=== PATIENT | female | born 1955 | race Caucasian/White ===

== ENCOUNTER → 2020-09-01 09:07 | Outpatient (CLI) | payer MEDICARE, SELFPAY ==
--- NOTE | ~2020-09-01 | DEXA_ITS ---
Bone Density Report Name: Mery Gutierrez Age: 65 Sex: Female Ethnicity: White Date of : 1955 Indication: postmenopausal; screening for osteoporosis; hysterectomy; Referring Provider: Kamilah Maynard Study: Bone densitometry was performed. Exam Date: September 01, 2020 Accession number: [id number] Bone Density: Region BMD T-score Z-score Classification AP Spine (L1-L4) 1.028 -0.2 1.8 Normal Femoral Neck (Left) 0.799 -0.5 1.2 Normal Total Hip (Left) 0.944 0.0 1.4 Normal Femoral Neck (Right) 0.663 -1.7 0.0 Osteopenia Total Hip (Right) 0.833 -0.9 0.5 Normal Total Hip Mean 0.889 -0.5 1.0 Normal World Health Organization criteria for BMD impression classify patients as: Normal (T-score at or above -1.0), Osteopenia (T-score between -1.0 and -2.5), or Osteoporosis (T-score at or below -2.5). 10-year Fracture Risk(1): Major Osteoporotic Fracture 8.4% Hip Fracture 1.0% Reported Risk Factors: [place] (), Neck BMD=0.663, BMI=42.8 Input outside FRAX(R) limits. Adjusted to:Duecaq=603 kg (1) FRAX(R) Version 3.08. Fracture probability calculated for an untreated patient. Fracture probability may be lower if the patient has received treatment. Clinical Information Provided by Patient: Has the following medical conditions: Hysterectomy Patient maximum height was 68.0 Menopause Age: 53 No regular weight bearing exercise Onset of menses at age 11 Number of children 3 Impression: The patient has low bone mass, based on the Right Femoral Neck T-score. The patient has an estimated ten-year risk of hip fracture of 1% and an estimated ten-year risk of major fracture of 8.4%, based on the WHO FRAX algorithm. Discussion: BONE DENSITY IS LOW AT ONE OR MORE SKELETAL SITES. This patient's lowest T-score is low at one or more skeletal sites. It meets the World Health Organization's (WHO) criteria for ?low bone mass? (T-score between -1.0 and -2.5). The patient's 10-year risk of fracture as calculated by FRAX is less than the threshold where pharmacological therapy is recommended by the National Osteoporosis Foundation (NOF). However, all treatment decisions require clinical judgment and consideration of individual patient factors, including patient preferences, comorbidities, previous drug use, risk factors not captured in the FRAX model (e.g., frailty, falls, vitamin D deficiency, increased bone turnover, interval significant decline in bone density) and possible under or overestimation of fracture risk by FRAX. The patient should follow a healthful lifestyle (good nutrition with adequate calcium and vitamin D, and appropriate weight-bearing exercise). Follow-Up: Consider repeating this study in 2 to 3 years to reassess this patient's status, or sooner if there is some new clinical indication.
--- NOTE | ~2020-09-01 | MM_ITS ---
EXAMINATION: MM screening shelly BI w simona HISTORY: Screening mammogram TECHNIQUE: Craniocaudal and mediolateral oblique 3-D tomosynthesis images were obtained and synthetic 2-D images were generated. CAD analysis was submitted and interpreted. COMPARISON: 05/10/2019, 02/16/2018 bilateral digital screening mammogram examinations BREAST PARENCHYMAL COMPOSITION: There are scattered areas of fibroglandular density. FINDINGS: Heart monitor device is noted in the left breast. There are some new microcalcifications in the posterior inner right breast. Diagnostic right mammogra m is recommended, with ultrasound if required. Otherwise no suspicious mass, architectural distortion, malignant calcification, skin thickening or r etraction or significant new or developing density of either breast is evident. IMPRESSION: 1. New microcalcifications in posterior inner right breast 2. Diagnostic right mammogram is recommended, with ultrasound if required BI-RADS Category 0: Incomplete: Needs additional imaging evaluation. Reviewed, dictated and finalized at location A. USION MANAGER
== END ==
PROVIDERS: PCP Family Medicine; Visit Provider Physician Assistant
DX: Z78.0 Asymptomatic menopausal state (principal); Z12.31 Encounter for screening mammogram for malignant neoplasm of breast; R92.8 Other abnormal and inconclusive findings on diagnostic imaging of breast; M85.851 Other specified disorders of bone density and structure, right thigh
CPT/HCPCS: 77063; 77067; 77080

== ENCOUNTER → 2020-09-26 09:28 | Outpatient (CLI) | payer MEDICARE, SELFPAY ==
--- NOTE | ~2020-09-26 | MM_ITS ---
EXAMINATION: MM diagnostic mammo unilat RT HISTORY: Indeterminate right breast calcifications on screening mammogram TECHNIQUE: Additional images of the right breast were performed. CAD analysis was submitted and inter preted. COMPARISON: 09/01/2020, 05/10/2019, 02/16/2018 FINDINGS: There are a few groups of punctate calcifications scattered throughout the outer breast whi ch appear round in morphology. No associated mass is identified. IMPRESSION: 1. Probably benign right breast calcifications. 2. Recommend 6 month follow-up right diagnostic mammogram. BI-RADS category 3, probably benign findings. Reviewed, dictated and finalized at location A.
== END ==
PROVIDERS: PCP Family Medicine; Visit Provider Family Medicine
DX: R92.1 Mammographic calcification found on diagnostic imaging of breast (principal)
CPT/HCPCS: 77065

== ENCOUNTER → 2021-04-17 09:19 | Outpatient (CLI) | payer MEDICARE, SELFPAY ==
--- NOTE | ~2021-04-17 | MM_ITS ---
EXAMINATION: MM diagnostic shelly RT w simona HISTORY: Follow-up calcifications TECHNIQUE: Additional 3-D tomosynthesis images of the right breast were performed and synthetic 2-D i mages were generated. CAD analysis was submitted and interpreted. COMPARISON: Comparison to multiple prior studies sequentially, with oldest reviewed study dated 02/16. BREAST PARENCHYMAL COMPOSITION: Breast composed of scattered areas of fibroglandular density. FINDINGS: There are scattered stable punctate right breast calcifications without significant interva l change. No new masses or architectural distortion. IMPRESSION: 1. Stable likely benign right breast calcifications. 2. Recommend 6 month follow-up diagnostic bilateral mammogram. BI-RADS category 3, probably benign findings. Reviewed, dictated and finalized at location A.
== END ==
PROVIDERS: PCP Family Medicine; Visit Provider Physician Assistant
DX: R92.8 Other abnormal and inconclusive findings on diagnostic imaging of breast (principal); R92.1 Mammographic calcification found on diagnostic imaging of breast
CPT/HCPCS: 77061; 77065; G0279

== ENCOUNTER 2021-07-24 08:41 | Outpatient (CLI) | payer MEDICARE, SELFPAY ==
--- NOTE | ~2021-07-24 | US_ITS ---
EXAMINATION: US retroperitoneal comp DATE: 07/24/2021 09:35 INDICATION: Sudden worsening of renal function TECHNIQUE: Multiple ultrasound grayscale images of the kidneys were obtained. COMPARISON: None. FINDINGS: The right kidney measures 12.7 x 5.6 x 4.4 cm. The left kidney measures 11.7 x 4.3 x 4.6 cm. Diffuse mild bilateral renal cortical atrophy with normal echogenicity. There is no hydronephrosis in either kidney. No stones identified. The bladder is normal. IMPRESSION: 1. Likely age-related diffuse mild bilateral renal cortical atrophy. No hydronephrosis. Reviewed, dictated and finalized at location A. CAL EFFECTS CAMERA OPERATOR IMPRESSION: 1. Likely age-related diffuse mild bilateral renal cortical atrophy. No hydron ephrosis.
== END 2021-07-24 08:42 | disposition home or self-care (01) ==
PROVIDERS: PCP Family Medicine; Visit Provider Family Medicine
DX: E13.29 Other specified diabetes mellitus with other diabetic kidney complication (principal); N28.9 Disorder of kidney and ureter, unspecified; N26.1 Atrophy of kidney (terminal)
CPT/HCPCS: 76770

== ENCOUNTER 2021-08-17 10:48 | Observation (INO) | payer MEDICARE, SELFPAY ==
[2021-08-17] VITALS (26 sets, daily range): BP systolic 119–182; BP diastolic 52–155; PULSE 73–88; RESP 11–21; TEMP 36.8–36.9; O2SAT 97–100; BMI 42.5
--- NOTE | ~2021-08-17 | US_ITS ---
EXAMINATION: US carotid duplex BI DATE: 08/17/2021 13:49 INDICATION: Right-sided weakness TECHNIQUE: Grayscale, color Doppler, and pulsed Doppler images of the cervical carotid arteries were obtained. The degree of vessel stenosis is placed in one of the following categories: normal, <50%, 5 0-69%, >=70% but less than near-occlusion, near-occlusion, or total occlusion. Note that percent sten osis relative to normal distal artery lumen diameter is indirectly measured from velocity measurement s as described by Bakari, et al. Radiology 2003; 229:340-346. COMPARISON: None. FINDINGS: RIGHT: The right common carotid artery (CCA) peak systolic velocity (PSV) is 55 cm/s. The right internal car otid artery (ICA) PSV is 66 cm/s. The right ICA end-diastolic velocity (EDV) is 16 cm/s. The right IC A/CCA PSV ratio is 1.2. Grayscale and color Doppler images yield an estimate of less than 50%/greater than or equal to 50% diameter reduction from plaque in the ICA. The external carotid artery (ECA) PS V is 82 cm/s. There is antegrade flow in the right vertebral artery. LEFT: The left CCA PSV is 71 cm/s. The left ICA PSV is 76 cm/s. The left ICA EDV is 14 cm/s. The left ICA/C CA PSV ratio is 1.1. Grayscale and color Doppler images yield an estimate of less than 50%/greater th an or equal to 50% diameter reduction from plaque in the ICA. The ECA PSV is 106 cm/s. There is anteg rade flow in the left vertebral artery. IMPRESSION: 1. <50% stenosis in the right internal carotid artery. 2. <50% stenosis in the left internal carotid artery. Reviewed, dictated and finalized at location A. TH CARE ASSISTANT
--- NOTE | ~2021-08-17 | CT_ITS ---
EXAMINATION: CTA brain carotid DATE: 08/17/2021 12:11 INDICATION: Right-sided weakness TECHNIQUE: Computed tomographic angiography (CTA) of the head was performed without and with 100 mL O mnipaque-350 intravenous contrast. CTA of the neck was performed with intravenous contrast. The dose- length product was 1827.97 mGy-cm. Maximum intensity projection and volume rendered 3D-reconstruction s were created by the technologist on a separate workstation. Automated exposure control and iterativ e reconstruction technique were employed. COMPARISON: None. FINDINGS: HEAD CTA: There is no intracranial hemorrhage or abnormal mass lesion. There is encephalomalacia in t he right frontal lobe at the site of prior infarction. Low attenuation and loss of damon-white differe ntiation are seen in the right frontoparietal region. The ventricles are normal. There is no abnormal mass effect or midline shift. The basal cisterns are patent. Changes in the globes are likely from o cular lens surgery. The paranasal sinuses, mastoids and calvarium are normal. There is no significant stenosis of the basilar artery or posterior cerebral arteries. There is no si gnificant stenosis of the intracranial internal carotid arteries or the anterior or middle cerebral a rteries. The anterior communicating artery and posterior communicating arteries are normal. There is no aneurysm. NECK CTA: The thyroid gland is unremarkable. The submandibular and parotid glands are symmetric. Ther e is no lymphadenopathy. There are no masses identified. The airway is unremarkable. There are no oss eous abnormalities. The superior mediastinum is unremarkable. There is transverse intraluminal fillin g defect near the origins of the right subclavian and right common carotid arteries. There is 0% stenosis of the proximal right internal carotid artery relative to normal distal artery l umen diameter (NASCET criteria). There is 0% stenosis of the proximal left internal carotid artery re lative to normal distal artery lumen diameter. IMPRESSION: 1. Encephalomalacia in the right frontal lobe at the site of prior infarction. Low-attenuation loss o f damon-white differentiation in the right frontoparietal region are consistent with age indeterminate infarct. Normal head CTA. 2. 0% stenosis of the proximal right internal carotid artery relative to normal distal artery lumen d iameter (NASCET criteria). 3. 0% stenosis of the proximal left internal carotid artery relative to normal distal artery lumen di ameter. 4. Transverse intraluminal filling defect at the origins of the right subclavian right common carotid arteries which could reflect dissection versus severe stenosis. Reviewed, dictated and finalized at location A. MENT PROCESSING SPECIALIST IMPRESSION: 1. Encephalomalacia in the right frontal lobe at the site of prior infarction. Low-attenuation loss of damon-white differentiation in the right frontoparietal region are consistent with age indeterminate infarct. Normal head CTA. 2. 0% stenosis of the proximal right internal carotid artery relative to normal distal artery lumen diameter (NASCET criteria). 3. 0% stenosis of the proximal left internal carotid artery relative to normal distal artery lumen diameter. 4. Transverse intraluminal filling defect at the origins of the right subclavia n right common carotid arteries which could reflect dissection versus severe st enosis.
--- NOTE | ~2021-08-17 | XR_ITS ---
EXAMINATION: XR chest 1V portable INDICATION: Right-sided weakness TECHNIQUE: Portable AP chest at 1107 hours COMPARISON: None available FINDINGS: The lungs are free of acute opacities. There is no pleural effusion or pneumothorax. The ca rdiomediastinal silhouette is normal. IMPRESSION: 1. No acute cardiopulmonary abnormality. Reviewed, dictated and finalized at location A. T ADJUSTER
--- NOTE | 2021-08-17 11:02 | ECG_ITS ---
Measurements Intervals [place] Rate: 76 P: 37 VT: 187 QRS: -10 QRSD: 77 T: 9 QT: 387 QTc: 437 Interpretive Statements SINUS RHYTHM INCOMPLETE RIGHT BUNDLE BRANCH BLOCK VOLTAGE CRITERIA FOR LVH CONSIDER INFERIOR INFARCT, AGE INDETERMINATE BASELINE ARTIFACT- V1-V2 ABNORMAL ECG Electronically Signed On 08-17-2021 12:07:11 INTAKE RN by Benjamin Davis D.O.
[2021-08-17 11:03] LABS: Glucose Point of Care 148 mg/dl (65-105)
--- NOTE | 2021-08-17 11:03 | ED.WEAKNESS ---
HPI - Weakness General Chief complaint: Suspected CVA Stated complaint: right sided numbness Time Seen by Provider: 08/17/21 10:51 Source: RN notes reviewed History of Present Illness HPI Narrative: Patient presents emergency department from home for right-sided weakness. Patient states symptoms began approximately 3:30 PM yesterday. She states she noticed numbness in her right arm and her right leg as well as some feeling unsteady with walking she also noted some weakness in her right hand states she has been dropping things in her right hand she denies any trouble speaking she denies any fever chills chest pain shortness of breath abdominal pain or any other symptoms states she does not take any blood thinners Related Data Allergies Allergy/AdvReac Type Severity Reaction Status Date / Time cephalexin Allergy Unknown Diarrhea Verified 08/17/21 10:59 Review of Systems Review of Systems: Gen.: Denies fevers or chills Eyes: Denies eye pain or visual change ENT: Denies congestion Respiratory: Denies shortness of breath or cough CV: Denies chest pain or palpitations GI: Denies abdominal pain nausea, emesis or diarrhea Musculoskeletal: Denies back pain or muscle pain Neuro: D see HPI Skin: Denies rash Except as documented, all other systems reviewed and negative PMFSH Past Medical History Medical History Acquired hypothyroidism Bilateral cataracts BMI greater than 40 Chronic kidney disease, stage 3 (moderate) Degenerative joint disease of knee Essential (primary) hypertension History of radioactive iodine thyroid ablation Hypersomnia Mixed hyperlipidemia Morbid obesity Pain, joint, knee, left 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, unspecified Surgical History Surgical History History of arthroscopy of both shoulders History of carpal tunnel release of both wrists History of cholecystectomy History of hysterectomy Family History Family History Sibling Diabetes mellitus Family history of cardiovascular disease, Onset Age: 62 Family history of malignant neoplasm Mother Hypertension Father Patient's father is Other Family history of arthritis Social History Social History Social History: Smoking status: Never smoker Second hand tobacco smoke exposure: No Alcohol intake: never Substance use: never Substance use type: does not use Gender identity (if verbalized by the patient): Female Sexual Orientation (if Verbalized by the Patient): Straight or Heterosexual Exam Narrative: APPEARANCE: No acute distress, nontoxic, resting in bed HEENT: Normocephalic, atraumatic, OMM, EYES: PERRL, EOMI NECK: Supple, nontender, full range of motion without pain, no meningismus RESPIRATORY: No respiratory distress, clear to auscultation bilaterally with no rhonchi wheezing or rales CARDIOVASCULAR: RRR s murmur ABDOMINAL: Soft, nontender, nondistended MUSCULOSKELETAL: Moves all extremities. No clubbing, cyanosis or edema. NEURO: A and O ?3, following commands, speech normal, no facial droop, muscle strength 4-5 in the right upper extremity and 5 out of 5 in left upper extremity, muscle strength 5/5 in bilateral lower extremities, decreased sensation in right upper and lower extremity compared to SKIN:: Warm, dry. Normal Color PSYCHIATRIC: Normal affect/mood Course Course Emergency Course: Patient states that she did have a stroke on the right side approximately 6 years ago she is on blood thinners for a while following that but was taken off them several years later has not been on any blood thinners Discussed with Dr. Dickens presentation and work-upagrees with consult
[2021-08-17 11:21] LABS: Basophils Absolute Auto 0.1 K/mm3 (0.0-0.1); Basophils Percent Auto 0.9 % (0.2-1.2); Eosinophils Absolute Auto 0.2 K/mm3 (0-0.3); Eosinophils Percent Auto 1.9 % (0-4.4); Hematocrit 41.1 % (37.0-47.0); Hemoglobin 13.4 g/dL (12.0-15.0); Immature Granulocyte Absolute 0.03 K/mm3 (0.00-0.031); Immature Granulocyte Percent A 0.4 % (0-0.5); Lymphocytes Absolute Auto 2.42 K/mm3 (0.9-3.2); Lymphocytes Percent Auto 31.3 % (18.3-44.2); Mean Corpuscular HGB Conc 32.6 g/dl (32-36); Mean Corpuscular Hemoglobin 30.5 pg (26-34); Mean Corpuscular Volume 93.4 fl (80-100); Mean Platelet Volume 10.9 fl (7.4-10.4); Monocytes Absolute Auto 0.5 K/mm3 (0.1-0.6); Monocytes Percent Auto 5.8 % (2.6-8.5); Neutrophils Absolute Auto 4.6 K/mm3 (1.3-6.7); Neutrophils Percent Auto 59.7 % (45.5-73.1); Platelet Count Result 195 k/mm3 (150-375); Red Cell Distribution Width 12.8 % (11.5-14.5); White Blood Count 7.7 K/mm3 (4.5-10.0)
[2021-08-17 11:35] LABS: Alanine Aminotransferase 17 U/L (4-35); Albumin Level 4.2 g/dL (3.5-5.1); Alkaline Phosphatase 67 U/L (38-126); Anion Gap 13 mmol/L (8-16); Aspartate Amino Transferase 27 U/L (14-36); Bilirubin,Total 0.9 mg/dL (0.2-1.3); Blood Urea Nitrogen 18 mg/dL (7-17); Calcium 9.1 mg/dL (8.4-10.2); Carbon Dioxide 22 mmol/L (22-30); Chloride 102 mmol/L (98-107); Estimated CRCL calculation 58 ml/min; Estimated Glomerular Filt Rate 45; Glucose 152 mg/dL (65-110); INR 1.2; Potassium 4.1 mmol/L (3.4-5.0); Prothrombin Time 14.7 Seconds (11.1-14.7); Sodium 137 mmol/L (137-145)
[2021-08-17 11:36] LABS: Partial Thromboplastin Time 29.2 SECONDS (22.3-36.8)
[2021-08-17 11:49] LABS: Troponin I < 0.012 ng/mL (0.000-0.034)
[2021-08-17] MEDS: ASPIRIN 81 MG CHEWABLE TABLET 324 MG PO (15:13)
--- NOTE | 2021-08-17 16:25 | ADMGEN ---
This patient, Mery Gutierrez, was admitted to Medical Room 252-. Patient/family oriented to hospital policies and general routines including ID bracelet, bed and alarms, visiting hours, pain management, procedures, bathroom and other care routines, personal items, smoking policy, room service/diet, and visiting hours. Information on how to activate the Rapid Response Team has been discussed. Patient/Family are encouraged to report perceived risks to care and to ask questions if they do not understand what they are told or what they should do.
[2021-08-17] MEDS: ACETAMINOPHEN 325 MG TABLET 650 MG PO (20:41)
--- NOTE | 2021-08-17 20:44 | PHAR ---
PT HOME MED TRULICITY (DULAGLUTIDE) 3 MG/0.5 ML PEN INJECTOR VERIFIED BY PHARMACY
[2021-08-17] MEDS: VERAPAMIL HCL ER 120 MG TABLET PO (21:19)
--- NOTE | 2021-08-17 22:37 | PM.IMHP ---
H&P: HPI History of Present Illness Date/Time: 08/17/21 22:37 this is a 66-year-old female patient who came to the emergency room with complaints of right-sided weakness. The patient's symptoms started yesterday at 3:30 a.m.. The patient does not have any focal weakness but tells me that she feels numb in her hands. She has never been diagnosed with neuropathy but is diabetic. The patient has had a history of having carpal tunnel release as well as ulnar nerve release. The patient stated that she keeps dropping things. She can not feel that she is holding them in her hands and it is both of her hands. The patient also stated that she feels off balance when she walks. I explained to her that the MRI machine is not available at this time. Neurology has been consulted and agrees to see the patient. She has no difficulty speaking. Carotid Doppler study was read as less than 50% stenosis on the right and left internal carotid. Head neck CTA was read as the following 1. Encephalomalacia in the right frontal lobe at the site of prior infarction. Low-attenuation loss of damon-white differentiation in the right frontoparietal region are consistent with age indeterminate infarct. Normal head CTA. 2. 0% stenosis of the proximal right internal carotid artery relative to normal distal artery lumen diameter (NASCET criteria). 3. 0% stenosis of the proximal left internal carotid artery relative to normal distal artery lumen diameter. 4. Transverse intraluminal filling defect at the origins of the right subclavian right common carotid arteries which could reflect dissection versus severe stenosis. chest x-ray was read as no acute cardiopulmonary abnormality. The patient was given an aspirin. Creatinine 1.2 which is at her baseline. Blood sugar 152. Last A1c last month was 7.1. The patient is being admitted to observation status on the date of service 08/17/2021. Chief Complaint: Numbness and tingling to hands. Review of Systems Review of Systems: All systems reviewed & are unremarkable except as noted in HPI and below Constitutional: Constitutional: Reports as per HPI and Reports no additional constitutional complaints Eyes: Eyes: Reports as per HPI and Reports no additional eye complaints ENT: Reports system reviewed and no additional complaints, except as documented and Reports Normal hearing present Cardiovascular: Cardiovascular: Reports no additional cardiovascular complaints Respiratory: Respiratory: Reports no additional respiratory complaints and Reports no additional respiratory complaints Gastrointestinal: Gastrointestinal: Reports as per HPI and Reports no additional gastrointestinal complaints Musculoskeletal: Musculoskeletal: Reports no additional musculoskeletal complaints Integumentary/Breasts: Skin/Breast: Reports system reviewed and no additional complaints, except as docu and Reports as per HPI Neurologic: Reports system reviewed and no additional complaints, except as documented, Reports as per HPI and Reports Normal hearing present Psychiatric: Psychiatric: Reports no additional psychiatric complaints and Reports as per HPI Endocrine: Endocrine: Reports no additional endocrine complaints Hematologic/Lymphatic: Hematologic/Lymphatic: Reports no additional hematologic/lymphatic complaints Allergic/Immunologic: Allergic/Immunologic: Reports no additional allergic/immunologic complaints [facility] Past Medical History Medical History (Updated 08/17/21 @ 22:44 by No Lucio NP) Acquired hypothyroidism Bilateral cataracts BMI greater than 40 Chronic kidney disease, stage 3 (moderate) Degenerative joint disease of knee Essential (primary) hypertension History of atrial fibrillation History of radioactive iodine thyroid ablation Hypersomnia Mixed hyperlipidemia Morbid obesity Pain, joint, knee, left 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
[2021-08-18] VITALS (12 sets, daily range): BP systolic 102–146; BP diastolic 48–70; PULSE 70–83; RESP 18–20; TEMP 36.3–37; O2SAT 95–98
[2021-08-18 00:09] LABS: Glucose Point of Care 127 mg/dl (65-105)
[2021-08-18] MEDS: ACETAMINOPHEN 325 MG TABLET 650 MG PO ×3 (02:12→14:37)
[2021-08-18 05:10] LABS: Basophils Absolute Auto 0.1 K/mm3 (0.0-0.1); Basophils Percent Auto 0.7 % (0.2-1.2); Eosinophils Absolute Auto 0.2 K/mm3 (0-0.3); Eosinophils Percent Auto 2.4 % (0-4.4); Hematocrit 39.7 % (37.0-47.0); Immature Granulocyte Absolute 0.02 K/mm3 (0.00-0.031); Immature Granulocyte Percent A 0.2 % (0-0.5); Lymphocytes Absolute Auto 3.25 K/mm3 (0.9-3.2); Lymphocytes Percent Auto 36.6 % (18.3-44.2); Mean Corpuscular HGB Conc 32.7 g/dl (32-36); Mean Corpuscular Hemoglobin 30.3 pg (26-34); Mean Corpuscular Volume 92.5 fl (80-100); Mean Platelet Volume 11.1 fl (7.4-10.4); Monocytes Absolute Auto 0.7 K/mm3 (0.1-0.6); Monocytes Percent Auto 7.9 % (2.6-8.5); Neutrophils Absolute Auto 4.6 K/mm3 (1.3-6.7); Neutrophils Percent Auto 52.2 % (45.5-73.1); Platelet Count Result 208 k/mm3 (150-375); Red Blood Count 4.29 M/mm3 (4.2-5.4); White Blood Count 8.9 K/mm3 (4.5-10.0)
[2021-08-18 05:43] LABS: Anion Gap 7 mmol/L (8-16); Blood Urea Nitrogen 18 mg/dL (7-17); CRP 0.6 mg/dL (<1.0); Calcium 9.4 mg/dL (8.4-10.2); Carbon Dioxide 29 mmol/L (22-30); Chloride 100 mmol/L (98-107); Estimated CRCL calculation 54 ml/min; Estimated Glomerular Filt Rate 41; Glucose 127 mg/dL (65-110); Potassium 3.9 mmol/L (3.4-5.0); Sodium 136 mmol/L (137-145)
[2021-08-18 06:26] LABS: Hemoglobin A1C 6.8 % (<5.7)
[2021-08-18] MEDS: LEVOTHYROXINE SODIUM 150 MCG TABLET PO (06:29)
[2021-08-18 06:44] LABS: Folic Acid 9.5 ng/mL (2.76->20)
[2021-08-18 07:41] LABS: Glucose Point of Care 130 mg/dl (65-105)
[2021-08-18] MEDS: hydroCHLOROthiazide 12.5 MG CAPSULE PO (08:23)
[2021-08-18] MEDS: LOSARTAN POTASSIUM 100 MG TABLET PO (08:23)
[2021-08-18] MEDS: ASPIRIN 325 MG ENTERIC TABLET PO (08:23)
[2021-08-18] MEDS: PANTOPRAZOLE 40 MG TABLET PO (08:23)
[2021-08-18] MEDS: ATORVASTATIN 10 MG TABLET PO (08:24)
--- NOTE | 2021-08-18 10:13 | PM.IMPN ---
Progress Note: A&P Assessment and Plan (1) Acute right-sided muscle weakness: Code(s): M62.81 - Muscle weakness (generalized) Status: Acute Assessment and Plan: -c/o weakness bilateral hands, worse on the R side with associated bilateral hand numbness -symptoms have almost completely resolved at this time -she does have a history of carpal tunnel syndrome with ulnar nerve release. -Patient may possibly have neuropathy, does have hx of DM. -may also need a nerve conduction test. -unable to perform MRI secondary to loop recorder -Neurology has been consulted. -She has been started on an aspirin. (2) CVA (cerebral vascular accident): Code(s): I63.9 - Cerebral infarction, unspecified Status: Acute Assessment and Plan: -hx of CVA w/ no residual deficit -hx of paroxysmal afib not on anticoagulation -check echocardiogram -unable to perform MRI secondary to loop recorder -Neurology has been consulted. (3) Diabetes mellitus with stage 3 chronic kidney disease: Code(s): E11.22 - Type 2 diabetes mellitus with diabetic chronic kidney disease; N18.30 - Chronic kidney disease, stage 3 unspecified Status: Acute Assessment and Plan: -Accu-Cheks AC and HS. -Sliding scale insulin. -Creatinine is 1.2 which is stable. (4) Mixed hyperlipidemia: Code(s): E78.2 - Mixed hyperlipidemia Status: Acute Assessment and Plan: -Continue with atorvastatin (5) Essential (primary) hypertension: Code(s): I10 - Essential (primary) hypertension Status: Acute Assessment and Plan: -stable -continue with losartan and verapamil (6) Acquired hypothyroidism: Code(s): E03.9 - Hypothyroidism, unspecified Status: Acute Assessment and Plan: -continue with levothyroxine -TSH WNL Subjective Date/time seen: 08/18/21 10:13 Interval history: Pt is a 66 yo female w/ hx of HTN, afib, acquired hypothyroid, HLD, DM, CKD III, and morbid obesity admitted for acute right sided weakness. Today patient states her symptoms have mostly resolved. Still has minimal numbness in her hands but no weakness. 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 Admits to intermittent mild headache. No N/V/dizziness/vision changes. No CP/SOB. Review of Systems Review of Systems: All systems reviewed & are unremarkable except as noted in HPI and below Exam Narrative: General: No acute distress, non toxic appearing, obese Eyes: PERRL, no scleral icterus HEENT: NCAT, external ears normal, MMM Respiratory: No respiratory distress, Lungs CTA bilaterally, no wheezing Cardiovascular: RRR, no murmur Abdominal: Soft, nontender, non distended, no rebound or guarding Musculoskeletal: Moves all 4 extremities, no edema Neurological: A/Ox3, speech normal, no facial asymmetry, 5/5 strength BUE and BLE Skin: Warm, dry, no rashes Psychiatric: Normal affect, normal mood Objective Data Vital Signs Vital Signs: Vital Signs - 24 hr 08/17/21 10:54 08/17/21 10:58 08/17/21 11:00 Temperature 98.2 F Pulse Rate 81 81 84 Respiratory Rate 17 15 16 Blood Pressure 176/80 H Pulse Oximetry 98 100 100 08/17/21 11:02 08/17/21 11:16 08/17/21 11:30 Temperature Pulse Rate 82 78 77 Respiratory Rate 14 12 12 Blood Pressure 176/76 H Pulse Oximetry 100 08/17/21 11:31 08/17/21 11:45 08/17/21 12:16 Temperature Pulse Rate 79 77 77 Respiratory Rate 21 H 20 Blood Pressure 152/121 H Pulse Oximetry 08/17/21 12:17 08/17/21 12:30 08/17/21 12:32 Temperature Pulse Rate 75 74 Respiratory Rate 16 16 Blood Pressure 144/75 H 182/155 H Pulse Oximetry 08/17/21 12:45 08/17/21 12:49 08/17/21 12:50 Temperature Pulse Rate 75 75 77 Respiratory Rate 15 14 16 Blood Pressure 155/63 H Pulse Oximetry 97 08/17/21 14:02 08/17/21 14:18 08/17/21 14:30 Onward
[2021-08-18 11:33] LABS: Glucose Point of Care 106 mg/dl (65-105)
--- NOTE | 2021-08-18 12:30 | WPDNEURCNPN ---
Assessment and Plan Additional Plan 1 TIA with transfers intraluminal filling defect at the origin of the right subclavian right common carotid arteries which could reflect dissection versus severe stenosis will need the vascular consultation2 encephalomalacia in the right frontal lobe at the site of the previous infarction3 diabetic neuropathy with history of bilateral ulnar nerve transposition and carpal tunnel release but ongoing complaint of numbness and weakness4 continuation of aspirin5 MRI of the head will be obtained coming week for further delineation and also for the follow-up with the vascular surgeon Consult date: 08/18/21 HPI: Mery Gutierrez is a 66 year old female[facility] complaints of right sided weakness of [id number] durations since 3:30 a.m. before the day of admission she complains of numbness in her hands she is a known diabetic but has not been diagnosed to have any diabetic neuropathy but she has had the carpal tunnel and ulnar nerve release in the past he complained of dropping things out of her hand additionally she complains of being off the balance her initial Doppler study of the carotid was read as less than 50% stenosis on the right and left but the CT head and neck CTA documented encephalomalacia in the right frontal lobe at the site of the previous in fact infarction low attenuation loss of damon white matter differentiation in the right frontoparietal area again consistent with the age indeterminate infarct but otherwise CTA was normal the documented transverse intraluminal filling defect at the origin of the right subclavian and right common carotid arteries which could reflex dissection versus severe stenosis patient was given aspirin in the emergency room her blood sugar was documented as 152 with A1c of 7.1 in the past , her past history is consistent with the acquired hypothyroidism bilateral cataracts chronic kidney disease stage 3 hypo history of atrial fibrillation pain in the joints particular the left knee with try compartmental osteoarthritis, history of cataract extraction carpal tunnel release bilaterally along with the bilateral ulnar nerve transposition Review of Systems Review of Systems: All systems reviewed & are unremarkable except as noted in HPI and below PMFSH Past Medical History Medical History Acquired hypothyroidism Bilateral cataracts BMI greater than 40 Chronic kidney disease, stage 3 (moderate) Degenerative joint disease of knee Essential (primary) hypertension History of atrial fibrillation History of radioactive iodine thyroid ablation Hypersomnia Mixed hyperlipidemia Morbid obesity Pain, joint, knee, left 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, unspecified Surgical History Surgical History H/O cataract extraction History of arthroscopy of both shoulders Arthroplasty History of carpal tunnel release of both wrists ulnar nerve release as well History of cholecystectomy History of hysterectomy Family History Family History Sibling Diabetes mellitus Family history of cardiovascular disease, Onset Age: 62 Family history of malignant neoplasm Mother Hypertension Father Patient's father is Other Family history of arthritis Social History Social History Social History: she is and has 3 children. She is a lifelong nonsmoker. She does not use any alcohol marijuana or illicit drugs. She is worked in a grocery store. Her is a durable power integrity engineer for healthcare. Code status full code. Smoking status: Never smoker Second hand tobacco smoke exposure: No Alcohol intake:
[2021-08-18 16:38] LABS: Glucose Point of Care 117 mg/dl (65-105)
[2021-08-18] MEDS: VERAPAMIL HCL ER 120 MG TABLET PO (21:07)
[2021-08-18 21:42] LABS: Glucose Point of Care 122 mg/dl (65-105)
[2021-08-19] VITALS (13 sets, daily range): BP systolic 115–136; BP diastolic 51–80; PULSE 68–75; RESP 16–18; TEMP 36.2–36.8; O2SAT 97–100
[2021-08-19] MEDS: ACETAMINOPHEN 325 MG TABLET 650 MG PO ×2 (02:26→15:40)
[2021-08-19] MEDS: LEVOTHYROXINE SODIUM 150 MCG TABLET PO (05:52)
[2021-08-19 05:55] LABS: Basophils Absolute Auto 0.1 K/mm3 (0.0-0.1); Basophils Percent Auto 0.9 % (0.2-1.2); Eosinophils Absolute Auto 0.2 K/mm3 (0-0.3); Hematocrit 39.9 % (37.0-47.0); Hemoglobin 12.9 g/dL (12.0-15.0); Immature Granulocyte Absolute 0.02 K/mm3 (0.00-0.031); Immature Granulocyte Percent A 0.2 % (0-0.5); Lymphocytes Absolute Auto 3.09 K/mm3 (0.9-3.2); Lymphocytes Percent Auto 38.2 % (18.3-44.2); Mean Corpuscular HGB Conc 32.3 g/dl (32-36); Mean Corpuscular Hemoglobin 30.1 pg (26-34); Mean Corpuscular Volume 93.2 fl (80-100); Mean Platelet Volume 10.8 fl (7.4-10.4); Monocytes Absolute Auto 0.7 K/mm3 (0.1-0.6); Monocytes Percent Auto 8.2 % (2.6-8.5); Neutrophils Percent Auto 49.5 % (45.5-73.1); Platelet Count Result 196 k/mm3 (150-375); Red Blood Count 4.28 M/mm3 (4.2-5.4); Red Cell Distribution Width 13.1 % (11.5-14.5); White Blood Count 8.1 K/mm3 (4.5-10.0)
[2021-08-19 06:04] LABS: Alanine Aminotransferase 18 U/L (4-35); Albumin Level 3.9 g/dL (3.5-5.1); Alkaline Phosphatase 58 U/L (38-126); Anion Gap 9 mmol/L (8-16); Aspartate Amino Transferase 29 U/L (14-36); Blood Urea Nitrogen 19 mg/dL (7-17); Calcium 8.9 mg/dL (8.4-10.2); Carbon Dioxide 27 mmol/L (22-30); Chloride 100 mmol/L (98-107); Estimated CRCL calculation 50 ml/min; Estimated Glomerular Filt Rate 37; Glucose 128 mg/dL (65-110); Potassium 3.8 mmol/L (3.4-5.0); Sodium 136 mmol/L (137-145)
[2021-08-19 07:45] LABS: Glucose Point of Care 168 mg/dl (65-105)
[2021-08-19] MEDS: LOSARTAN POTASSIUM 100 MG TABLET PO (08:20)
[2021-08-19] MEDS: ATORVASTATIN 10 MG TABLET PO (08:20)
[2021-08-19] MEDS: hydroCHLOROthiazide 12.5 MG CAPSULE PO (08:20)
[2021-08-19] MEDS: PANTOPRAZOLE 40 MG TABLET PO (08:20)
[2021-08-19] MEDS: ASPIRIN 325 MG ENTERIC TABLET PO (08:20)
--- NOTE | 2021-08-19 09:39 | PM.IMPN ---
Progress Note: A&P Assessment and Plan (1) Acute right-sided muscle weakness: Code(s): M62.81 - Muscle weakness (generalized) Status: Acute Assessment and Plan: -c/o weakness bilateral hands, worse on the R side with associated bilateral hand numbness -symptoms have completely resolved at this time -she does have a history of carpal tunnel syndrome with ulnar nerve release -Patient may possibly have neuropathy, does have hx of DM -may also need a nerve conduction test -unable to perform MRI secondary to loop recorder (2) CVA (cerebral vascular accident): Code(s): I63.9 - Cerebral infarction, unspecified Status: Acute Assessment and Plan: -hx of CVA w/ no residual deficit -hx of paroxysmal afib not on anticoagulation -CTA head/neck with initial read showing transverse intraluminal filling defect at the origins of the right subclavian right common carotid arteries which could reflect dissection versus severe stenosis. -carotid dopplers negative, therefore addendum added to original CTA stating given the results from follow up carotid ultrasound, finding at the origin of the right subclavian and right common carotid arteries is likely due to vessel tortuosity rather than dissection. -unable to perform MRI secondary to loop recorder, see above -discussed with Dr. Dickens the updated addendum to the CTA saying there is not likely dissection. Also informed him that we cannot do the MRI due to her pacemaker. We are still pending the echo but once that is completed he states she can go home on 81 mg aspirin and follow up with him in the office in 3 months. (3) Diabetes mellitus with stage 3 chronic kidney disease: Code(s): E11.22 - Type 2 diabetes mellitus with diabetic chronic kidney disease; N18.30 - Chronic kidney disease, stage 3 unspecified Status: Acute Assessment and Plan: -Accu-Cheks AC and HS. -Sliding scale insulin. -Creatinine stable. (4) Mixed hyperlipidemia: Code(s): E78.2 - Mixed hyperlipidemia Status: Acute Assessment and Plan: -Continue with atorvastatin (5) Essential (primary) hypertension: Code(s): I10 - Essential (primary) hypertension Status: Acute Assessment and Plan: -stable -continue with losartan and verapamil (6) Acquired hypothyroidism: Code(s): E03.9 - Hypothyroidism, unspecified Status: Acute Assessment and Plan: -continue with levothyroxine -TSH WNL Subjective Date/time seen: 08/19/21 09:39 Interval history: Pt is a 66 yo female w/ hx of HTN, afib, acquired hypothyroid, HLD, DM, CKD III, and morbid obesity admitted for acute right sided weakness. Today patient states her symptoms have resolved. Still getting an intermittent mild headache but the paraesthesias and motor weakness have completely resolved. She denies vision changes, N/V, cp/sob. Review of Systems Review of Systems: All systems reviewed & are unremarkable except as noted in HPI and below Exam Narrative: General: No acute distress, non toxic appearing, obese Eyes: PERRL, no scleral icterus HEENT: NCAT, external ears normal, MMM Respiratory: No respiratory distress, Lungs CTA bilaterally, no wheezing Cardiovascular: RRR, no murmur Abdominal: Soft, nontender, non distended, no rebound or guarding Musculoskeletal: Moves all 4 extremities, no edema Neurological: A/Ox3, speech normal, no facial asymmetry, 5/5 strength BUE and BLE Skin: Warm, dry, no rashes Psychiatric: Normal affect, normal mood Objective Data Vital Signs Vital Signs: Vital Signs - 24 hr 08/18/21 12:00 08/18/21 15:00 08/18/21 16:00 Temperature 97.4 F L Pulse Rate 78 83 75 Respiratory Rate 20 Blood Pressure 110/70 Pulse Oximetry 98 08/18/21 19:33 08/18/21 19:35 08/18/21 19:38 Temperature 98.6 F Pulse Rate 70 Respiratory Rate 18 Blood Pressure
--- NOTE | 2021-08-19 10:26 | ECHO_ITS ---
Patient Info Name: Mery Gutierrez Age: 66 years : 1955 Gender: Female Ht: 69 in Wt: 287 lbs BSA: 2.58 m2 HR: 72 bpm BP: 122 / 80 mmHg Technical Quality: Good Exam Date: 08/19/2021 12:59 PM Exam Location: [facility] Patient Status: Outpatient Admit Date: 08/17/2021 Staff Ordering Physician: Delfina James PA-C Boiler Water Tester: Cash Murphy RDCS, RT Attending Provider: Delfina James PA-C Referring Physician: Erika SOTO; Exam Type: CA echo dop color flow w con Study Info Complete two-dimensional, color flow and Doppler transthoracic echocardiogram is performed with contrast to opacify the left ventricle and to improve the deliniation of the left ventricle endocardial borders. Summary 1. Left ventricular chamber dimension is normal. 2. Definity contrast administered improved wall motion interpretation. 3. Left ventricular systolic function is normal, estimated at 65-70%. 4. There is mildly increased left ventricular wall thickness. 5. The left ventricular diastolic function is grade I diastolic dysfunction. 6. E/e' 10 is mildly elevated. 7. Left atrial chamber dimension is moderately enlarged. 8. There is mild aortic valve regurgitation. 9. The mitral valve has moderately calcified leaflets. 10. There is trace tricuspid valve regurgitation. Left Ventricle E/e' 10 is mildly elevated. Definity contrast administered improved wall motion interpretation. Left ventricular chamber dimension is normal. Left ventricular systolic function is normal, estimated at 65-70%. There is mildly increased left ventricular wall thickness. The left ventricular diastolic function is grade I diastolic dysfunction. Right Ventricle Right ventricular systolic function is normal and with normal TAPSE 2.2 cm. Right ventricular chamber dimension is normal. Left Atria Left atrial chamber dimension is moderately enlarged. Right Atria Right atrial chamber dimension is normal. Aortic Valve The aortic valve is trileaflet. There is no aortic valve stenosis. There is mild aortic valve regurgitation. Pulmonic Valve There is no pulmonic regurgitation. Mitral Valve The mitral valve has moderately calcified leaflets. There is no mitral valve stenosis. There is no mitral valve regurgitation. Tricuspid Valve There is trace tricuspid valve regurgitation. RVSP is not calculated due to an inadequate TR jet. Pericardium/Pleural There is no pericardial effusion. Inferior Vena Cava Normal inferior vena cava with >50% collapse upon inspiration consistent with normal right atrial pressure, 5 mmHg. Aorta The aortic root size at the sinus of Valsalva is normal. Left Ventricular Outflow Tract Name Value Normal LVOT Doppler LVOT Peak Gradient 4 mmHg LVOT Mean Gradient 2 mmHg LVOT VTI 21.68 cm LVOT VTI/AV VTI Ratio 0.86 Mitral Valve Name Value Normal MV Doppler
[2021-08-19 11:23] LABS: Glucose Point of Care 137 mg/dl (65-105)
[2021-08-19] MEDS: PERFLUTREN LIPID MICROSPHERES 1.5 ML VIAL DILUTED TO 10 ML TOTAL VOLUME IV PUSH (13:15)
--- NOTE | 2021-08-19 13:15 | IVDEFINITY ---
Prior to administration of IV Definity the patient was educated on the risks and benefits of the imaging enhancing agent including potential adverse side effects. The patient verbalized understanding. Allergies were verified. No exclusion criteria were identified and at least one of the following inclusion criteria were met: 1) physician request, 2) patient technically difficult to image (per the [place] [employer] guidelines of two or more segments not discernable within the apical view), or 3) questionable left ventricular function. ?
[2021-08-19 16:29] LABS: Glucose Point of Care 109 mg/dl (65-105)
[2021-08-19 20:19] LABS: Glucose Point of Care 130 mg/dl (65-105)
[2021-08-19] MEDS: VERAPAMIL HCL ER 120 MG TABLET PO (20:23)
[2021-08-20] VITALS: PULSE 73
[2021-08-20 01:25] VITALS: O2SAT 96
[2021-08-20 04:00] VITALS: PULSE 68
[2021-08-20 04:17] VITALS: BP 120/60; PULSE 66; RESP 17; TEMP 36.2; O2SAT 98
[2021-08-20 05:51] LABS: Hematocrit 38.3 % (37.0-47.0); Hemoglobin 12.8 g/dL (12.0-15.0); Mean Corpuscular HGB Conc 33.4 g/dl (32-36); Mean Corpuscular Hemoglobin 30.4 pg (26-34); Mean Platelet Volume 10.6 fl (7.4-10.4); Platelet Count Result 206 k/mm3 (150-375); Red Blood Count 4.21 M/mm3 (4.2-5.4); Red Cell Distribution Width 12.9 % (11.5-14.5); White Blood Count 7.4 K/mm3 (4.5-10.0)
[2021-08-20 06:04] LABS: Anion Gap 8 mmol/L (8-16); Blood Urea Nitrogen 19 mg/dL (7-17); Calcium 8.8 mg/dL (8.4-10.2); Carbon Dioxide 26 mmol/L (22-30); Chloride 99 mmol/L (98-107); Estimated CRCL calculation 50 ml/min; Estimated Glomerular Filt Rate 37; Glucose 130 mg/dL (65-110); Potassium 3.5 mmol/L (3.4-5.0); Sodium 133 mmol/L (137-145)
[2021-08-20] MEDS: LEVOTHYROXINE SODIUM 150 MCG TABLET PO (06:09)
[2021-08-20 07:49] LABS: Glucose Point of Care 138 mg/dl (65-105)
[2021-08-20] MEDS: ASPIRIN 325 MG ENTERIC TABLET PO (07:58)
[2021-08-20] MEDS: ACETAMINOPHEN 325 MG TABLET 650 MG PO (07:58)
[2021-08-20] MEDS: PANTOPRAZOLE 40 MG TABLET PO (07:59)
[2021-08-20] MEDS: LOSARTAN POTASSIUM 100 MG TABLET PO (07:59)
[2021-08-20] MEDS: ATORVASTATIN 10 MG TABLET PO (07:59)
[2021-08-20] MEDS: hydroCHLOROthiazide 12.5 MG CAPSULE PO (07:59)
[2021-08-20 08:00] VITALS: PULSE 78
--- NOTE | 2021-08-20 08:45 | PM.IMPN ---
Progress Note: A&P Assessment and Plan (1) Acute right-sided muscle weakness: Code(s): M62.81 - Muscle weakness (generalized) Status: Acute Assessment and Plan: -c/o weakness bilateral hands, worse on the R side with associated bilateral hand numbness -symptoms have completely resolved at this time -she does have a history of carpal tunnel syndrome with ulnar nerve release -Patient may possibly have neuropathy, does have hx of DM -may also need a nerve conduction test -unable to perform MRI secondary to loop recorder -c/o weakness bilateral hands, worse on the R side with associated bilateral hand numbness -symptoms have completely resolved at this time -she does have a history of carpal tunnel syndrome with ulnar nerve release -Patient may possibly have neuropathy, does have hx of DM -may also need a nerve conduction test -unable to perform MRI secondary to loop recorder (2) CVA (cerebral vascular accident): Code(s): I63.9 - Cerebral infarction, unspecified Status: Acute Assessment and Plan: -hx of CVA w/ no residual deficit -hx of paroxysmal afib not on anticoagulation -CTA head/neck with initial read showing transverse intraluminal filling defect at the origins of the right subclavian right common carotid arteries which could reflect dissection versus severe stenosis. -carotid dopplers negative, therefore addendum added to original CTA stating given the results from follow up carotid ultrasound, finding at the origin of the right subclavian and right common carotid arteries is likely due to vessel tortuosity rather than dissection. -unable to perform MRI secondary to loop recorder, see above -discussed with Dr. Dickens the updated addendum to the CTA saying there is not likely dissection. Also informed him that we cannot do the MRI due to her pacemaker. We are still pending the echo but once that is completed he states she can go home on 81 mg aspirin and follow up with him in the office in 3 months. -hx of CVA w/ no residual deficit -hx of paroxysmal afib not on anticoagulation -CTA head/neck with initial read showing transverse intraluminal filling defect at the origins of the right subclavian right common carotid arteries which could reflect dissection versus severe stenosis. -carotid dopplers negative, therefore addendum added to original CTA stating given the results from follow up carotid ultrasound, finding at the origin of the right subclavian and right common carotid arteries is likely due to vessel tortuosity rather than dissection. -unable to perform MRI secondary to loop recorder, see above -discussed with Dr. Dickens the updated addendum to the CTA saying there is not likely dissection. Also informed him that we cannot do the MRI due to her pacemaker. We are still pending the echo but once that is completed he states she can go home on 81 mg aspirin and follow up with him in the office in 3 months. (3) Diabetes mellitus with stage 3 chronic kidney disease: Code(s): E11.22 - Type 2 diabetes mellitus with diabetic chronic kidney disease; N18.30 - Chronic kidney disease, stage 3 unspecified Status: Acute Assessment and Plan: -Accu-Cheks AC and HS. -Sliding scale insulin. -Creatinine stable. -Accu-Cheks AC and HS. -Sliding scale insulin. -Creatinine stable. (4) Mixed hyperlipidemia: Code(s): E78.2 - Mixed hyperlipidemia Status: Acute Assessment and Plan: -Continue with atorvastatin -Continue with atorvastatin (5) Essential (primary) hypertension: Code(s): I10 - Essential (primary) hypertension Status: Acute Assessment and Plan: -stable -continue with losartan and verapamil -stable -continue with losartan and verapamil (6) Acquired hypothyroidism: Code(s): E03.9 - Hypothyroidism, unspecified Stat
--- NOTE | 2021-08-20 10:49 | PM.DS ---
DS: Admitting Diagnosis Discharge Date 08/20/2021 Admitting Diagnosis Acute right-sided muscle weakness, CVA, diabetes stage 3 chronic kidney disease, hyperlipidemia, hypertension, hypothyroidism DS: Discharge Diagnosis Discharge Diagnosis (1) Acute right-sided muscle weakness: Code(s): M62.81 - Muscle weakness (generalized) Status: Acute Assessment and Plan: -c/o weakness bilateral hands, worse on the R side with associated bilateral hand numbness -symptoms have completely resolved at this time, she denies any weakness or numbness or paresthesias at this time. -she does have a history of carpal tunnel syndrome with ulnar nerve release -Patient may possibly have neuropathy, does have hx of DM -may also need a nerve conduction test -unable to perform MRI secondary to loop recorder -continuation of aspirin -patient was informed and instructed to address this at discharge, in discharge instructions: TIA with intraluminal filling defect at the origin of the right subclavian right common carotid arteries which could reflect dissection versus severe stenosis will need the vascular consultation after discharge. MRI of the head will be obtained coming week for further delineation and also for the follow-up with the vascular surgeon - She will follow-up with her primary care provider, neurologist Dr. Louise, and get an appointment scheduled to follow up with a vascular surgeon (2) CVA (cerebral vascular accident): Code(s): I63.9 - Cerebral infarction, unspecified Status: Acute Assessment and Plan: -hx of CVA w/ no residual deficit -hx of paroxysmal afib not on anticoagulation -CTA head/neck with initial read showing transverse intraluminal filling defect at the origins of the right subclavian right common carotid arteries which could reflect dissection versus severe stenosis. -carotid dopplers negative, therefore addendum added to original CTA stating given the results from follow up carotid ultrasound, finding at the origin of the right subclavian and right common carotid arteries is likely due to vessel tortuosity rather than dissection, but she can F/U with Vascular Surgeon for further evaluation. -unable to perform MRI secondary to loop recorder, see above -Hospitalist on 08/[address] Dickens the updated addendum to the CTA saying there is not likely dissection. Also informed him that we cannot do the MRI due to her pacemaker. - ECHO today wnl. Discussed results with patient. -discharged home on 81 mg aspirin and follow up with him in the office in 3 months. - She will follow-up with her primary care provider, neurologist Dr. Louise, and get an appointment scheduled to follow up with a vascular surgeon (3) Diabetes mellitus with stage 3 chronic kidney disease: Code(s): E11.22 - Type 2 diabetes mellitus with diabetic chronic kidney disease; N18.30 - Chronic kidney disease, stage 3 unspecified Status: Acute Assessment and Plan: -Accu-Cheks AC and HS. -Sliding scale insulin. -Creatinine stable. (4) Mixed hyperlipidemia: Code(s): E78.2 - Mixed hyperlipidemia Status: Acute Assessment and Plan: -Continue with atorvastatin (5) Essential (primary) hypertension: Code(s): I10 - Essential (primary) hypertension Status: Acute Assessment and Plan: -stable -continue with losartan and verapamil (6) Acquired hypothyroidism: Code(s): E03.9 - Hypothyroidism, unspecified Status: Acute Assessment and Plan: -continue with levothyroxine -TSH WNL DS: Summary Hospital Course Hospital Course: Patient was admitted with right-sided weakness and paresthesia, patient evaluated by Neurology, imaging and neurology workup completed, patient started on aspirin, symptoms resolved completely. Neurology okay with discharge and patient ready to go home today.- She will follow-up with her primary care provider, neurologist Dr. Louise, and get
[2021-08-20 11:42] LABS: Glucose Point of Care 101 mg/dl (65-105)
[2021-08-20 12:00] VITALS: PULSE 78
--- NOTE | 2021-08-20 12:12 | WPDNEUROPN ---
Progress Note: A&P Additional Plan 1. cerebrovascular accident old 2 right subclavian artery questionable tortuosity with normal carotid ultrasound will need a follow-up 3. Diabetes mellitus with neuropathy will need EMG and nerve conduction study as an outpatient 4 TIAfor the present admission. Time Spent With Patient Time with patient: 15 - 25 minutes Subjective Date/time seen: 08/20/21 12:12 TIA with initial documentation of intraluminal filling defect at the origin of the right subclavian artery and right common carotid arteries suggesting the possibility of the dissection versus severe stenosis but with subsequent Doppler study of the carotid being normal 2. 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 Diabetic neuropathy with history of bilateral ulnar nerve transposition and carpal tunnel releases but ongoing complaints of numbness and weakness with the possibility of the diabetic neuropathy patient is being discharged with instruction to return to the office for the follow-up particularly to keep an eye on the CTA findings and also consider the EMG and nerve conduction study as an outpatient. Review of Systems Review of Systems: All systems reviewed & are unremarkable except as noted in HPI and below Exam Const: General: cooperative, comfortable and no acute distress Nutritional Appearance: overweight Orientation/consciousness: oriented to person, oriented to place and oriented to time Limitations: no limitations HENMT: Head: normocephalic Ears: hearing grossly normal bilaterally General nose exam: Normal external nose present Face and sinus: normal facial exam Mouth: Yes Normal oral and palatal mucosa present Eyes: General: appearance normal, both eyes and all related structures Visual Moore: normal visual moore by confrontation Alignment and Position: alignment normal Periorbital: periorbital findings normal Eyelids: eyelids normal Conjunctivae: conjunctivae normal Sclera: sclerae normal Cornea: corneas normal Pupils: Equal, round and reactive pupils present EOM: EOMs intact bilaterally Neck: Neck: full ROM Carotids: normal carotid upstroke Lymphatic: no lymphadenopathy noted Resp: Effort & Inspection: able to speak in complete sentences Auscultation: clear to auscultation bilaterally Neuro: General: oriented to person, oriented to place and oriented to time Cranial nerves: Yes CN's II-XII intact bilaterally Cognition (Neuro): normal cognition Speech: normal speech Gait exam (Neuro): Normal gait present Motor exam (neuro): 5/5 motor strength present throughout, Pronator motor function not present and No tremor noted Sensory Exam: Sensory deficit (Neuro) Deep tendon reflexes (DTR's): Right triceps reflex intensity grade: 1+, Left triceps reflex intensity grade: 1+, Rt Biceps (C5, C6): 1+, Left biceps reflex intensity grade: 1+, Right brachioradialis reflex intensity grade: 1+, Left brachioradialis reflex intensity grade: 1+, Right patellar reflex intensity grade: 1+, Left patellar reflex intensity grade: 1+, Right ankle reflex intensity grade: 0 and Left ankle reflex intensity grade: 0 Plantar Reflex Responses: downgoing: bilateral Coordination: [id number] test normal and Romberg test positive Psych: Appearance: grossly normal Mental Status: mental status grossly normal Speech and movement: Normal speech and movement present Affect: normal affect Attitude: cooperative Thought process: Normal thought process present Thought content: Yes Normal thought content present Insight: Good insight present (Psych) Judgement: Good judgement present (Psych) Objective Data Vital Signs Vital Signs: Vital Signs - 24 hr 08/19/21 13:43 08/19/21 16:00 08/19/21 17:56 Temperature 36.4 C L Pulse Rate 73 74 Respiratory Rate 18 Blood Pressure 119/51 L 124/70 Pulse Oximetry 100 100 08/19/21 17:57 08/19/21 20:10 08/19/21 20:15 Temperature 36.8 C Pulse Rate 68 Respiratory Rate 16 Blood
== END 2021-08-20 12:32 | disposition home or self-care (01) ==
LOC: ANHED 15:27 → ANH2MED 15:41
PROVIDERS: Nurse Practitioner; Physician Assistant; Admitting Provider Internal Medicine; Emergency Provider Emergency Medicine; PCP Family Medicine; Visit Provider Nurse Practitioner
DX: I63.9 Cerebral infarction, unspecified (principal); M62.81 Muscle weakness (generalized); I12.9 Hypertensive chronic kidney disease with stage 1 through stage 4 chronic kidney disease, or unspecified chronic kidney disease; E11.22 Type 2 diabetes mellitus with diabetic chronic kidney disease; N18.30 Chronic kidney disease, stage 3 unspecified; E78.2 Mixed hyperlipidemia; E89.0 Postprocedural hypothyroidism; E55.9 Vitamin D deficiency, unspecified; I35.1 Nonrheumatic aortic (valve) insufficiency; E66.01 Morbid (severe) obesity due to excess calories; Z68.41 Body mass index [BMI] 40.0-44.9, adult; Z79.899 Other long term (current) drug therapy; Z79.84 Long term (current) use of oral hypoglycemic drugs
CPT/HCPCS: 36415; 70496; 70498; 71045; 80048; 80053; 82607; 82728; 82746; 82948; 83036; 83605; 83735; 84443; 84484; 85025; 85027; 85610; 85730; 86140; 93005; 93880; 96374; 99285; A9270; C8929; G0378; Q9957; Q9967

== ENCOUNTER → 2021-10-29 07:41 | Outpatient (CLI) | payer MEDICARE, SELFPAY ==
--- NOTE | ~2021-10-29 | MM_ITS ---
EXAMINATION: MM diagnostic shelly BI w simona HISTORY: Follow-up breast calcifications TECHNIQUE: Additional 3-D tomosynthesis images of the breasts were performed and synthetic 2-D images were generated. CAD analysis was submitted and interpreted. COMPARISON: Comparison to multiple prior studies sequentially, with oldest reviewed study dated 02/16. BREAST PARENCHYMAL COMPOSITION: Breast composed of scattered areas of fibroglandular density FINDINGS: No significant change to punctate bilateral breast calcifications which have a relatively m onomorphic appearance, likely benign. No new masses or architectural distortion. No skin thickening. IMPRESSION: 1. Stable bilateral mammogram. No significant change to likely benign breast calcifications. 2. Given one year of interval stability, recommend 12 month followup. BI-RADS category 3, probably benign findings. Reviewed, dictated and finalized at location A. IMPRESSION: 1. Stable bilateral mammogram. No significant change to likely benign breast ca lcifications. 2. Given one year of interval stability, recommend 12 month followup. BI-RADS category 3, probably benign findings.
== END ==
PROVIDERS: PCP Family Medicine; Visit Provider Nurse Practitioner Gerontology
DX: R92.8 Other abnormal and inconclusive findings on diagnostic imaging of breast (principal)
CPT/HCPCS: 77062; 77066; G0279

== ENCOUNTER → 2023-05-14 12:14 | Outpatient (CLI) | payer MEDICARE, SELFPAY ==
--- NOTE | ~2023-05-14 | MM_ITS ---
EXAMINATION: MM screening shelly BI w simona HISTORY: Screening TECHNIQUE: Craniocaudal and mediolateral oblique 3-D tomosynthesis images were obtained and synthetic 2-D images were generated. CAD analysis was submitted and interpreted. COMPARISON: Comparison to multiple prior studies sequentially, with oldest reviewed study dated 02/16. BREAST PARENCHYMAL COMPOSITION: There are scattered areas of fibroglandular density. FINDINGS: There is no evidence of suspicious mass, calcification, or architectural distortion to sugg est malignancy in either breast. There has been no suspicious interval change. IMPRESSION: 1. No mammographic evidence of malignancy. 2. Recommend routine screening mammography in one year. BI-RADS Category 1: Negative Reviewed, dictated and finalized at location A. CORONARY CARE UNIT
== END ==
PROVIDERS: PCP Physician Assistant; Visit Provider Nurse Practitioner Gerontology
DX: Z12.31 Encounter for screening mammogram for malignant neoplasm of breast (principal)
CPT/HCPCS: 77063; 77067

== ENCOUNTER 2023-09-28 09:13 | Outpatient (CLI) | payer MEDICARE, SELFPAY ==
--- NOTE | 2023-09-28 | ECHO_ITS ---
Patient Info Name: Mery Gutierrez Age: 68 years : 1955 Gender: Female Ht: 69 in Wt: 278 lbs BSA: 2.54 m2 HR: 71 bpm BP: 126 / 73 mmHg Technical Quality: Fair Exam Date: 09/28/2023 10:01 AM Exam Location: Echo Lab Patient Status: Outpatient Admit Date: 09/28/2023 Staff Ordering Physician: Yesica Carty MD Home Health Care Worker: Mansi Kaiser RDCS Attending Provider: Yesica Carty MD Referring Physician: Machelle BLACK; Exam Type: CA echo doppler color flow Study Info Indications I35.1 - Nonrheumatic aortic (valve) insufficiency I34.1 - Nonrheumatic mitral (valve) prolapse Complete two-dimensional, color flow and Doppler transthoracic echocardiogram is performed. Summary 1. Complete two-dimensional, color flow and Doppler transthoracic echocardiogram is performed. 2. Left ventricular chamber dimension is normal. 3. Left ventricular systolic function is normal, estimated at 60-65%. 4. The left ventricular diastolic function is grade I diastolic dysfunction. 5. E/e' 14 is mildly elevated. 6. Global longitudinal strain is normal at -18.6%. 7. Left atrial chamber dimension is mildly enlarged. 8. There is mild aortic valve sclerosis. 9. There is mild to moderate aortic valve regurgitation. 10. The mitral valve has severely calcified leaflets and moderately calcified annulus. 11. No pulmonary hypertension, estimated pulmonary arterial systolic pressure is 31 mmHg. Left Ventricle E/e' 14 is mildly elevated. Global longitudinal strain is normal at -18.6%. Left ventricular chamber dimension is normal. Left ventricular systolic function is normal, estimated at 60-65%. The left ventricular diastolic function is grade I diastolic dysfunction. Right Ventricle Right ventricular systolic function is normal and with normal TAPSE 1.8 cm. Right ventricular chamber dimension is normal. Left Atria Left atrial chamber dimension is mildly enlarged. Right Atria Right atrial chamber dimension is normal. Aortic Valve The aortic valve is trileaflet. There is mild aortic valve sclerosis. There is no aortic valve stenosis. There is mild to moderate aortic valve regurgitation. Pulmonic Valve There is no pulmonic regurgitation. Mitral Valve The mitral valve has severely calcified leaflets and moderately calcified annulus. There is no mitral valve stenosis. There is no mitral valve regurgitation. Tricuspid Valve There is no tricuspid valve regurgitation. No pulmonary hypertension, estimated pulmonary arterial systolic pressure is 31 mmHg. Pericardium/Pleural There is no pericardial effusion. Inferior Vena Cava Normal inferior vena cava with >50% collapse upon inspiration consistent with normal right atrial pressure, 5 mmHg. Aorta The aortic root size at the sinus of Valsalva is normal. Left Ventricular Outflow Tract Name Value Normal LVOT 2D LVOT Diameter 2.0 cm LVOT Doppler LVOT Peak Gradient 5 mmHg LVOT Mean Gradient 3 mmHg LVOT VTI 24 cm LVOT VTI/AV VTI Ratio 0.8 LVOT Stroke Volume 73 ml LVOT CO
== END 2023-09-28 09:14 | disposition home or self-care (01) ==
LOC: ANHCARD 09:14
PROVIDERS: PCP Family Medicine; Visit Provider Family Medicine
DX: I34.1 Nonrheumatic mitral (valve) prolapse (principal); I51.7 Cardiomegaly; I35.8 Other nonrheumatic aortic valve disorders
CPT/HCPCS: 93306

== ENCOUNTER 2024-05-30 09:55 | Emergency (ER) | payer MEDICARE, SELFPAY ==
[2024-05-30] VITALS (21 sets, daily range): BP systolic 111–134; BP diastolic 40–76; PULSE 74–115; RESP 14–25; TEMP 36.4–36.7; O2SAT 94–100
--- NOTE | ~2024-05-30 | XR_ITS ---
EXAMINATION: XR chest 2V DATE: 05/30/2024 11:01 INDICATION: Atrial fibrillation. TECHNIQUE: Frontal and lateral views of the chest were obtained. COMPARISON: Chest single view 08/17/2021 FINDINGS: There is mild atelectasis at left lung base. No pleural effusion or pneumothorax. The heart size is normal. There is an electronic implant in left anterior chest wall. IMPRESSION: 1. Mild atelectasis at left lung base. Reviewed, dictated and finalized at location A. GATIONIST
--- NOTE | 2024-05-30 10:04 | ECG_ITS ---
Test Date: 2024-05-30 10:17:01 Measurements Intervals Artemas Rate: 125 P: 0 ID: 0 QRS: -6 QRSD: 86 T: 43 QT: 330 QTc: 477 Interpretive Statements ATRIAL FIBRILLATION WITH RAPID VENTRICULAR RESPONSE LEFT VENTRICULAR HYPERTROPHY WITH ST-T CHANGE NONSPECIFIC ST & T-WAVE ABNORMALITY- ANTEROLAT/INF LEADS BASELINE ARTIFACT- I, II, III, AVR, AVL, AVF ABNORMAL ECG No previous ECG available for comparison Electronically Signed On 05-30-2024 10:42:54 [employer]IER PAYMENTS RECEIVED by Benjamin Davis D.O.
[2024-05-30 10:38] LABS: Basophils Absolute Auto 0.1 K/mm3 (0.0-0.1); Basophils Percent Auto 0.7 % (0.2-1.2); Eosinophils Absolute Auto 0.2 K/mm3 (0-0.3); Eosinophils Percent Auto 2.6 % (0-4.4); Hematocrit 36.6 % (37.0-47.0); Hemoglobin 12.2 g/dL (12.0-15.0); Immature Granulocyte Absolute 0.03 K/mm3 (0.00-0.031); Immature Granulocyte Percent A 0.3 % (0-0.5); Lymphocytes Absolute Auto 2.89 K/mm3 (0.9-3.2); Lymphocytes Percent Auto 30.8 % (18.3-44.2); Mean Corpuscular HGB Conc 33.3 g/dl (32-36); Mean Corpuscular Hemoglobin 29.9 pg (26-34); Mean Corpuscular Volume 89.7 fl (80-100); Mean Platelet Volume 10.5 fl (7.4-10.4); Monocytes Absolute Auto 0.7 K/mm3 (0.1-0.6); Monocytes Percent Auto 7.9 % (2.6-8.5); Neutrophils Absolute Auto 5.4 K/mm3 (1.3-6.7); Neutrophils Percent Auto 57.7 % (45.5-73.1); Platelet Count Result 244 k/mm3 (150-375); Red Blood Count 4.08 M/mm3 (4.2-5.4); White Blood Count 9.4 K/mm3 (4.5-10.0)
[2024-05-30] MEDS: ASPIRIN 81 MG CHEWABLE TABLET 324 MG PO (10:42)
[2024-05-30 10:53] LABS: Alanine Aminotransferase 13 U/L (6-35); Albumin Level 4.1 g/dL (3.5-5.1); Alkaline Phosphatase 63 U/L (38-126); Anion Gap 10 mmol/L (4-12); Aspartate Amino Transferase 20 U/L (14-36); Bilirubin,Total 0.8 mg/dL (0.2-1.3); Blood Urea Nitrogen 14 mg/dL (7-17); Calcium 9.2 mg/dL (8.4-10.2); Carbon Dioxide 23 mmol/L (22-30); Chloride 95 mmol/L (98-107); Estimated CRCL calculation 52 ml/min; Estimated Glomerular Filt Rate 44; Glucose 128 mg/dL (65-110); Lipase 122 U/L (23-300); Potassium 3.8 mmol/L (3.4-5.0); Sodium 128 mmol/L (137-145)
[2024-05-30 10:58] LABS: INR 1.1; Prothrombin Time 14.6 Seconds (11.1-14.7)
[2024-05-30 11:00] LABS: Troponin I < 0.012 ng/mL (0.000-0.034)
--- NOTE | 2024-05-30 12:13 | ED.ARRPALP ---
HPI - Arrhythmia/Palpitations General Chief Complaint: Arrhythmia/Palpitations Stated Complaint: afib Time Seen by Provider: 05/30/24 11:58 History of Present Illness HPI narrative: 69 Year old female presenting with new onset AFib. Patient states that she went to see her PCP this morning for a well visit. She was found to have a heart rate in the 120s. EKG confirmed atrial fibrillation. She was advised to come here for rate control. Upon my evaluation, her rate is in the 70s to 80s with a normal blood pressure. She really denies significant complaints to me. States that she has had some decreased appetite lately and she will sometimes have palpitations when she walks. States that these go away when she sits down. She denies any chest pain or shortness of breath. No leg swelling. Currently has no complaints. Related Data Home Medications Medication Instructions Recorded Confirmed aspirin 81 mg tablet,delayed 81 mg PO DAILY 10/20/22 05/30/24 release Allergies Allergy/AdvReac Type Severity Reaction Status Date / Time cephalexin AdvReac Intermediate Nausea and Verified 05/30/24 12:15 Vomiting and Diarrhea Review of Systems Review of Systems: All systems reviewed & are unremarkable except as noted in HPI and below PMFSH Past Medical History Medical History Abnormal mammogram of right breast Acquired hypothyroidism Acute right-sided muscle weakness Bilateral cataracts BMI 40.0-44.9, adult BMI greater than 40 Body mass index (BMI) of 40.1 to 44.9 in adult Brachial neuritis of both upper extremities Breast cancer screening Chronic kidney disease, stage 3 (moderate) CVA (cerebral vascular accident) Degenerative joint disease of knee Essential (primary) hypertension History of atrial fibrillation History of radioactive iodine thyroid ablation Hypersomnia Mixed hyperlipidemia Morbid obesity Pain, joint, knee, left TIA (transient ischemic attack) Tinea pedis of left foot 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 She is a lifelong nonsmoker. She does not use any alcohol marijuana or illicit drugs. She is worked in a grocery store. Her is a durable power attorney recruiter for healthcare. Code status full code. Smoking status: Never smoker Second hand tobacco smoke exposure: No Alcohol intake: never Substance use: never Substance use type: does not use Do You Feel Safe in your Home?: Yes Lack of Transportation: No Lack of Food: Never True Current Housing: I Have Housing Concerned About Future Housing: No Difficulty Paying Gas/Electric Bills: No Difficulty Paying for Meds: No Currently Unemployed: YES Education: Decline to Answer Difficulty w/ Childcare or Family Care: No Living arrangements: with family Occupation/Education: retired Gender identity (if verbalized by the patient): Female Sexual Orientation (if Verbalized by the Patient): Straight or Heterosexual Spiritual care concerns: No Exam Narrative: GENERAL: Well-appearing, in no acute distress, pleasant cooperative HEAD: Normocephalic, atraumatic. EYES: PERRLA and EOMI. ENT: Mucous membranes moist. NECK: Supple. CHEST: Clear to auscultation. No respiratory distress. HEART: Irregularly irregular rhythm with a rate in the 80s ABDOMEN: Soft, nontender, nondistended EXTREMITIES: No edema. SKIN: Warm, dry, no rash. NEURO: Alert and oriented x3. PSYCH: Normal mood and affect. Course Vital Signs Vital signs: Vital Signs Temperature 97.6 F 05/30/24 09:58 Pulse Rate 112 H 05/30/24 09:58 Respiratory Rate 18 05/30/24 09:58 Blood Pressure 134/76 05/30/24 09:58 Pulse Oximetry 100 05/30/24 09:58 Temperature 98.0 F 05/30/24 11:27 Pulse Rate 83 05/30/24 13:02 Respiratory Rate 19 05/30/24 13:02 Blood Pressure 115/66 05/30/24 13:02 Pulse Oximetry 100 05/30/24 13:02 MDM - Arrhythmia/Palpitations MDM Narrative Medical decision making narrative: 69-year-old female presenting from her PCPs office with new onset AFib. On arrival, she is tachycardic in the 110s to 120s. EKG per my interpretation shows AFib with RVR. Blood work appears to be at baseline. Mild hyponatremia that appears chronic. Stable CKD with a creatinine of 1.2. Troponin undetectable x2. By the time I evaluated the patient, her heart rate has naturally come down to the 70s and 80s. She has no complaints to me. She would prefer to go home which I think is reasonable. Spoke with cardiology who recommends starting 25 mgs Toprol daily as well as Eliquis as her chads Vasc score is greater than 4. Will get her her 1st doses here and recommend close cardiology follow-up. She is agreeable this plan. Differential Diagnosis Differential diagnosis: Likely palpitations, sinus tachycardia, artial fibrillation and artial flutter Medical Records Attestation: I reviewed the patient's medical records. Lab Data Attestation: I reviewed the patient's lab results. 05/30/24 10:32 05/30/24 10:32 Labs: Lab Results 05/30/24 05/30/24 Range/Units 10:32 13:24 WBC 9.4 (4.5-10.0) K/mm3 RBC 4.08 L (4.2-5.4) M/mm3 Hgb 12.2 (12.0-15.0) g/dL Hct 36.6 L (37.0-47.0) % MCV 89.7 (80-100) fl MCH 29.9 (26-34) pg MCHC 33.3 (32-36) g/dl RDW 13.0 (11.5-14.5) % Plt Count 244 (150-375) k/mm3 MPV 10.5 H (7.4-10.4) fl Immature Gran % (Auto) 0.3 (0-0.5) % Neut % (Auto) 57.7 (45.5-73.1) % Lymph % (Auto) 30.8 (18.3-44.2) % [place] % (Auto) 7.9 (2.6-8.5) % Eos % (Auto) 2.6 (0-4.4) % Baso % (Auto) 0.7 (0.2-1.2) % Lymph # (Auto) 2.89 (0.9-3.2) K/mm3 [place] # (Auto) 0.7 H (0.1-0.6) K/mm3 Eos # (Auto) 0.2 (0-0.3) K/mm3 Baso # (Auto) 0.1 (0.0-0.1) K/mm3 Abs Immat Gran (auto) 0.03 (0.00-0.031) K/mm3 Absolute Neuts (auto) 5.4 (1.3-6.7) K/mm3 Absolute Nucleated RBC 0.000 (0.0-0.012) K/mm3 Nucleated RBC % 0.0 (0.0-0.2) % PT 14.6 (11.1-14.7) Seconds INR 1.1 APTT 30.0 (22.3-36.8) Seconds Sodium 128 L (137-145) mmol/L Potassium 3.8 (3.4-5.0) mmol/L Chloride 95 L (98-107) mmol/L Carbon Dioxide 23 (22-30) mmol/L Anion Gap 10 (4-12) mmol/L BUN 14 D (7-17) mg/dL Creatinine 1.20 H (0.7-1.0) mg/dL Estim Creat Clear Calc 52 ml/min Estimated GFR 44 L (59 - ) Glucose 128 H (65-110) mg/dL Calcium 9.2 (8.4-10.2) mg/dL Total Bilirubin 0.8 (0.2-1.3) mg/dL AST 20 (14-36) U/L ALT 13 (6-35) U/L Alkaline Phosphatase 63 (38-126) U/L Troponin I < 0.012 < 0.012 (0.000-0.034) ng/mL Total Protein 7.0 (6.3-8.2) g/dL Albumin 4.1 (3.5-5.1) g/dL Lipase 122 (23-300) U/L Imaging Data Radiologist's impression: ITS Impressions Chest X-Ray 05/30/24 11:02 IMPRESSION: 1. Mild atelectasis at left lung base. Critical Care Time Critical Care Time Critical Care Time: No Discharge Plan Discharge Clinical Impression: New onset atrial fibrillation Patient Disposition: Home, Self-Care Condition: Stable Instructions: Antibiotic Form, A-fib (Atrial Fibrillation) (ED) Additional Instructions: We have started you on 2 new medications for new onset AFib. Please follow-up closely with cardiology at the number below as well as your PCP. If your symptoms worsen or other concerning symptoms arise, please return to the ER. Prescriptions: New metoprolol succinate [Toprol XL] 25 mg tablet extended release 24 hr 25 mg PO DAILY Qty: 20 0RF Eliquis 5 mg tablet 5 mg PO BID Qty: 30 0RF No Action aspirin 81 mg tablet,delayed release (DR/EC) 81 mg PO DAILY ketoconazole 2 % cream 1 applic TOPICAL BID PRN (Reason: Rash) Qty: 60 1RF triamcinolone acetonide 0.1 % cream 1 applic topical BID Qty: 30 0RF celecoxib [Celebrex] 200 mg capsule 200 mg PO BID Qty: 90 0RF levothyroxine 137 mcg tablet 137 mcg PO DAILY Qty: 90 2RF omeprazole 20 mg capsule,delayed release(DR/EC) 20 mg PO DAILY Qty: 90 1RF verapamil 120 mg capsule,ext rel. pellets 24 hr 120 mg PO HS Qty: 100 2RF Trulicity 3 mg/0.5 mL pen injector See Rx Instructions .ROUTE .COMPLEX Qty: 4 2RF Dose Instruction: INECT 3 MG SUBCUTANEOUSLY WEEKLY Rx Instructions: INECT 3 MG SUBCUTANEOUSLY WEEKLY (DME) OneTouch Verio test strips Strip See Rx Instructions .Route Qty: 100 6RF Rx Instructions: As directed to check glucose once daily irbesartan-hydrochlorothiazide 300-12.5 mg tablet See Rx Instructions .ROUTE .COMPLEX Qty: 90 1RF Dose Instruction: Take 1 tablet by mouth once daily Rx Instructions: Take 1 tablet by mouth once daily metformin 500 mg tablet extended release 24 hr See Rx Instructions .ROUTE .COMPLEX Qty: 90 1RF Dose Instruction: TAKE 1 TABLET BY MOUTH DAILY Rx Instructions: TAKE 1 TABLET BY MOUTH DAILY atorvastatin 10 mg tablet See Rx Instructions .ROUTE .COMPLEX Qty: 90 1RF Dose Instruction: Take 1 tablet by mouth once daily Rx Instructions: Take 1 tablet by mouth once daily Follow-up/Referrals: Benjamin Davis DO [Physician] - Yesica Carty MD [Primary Care Provider] -
[2024-05-30] MEDS: METOPROLOL SUCCINATE EXT REL 25 MG TABCR PO (13:00)
[2024-05-30] MEDS: APIXABAN 5 MG TABLET PO (13:00)
[2024-05-30 13:59] LABS: Troponin I < 0.012 ng/mL (0.000-0.034)
== END 2024-05-30 14:15 | disposition home or self-care (01) ==
PROVIDERS: Emergency Medicine; Emergency Provider Emergency Medicine; PCP Family Medicine
DX: I48.91 Unspecified atrial fibrillation (principal); E03.9 Hypothyroidism, unspecified; I12.9 Hypertensive chronic kidney disease with stage 1 through stage 4 chronic kidney disease, or unspecified chronic kidney disease; E11.22 Type 2 diabetes mellitus with diabetic chronic kidney disease; N18.30 Chronic kidney disease, stage 3 unspecified; Z86.73 Personal history of transient ischemic attack (TIA), and cerebral infarction without residual deficits; E66.9 Obesity, unspecified; Z68.39 Body mass index [BMI] 39.0-39.9, adult
CPT/HCPCS: 36415; 71046; 80053; 83690; 84484; 85025; 85610; 85730; 93005; 99284; A9270

== ENCOUNTER 2024-06-20 09:55 | Outpatient (CLI) | payer MEDICARE, SELFPAY ==
[2024-06-20 10:33] LABS: Basophils Absolute Auto 0.1 K/mm3 (0.0-0.1); Basophils Percent Auto 0.9 % (0.2-1.2); Eosinophils Absolute Auto 0.1 K/mm3 (0-0.3); Eosinophils Percent Auto 1.2 % (0-4.4); Hematocrit 39.7 % (37.0-47.0); Hemoglobin 13.9 g/dL (12.0-15.0); Immature Granulocyte Absolute 0.05 K/mm3 (0.00-0.031); Immature Granulocyte Percent A 0.4 % (0-0.5); Lymphocytes Absolute Auto 1.91 K/mm3 (0.9-3.2); Lymphocytes Percent Auto 16.2 % (18.3-44.2); Mean Corpuscular Hemoglobin 30.2 pg (26-34); Mean Corpuscular Volume 86.1 fl (80-100); Mean Platelet Volume 10.7 fl (7.4-10.4); Monocytes Absolute Auto 0.8 K/mm3 (0.1-0.6); Monocytes Percent Auto 7.1 % (2.6-8.5); Neutrophils Absolute Auto 8.7 K/mm3 (1.3-6.7); Neutrophils Percent Auto 74.2 % (45.5-73.1); Platelet Count Result 401 k/mm3 (150-375); Red Blood Count 4.61 M/mm3 (4.2-5.4); White Blood Count 11.8 K/mm3 (4.5-10.0)
[2024-06-20 10:43] LABS: Alanine Aminotransferase 20 U/L (6-35); Albumin Level 4.4 g/dL (3.5-5.1); Alkaline Phosphatase 81 U/L (38-126); Anion Gap 10 mmol/L (4-12); Aspartate Amino Transferase 40 U/L (14-36); Bilirubin,Total 1.1 mg/dL (0.2-1.3); Blood Urea Nitrogen 16 mg/dL (7-17); Calcium 9.4 mg/dL (8.4-10.2); Carbon Dioxide 21 mmol/L (22-30); Chloride 91 mmol/L (98-107); Estimated Glomerular Filt Rate 30; Glucose 158 mg/dL (65-110); Potassium 3.4 mmol/L (3.4-5.0); Sodium 122 mmol/L (137-145)
[2024-06-20 11:41] LABS: Add Urine Microscopic? YES; Appearance Urine Clear (Clear); Bacteria Urine 4+ /hpf; Bilirubin Urine Negative (Negative); Blood Urine Negative (Negative); Color Urine Yellow (Yellow); Glucose Urine UA Negative (Negative); Ketones Urine Negative (Negative); Leukocyte Esterase Ur 2+ LEU/UL (Negative); Nitrate Urine Positive (Negative); Non Pathogenic Casts 0-2; Protein Urine Negative (Negative); RBC Urine 0-2 /hpf (0-2); Specific Grav Ur 1.007 (1.001-1.035); Squamous Epithelial Cell Urine Occasional /hpf (Few); Urobilinogen Urine 0.2 mg/dL (<2.0); WBC Urine 21-50 /hpf (0-3)
== END 2024-06-20 09:56 | disposition home or self-care (01) ==
PROVIDERS: PCP Family Medicine; Visit Provider Physician Assistant
DX: R42 Dizziness and giddiness (principal); R53.1 Weakness
CPT/HCPCS: 36415; 80053; 81001; 85025; 87077; 87086; 87186

== ENCOUNTER 2024-06-20 11:40 | Emergency (ER) | payer MEDICARE, SELFPAY ==
[2024-06-20] VITALS (25 sets, daily range): BP systolic 90–124; BP diastolic 45–86; PULSE 56–65; RESP 7–20; O2SAT 98–100
--- NOTE | ~2024-06-20 | CT_ITS ---
CT brain wo con Ordering provider: Lobo Parekh MD History: 69 years Female with . minor head injury . Comparison: None. Technique: CT of the head without contrast. Radiation reduction technique utilized. The dose-length product was 756.67 mGy-cm. FINDINGS: BRAIN PARENCHYMA AND CSF SPACES: Mild leukoaraiosis and diffuse cortical atrophy. Mild atheromatous d isease. Encephalomalacia in the right frontoparietal area No midline shift, mass effect or hemorrhage . The brain parenchyma and CSF spaces are otherwise normal. VISUALIZED PARANASAL SINUSES: Well aerated. MASTOIDS: Well aerated. BONES: The bones appear intact. By posterior arch of C1. SOFT TISSUES: Visualized nasopharynx is normal. Superficial soft tissues are normal. IMPRESSION: No acute intracranial findings. Reviewed, dictated and finalized at location A. T TOUR GUIDE
--- NOTE | ~2024-06-20 | CT_ITS ---
CT facial bones wo con Ordering provider: Lobo Parekh MD History: . facial trauma . Comparison: None. Technique: Thin slice axial CT of the facial bones was performed without contrast. Coronal and sagit simon reformatted images were also obtained. . Automated exposure control and iterative reconstruction technique were employed. The dose-length product was 312.21 mGy-cm. FINDINGS: PARANASAL SINUSES: Well aerated. Right middle turbinate alejandra bullosa. BONES: No facial fracture including no nasal bone fracture. ORBITS AND SUPERFICIAL SOFT TISSUES: The optic globes and orbits are normal. The superficial soft tis sues are normal. VISUALIZED MASTOIDS: Well aerated. LIMITED VISUALIZED BRAIN PARENCHYMA: Normal. IMPRESSION: No facial fracture. Reviewed, dictated and finalized at location A. IDER RELATIONS REPRESENTATIVE IMPRESSION: No facial fracture.
[2024-06-20] MEDS: SODIUM CHLORIDE 0.9% IV 1,000 ML 999 ML IV CONT (12:54)
--- NOTE | 2024-06-20 13:08 | ED.GENADULT ---
HPI - General Adult General Chief complaint: Recheck/Abnormal Lab/Rx Stated complaint: sent by PMD for hydration/low sodium Time Seen by Provider: 06/20/24 12:05 History of Present Illness HPI narrative: Patient is a 69-year-old female who presents ER with low sodium. Blood work this morning showed sodium of 122. Previous blood work shows her baseline is around 128. Patient reports she has had a 15 lb weight loss over last 2-3 weeks. She had been on a cruise and developed nausea. She had an episode of syncope while on a motorized cart. She has pain over her nose bruising to her forehead and to her left arm. Patient is on Eliquis for recently diagnosed atrial fibrillation. She maintained she still has mild nausea. No fevers or chills or sweats. No change in vision or hearing. No significant headache. Related Data Home Medications ?Medication ?Instructions ?Recorded ?Confirmed ?Last Taken ?Type aspirin 81 mg tablet,delayed 81 mg PO DAILY 10/20/22 06/20/24 Unknown History release Allergies Allergy/AdvReac Type Severity Reaction Status Date / Time cephalexin AdvReac Intermediate Nausea and Verified 06/20/24 11:56 Vomiting and Diarrhea Review of Systems Review of Systems: All systems reviewed & are unremarkable except as noted in HPI and below Constitutional: Constitutional: Reports no additional constitutional complaints ENT: Reports system reviewed and no additional complaints, except as documented Cardiovascular: Cardiovascular: Reports no additional cardiovascular complaints Respiratory: Respiratory: Reports no additional respiratory complaints Genitourinary: Genitourinary: Reports no additional female genitourinary complaints [facility] Past Medical History Medical History BMI 40.0-44.9, adult Breast cancer screening Abnormal mammogram of right breast Body mass index (BMI) of 40.1 to 44.9 in adult Brachial neuritis of both upper extremities TIA (transient ischemic attack) History of atrial fibrillation CVA (cerebral vascular accident) Acute right-sided muscle weakness Morbid obesity Bilateral cataracts Tinea pedis of left foot BMI greater than 40 Degenerative joint disease of knee Pain, joint, knee, left Acquired hypothyroidism Chronic kidney disease, stage 3 (moderate) Essential (primary) hypertension Hypersomnia Mixed hyperlipidemia 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, unspecified History of radioactive iodine thyroid ablation Surgical History Surgical History H/O cataract extraction History of arthroscopy of both shoulders Arthroplasty History of carpal tunnel release of both wrists ulnar nerve release as well History of hysterectomy History of cholecystectomy Family History Family History Sibling Diabetes mellitus Family history of cardiovascular disease, Onset Age: 62 Family history of malignant neoplasm Mother Hypertension Father Patient's father is Other Family history of arthritis Social History Social History Social History: and has 3 children. She is a lifelong nonsmoker. She does not use any alcohol marijuana or illicit drugs. She is worked in a grocery store. Her is a durable power energy attorney for healthcare. Code status full code. Smoking status: Never smoker Second hand tobacco smoke exposure: No Alcohol intake: never Substance use: never Substance use type: does not use Do You Feel Safe in your Home?: Yes Lack of Transportation: No Lack of Food: Never True Current Housing: I Have Housing Concerned About Future Housing: No Difficulty Paying Gas/Electric Bills: No Difficulty Paying for Meds: No Currently Unemployed: YES Education: Decline to Answer Difficulty w/ Childcare or Family Care: No Living arrangements: with family Occupation/Education: retired Gender identity (if verbalized by the patient): Female Sexual Orientation (if Verbalized by the Patient): Straight or Heterosexual Spiritual care concerns: No Exam Narrative: GENERAL: Well-appearing, morbidly obese, and in no acute distress. HEAD: Normocephalic, abrasion along the midline of the forehead and anterior scalp. ENT: Mucous membranes moist. Yellowed bruising over the bridge of the nose with tenderness, bruising beneath the eyes bilaterally. CHEST: Clear to auscultation. No respiratory distress. HEART: Regular rate and rhythm. Normal peripheral pulses. ABDOMEN: Soft, nontender, nondistended. EXTREMITIES: Normal range of motion. No edema. SKIN: Warm, dry, no rash. Ecchymosis left wrist and dorsum of hand. NEURO: Alert and oriented x3. PSYCH: Normal mood and affect. Course Course Emergency Course: I have independently reviewed the patient's lab work from earlier this morning. Sodium 122. Urinalysis with evidence of infection. Discharge home with cephalexin. Discussed with PCP office and we will also discontinue patient's irbesartan-HCTZ as this may be a cause/contributing factor to her hyponatremia. Patient verbalized understanding of treatment plan. Vital Signs Vital signs: Vital Signs Pulse Rate 65 06/20/24 11:50 Respiratory Rate 20 06/20/24 11:50 Blood Pressure 116/66 06/20/24 11:50 Pulse Oximetry 100 06/20/24 11:50 Oxygen Delivery Room Air 06/20/24 11:50 Pulse Rate 60 06/20/24 12:54 Respiratory Rate 20 06/20/24 12:54 Blood Pressure 111/46 L 06/20/24 12:54 Pulse Oximetry 100 06/20/24 12:54 Oxygen Delivery Room Air 06/20/24 11:50 Medical Decision Making Vital Signs Vital Signs: Vital Signs Pulse Rate 65 06/20/24 11:50 Respiratory Rate 20 06/20/24 11:50 Blood Pressure 116/66 06/20/24 11:50 Pulse Oximetry 100 06/20/24 11:50 Oxygen Delivery Room Air 06/20/24 11:50 Pulse Rate 60 06/20/24 12:54 Respiratory Rate 20 06/20/24 12:54 Blood Pressure 111/46 L 06/20/24 12:54 Pulse Oximetry 100 06/20/24 12:54 Oxygen Delivery Room Air 06/20/24 11:50 Imaging Data Radiologist's impression: ITS Impressions Head CT 06/20/24 12:46 IMPRESSION: No acute intracranial findings. Face CT 06/20/24 12:51 IMPRESSION: No facial fracture. Discharge Plan Discharge Clinical Impression: Hyponatremia, Acute UTI Patient Disposition: Home, Self-Care Condition: Stable Instructions: Antibiotic Form, Urinary Tract Infection in Women (ED), Hyponatremia (ED) Additional Instructions: You should return to the emergency department if you develop severe nausea and vomiting and are unable to keep liquids down, if you develop severe back/flank or stomach pain, or if your symptoms are not clearly improving at home. Patient Language: Surinamese Prescriptions: Discontinued irbesartan-hydrochlorothiazide 300-12.5 mg tablet See Rx Instructions .ROUTE .COMPLEX Qty: 90 1RF Dose Instruction: Take 1 tablet by mouth once daily Rx Instructions: Take 1 tablet by mouth once daily No Action aspirin 81 mg tablet,delayed release (DR/EC) 81 mg PO DAILY ketoconazole 2 % cream 1 applic TOPICAL BID PRN (Reason: Rash) Qty: 60 1RF triamcinolone acetonide 0.1 % cream 1 applic topical BID Qty: 30 0RF levothyroxine 137 mcg tablet 137 mcg PO DAILY Qty: 90 2RF omeprazole 20 mg capsule,delayed release(DR/EC) 20 mg PO DAILY Qty: 90 1RF verapamil 120 mg capsule,ext rel. pellets 24 hr 120 mg PO HS Qty: 100 2RF Trulicity 3 mg/0.5 mL pen injector See Rx Instructions .ROUTE .COMPLEX Qty: 4 2RF Dose Instruction: INECT 3 MG SUBCUTANEOUSLY WEEKLY Rx Instructions: INECT 3 MG SUBCUTANEOUSLY WEEKLY (DME) OneTouch Verio test strips Strip See Rx Instructions .Route Qty: 100 6RF Rx Instructions: As directed to check glucose once daily metformin 500 mg tablet extended release 24 hr See Rx Instructions .ROUTE .COMPLEX Qty: 90 1RF Dose Instruction: TAKE 1 TABLET BY MOUTH DAILY Rx Instructions: TAKE 1 TABLET BY MOUTH DAILY atorvastatin 10 mg tablet See Rx Instructions .ROUTE .COMPLEX Qty: 90 1RF Dose Instruction: Take 1 tablet by mouth once daily Rx Instructions: Take 1 tablet by mouth once daily metoprolol succinate [Toprol XL] 25 mg tablet extended release 24 hr 25 mg PO DAILY Qty: 30 1RF Eliquis 5 mg tablet 5 mg PO BID Qty: 60 0RF Follow-up/Referrals: Yesica Carty MD [Primary Care Provider] - 1 Week
== END 2024-06-20 15:21 | disposition home or self-care (01) ==
PROVIDERS: Emergency Provider Emergency Medicine; PCP Family Medicine
DX: E87.1 Hypo-osmolality and hyponatremia (principal); N39.0 Urinary tract infection, site not specified; S00.83XA Contusion of other part of head, initial encounter; S60.212A Contusion of left wrist, initial encounter; S60.222A Contusion of left hand, initial encounter; I48.91 Unspecified atrial fibrillation; I12.9 Hypertensive chronic kidney disease with stage 1 through stage 4 chronic kidney disease, or unspecified chronic kidney disease; E11.22 Type 2 diabetes mellitus with diabetic chronic kidney disease; N18.30 Chronic kidney disease, stage 3 unspecified; E78.2 Mixed hyperlipidemia; E03.9 Hypothyroidism, unspecified; E66.01 Morbid (severe) obesity due to excess calories; Z68.37 Body mass index [BMI] 37.0-37.9, adult; E55.9 Vitamin D deficiency, unspecified; M17.12 Unilateral primary osteoarthritis, left knee; Z86.73 Personal history of transient ischemic attack (TIA), and cerebral infarction without residual deficits; Z90.49 Acquired absence of other specified parts of digestive tract; Z90.710 Acquired absence of both cervix and uterus; Z79.82 Long term (current) use of aspirin; Z79.01 Long term (current) use of anticoagulants; Z79.84 Long term (current) use of oral hypoglycemic drugs; Z79.899 Other long term (current) drug therapy; X58.XXXA Exposure to other specified factors, initial encounter
CPT/HCPCS: 70450; 70486; 96360; 99284; J7030

== ENCOUNTER 2024-08-09 14:51 | Outpatient (CLI) | payer MEDICARE, SELFPAY ==
--- NOTE | ~2024-08-09 | MM_ITS ---
EXAMINATION: MM screening shelly BI w simona HISTORY: Screening TECHNIQUE: Craniocaudal and mediolateral oblique 3-D tomosynthesis images were obtained and synthetic 2-D images were generated. CAD analysis was submitted and interpreted. COMPARISON: Comparison to multiple prior studies sequentially, with oldest reviewed study dated 11/2018. BREAST PARENCHYMAL COMPOSITION: Not dense: There are scattered areas of fibroglandular density. FINDINGS: Bilateral breast calcifications are not significantly changed from prior examinations. Ther e is no evidence of suspicious mass, calcification, or architectural distortion to suggest malignancy in either breast. There has been no suspicious interval change. IMPRESSION: 1. No mammographic evidence of malignancy. 2. Recommend routine screening mammography in one year. BI-RADS Category 2: Benign finding(s). Reviewed, dictated and finalized at location B. COPTER REPAIRER
== END 2024-08-09 14:52 | disposition home or self-care (01) ==
PROVIDERS: PCP Family Medicine; Visit Provider Physician Assistant
DX: Z12.31 Encounter for screening mammogram for malignant neoplasm of breast (principal); Z78.0 Asymptomatic menopausal state
CPT/HCPCS: 77063; 77067

== ENCOUNTER 2024-11-01 11:19 | Inpatient (IN) | payer MEDICARE, SELFPAY ==
[2024-11-01] VITALS (32 sets, daily range): BP systolic 105–161; BP diastolic 53–108; PULSE 96–138; RESP 8–23; TEMP 36.6–37.1; O2SAT 51–100; BMI 37.4
--- NOTE | ~2024-11-01 | XR_ITS ---
XR chest 1V portable Ordering provider: Xi Joseph History: 69 years Female with . SOB . Comparison: May 30, 2024 FINDINGS: MEDIASTINUM: The cardiac silhouette is moderately enlarged. Device projecting over the left hemithorax. Congestive anna. LUNGS: No infiltrates, effusions or pneumothorax. Minimal bilateral interstitial thickening. OTHER: No free air under the diaphragm. Degenerative changes of the spine. IMPRESSION: Cardiomegaly with cardiac decompensation and pulmonary edema are highly suggestive. Superimposed pneu monitis cannot be excluded Reviewed, dictated and finalized at location A. IMPRESSION: Cardiomegaly with cardiac decompensation and pulmonary edema are highly suggest amanda. Superimposed pneumonitis cannot be excluded
--- NOTE | 2024-11-01 11:21 | ECG_ITS ---
Test Date: 2024-11-01 11:28:22 Measurements Intervals [place] Rate: 127 P: 0 WI: 0 QRS: 6 QRSD: 90 T: 63 QT: 300 QTc: 438 Interpretive Statements ATRIAL FIBRILLATION WITH RAPID VENTRICULAR RESPONSE LEFT VENTRICULAR HYPERTROPHY WITH ST-T CHANGE NONSPECIFIC ST & T-WAVE ABNORMALITY- ANTERLATERAL LEADS ABNORMAL ECG Compared to ECG 05/30/2024 10:17:01 NO SIGNIFICANT CHANGE Electronically Signed On 11-01-2024 11:32:15 CDT by Benjamin Davis D.O.
[2024-11-01] MEDS: METOPROLOL TARTRATE INJ 5 MG/5 ML VIAL IV PUSH (12:29)
--- OUTSIDE RECORDS SUMMARY | 2024-11-01 12:44 | XMS_ITS | Continuity of Care Document ---
Author Organization [facility] Address [address] [facility] [address] [facility] [address] [place] [id number] Phone Care Team Providers Care Seam Checker Name Role Phone Lázaro Perdomo MD, FACS Unavailable Unavailab le Allergies, Adverse Reactions, Alerts Substance Reaction Status Criticality CEPHALEXIN MONOHYDRATE Active No In formation Medications Medication Instructions Dosage Effective Dates (start - stop) Status Comments Trulicity 0.75 mg/0.5 mL subcutaneous pen injector inject (0.75MG) by subcutaneous route every week 0.75 MG - Active Lipitor 10 mg tablet take 1 tablet by oral route every day 10 MG - Active losartan 100 mg-hydrochlorothiaz josephine 12.5 mg tablet take 1 tablet by oral route every day 1.00 tablet - Active verapamil 120 mg tablet take 1 tablet by oral route 3 times every day 120 MG - Active Celebrex 200 mg capsule take 1 capsule by oral route 2 times every day as needed 200 MG - Active Synthroid 137 mcg tablet take 1 tablet by oral route every day 137 MCG - Active Januvia 25 mg tablet take 1 tablet by oral route every day 25 MG - No Longer Active Procedures Procedure Date No Charge Optomap Fundus Photos No Charge Refraction Office/outpatient Visit, Est No Charge Refraction No Charge Optomap Fundus Photos 024 No Charge GDX Retina Office/outpatient Visit, Est Fundus Photography W/ Report Eye Exam & Treatment No Charge Optomap Fundus Photos 022 Eye Exam & Treatment No Charge Refraction Post-op Follow-up Visit Post-op Follow-up Visit Post-op Follow-up Visit Remove Cataract, Insert Lens IOLMaster-Professional No Charge Refraction Post-op Follow-up Visit Post-op Follow-up Visit Remove Cataract, Insert Lens IOLMaster-Professional IOLMaster-Technical No Charge Refraction No Charge Optomap Fundus Photos 021 SCODI, Retina No Charge Orbscan Office/outpatient Visit, New Eye Exam, New Patient Advance Directives Directive Yes / No Effective Date File Name Other Directive No N/A N/A WARNING:The information contained in this section is historical and is provided for information only and does not constitute a legal document or any assurance that the information is still accurate. Please verify the information with the sweeney of the legal document before using it for clinical purposes. Encounters Encounter Description Practice Location Reason(s) For Visit Diagnoses Date Provider Providers Copied on Encounter Office/outpa tient Visit, [facility], [address], [place], [place], [address], [place] tel:[phone] SEC Blay[place] ESCOBEDO Professional YAG PC (chief complaint) Presence of intraocular lens 4 Conor Sesay. [address], [address], [place], [place], [address], [place]. tel:[phone] Referring Provider: Jordy Woody, [address] [facility] [address] [address], [place], [address] . tel:[phone] Office/outpa tient Visit, [facility], [address], [place], [place], [address], [place] tel:[phone] SEC [place] Professional Follow up visit (chief complaint) Other secondary cataract, bilateralPrese nce of intraocular lensType 2 diabetes mellitus without complicationsD ry eye syndrome of bilateral lacrimal glands 4 Jose OD Jennie. [facility] [address], [address], [place], [place], [address], [place]. tel:[phone] Referring Provider: Jordy Woody, [address], [place], [address] . tel:[phone] [facility], [facility] [address], [place], [place], [address], [place] tel:[phone] SEC [place] Complete Exam (chief complaint) Type 2 diabetes mellitus without complicationsP resence of intraocular lensHistory of laser assisted in situ keratomileusis Drusen (degenerative) of macula, bilateral 3 Jose OD Jennie. [facility] [address], [address], [place], [place], [address], [place]. tel:[phone] Referring Provider: Jordy Woody, [address], [place], [address] . tel:[phone] [facility], [facility] [address], [place], [place], [address], [place] tel:[phone] [place] office visit (chief complaint) Type 2 diabetes mellitus without complicationsP resence of intraocular lensHistory of laser assisted in situ keratomileusis 2 Justo Spence. [address], [address], [place], [place], [address], [place]. tel:[phone] Referring Provider: Jordy Woody, [address], [place], [address] . tel:[phone] [facility], [facility] [address], [place], [place], [address], [place] tel:[phone] [place] 2 wk CE PO (06/19/21) (chief complaint) Post op visit 2 Jose OD Jennie. [address], [address], [place], [place], [address], . tel:[phone] Referring Provider: Jordy Woody, [address], [place], [address] . tel:[phone] [facility], [address], [place], [place], [address], tel:[phone] [place] post op (chief complaint) Post op visit 1 Jose OD Jennie. [facility] [address], [address], [place], [place], [address], . tel:[phone] Referring Provider: Jordy Woody, [address], [place], [address] . tel:[phone] [facility], [address], [place], [place], [address], tel:[phone] [place] Professional 1 day CE PO (06/19/21) (chief complaint) Post op visit 1 Jose OD Jennie. [address], [address], [place], [place], [address], [place]. tel:[phone] Referring Provider: Jordy Woody, [address], [place], [address] . tel:[phone] [facility], [address], [place], [place], [address], tel:[phone] [facility] No Information 1 Justo Spence. [address], [address] [place], [address], [place]. tel:[phone] Referring Provider: Jordy Woody, [address], [place], [address] . tel:[phone] [facility], [address], [place], [place], [address], tel:[phone] SEC Blayne ESCOBEDO Professional No Information 1 Justo Spence. [address], [address], [place], [place], [address], . tel:[phone] Referring Provider: Jordy Woody, [address], [place], [address] . tel:[phone] [facility], [address], [place], [place], [address], tel:[phone] [place] 2 wk po PCIOL OS (05/27/21) (chief complaint) Post op visit 1 Jose OD Jennie. [facility] [address], [address], [place], [place], [address], [place]. tel:[phone] Referring Provider: Jordy Woody, [address], [place], [address] . tel:[phone] [facility], [address], [place], [place], [address], [place] tel:[phone] [place] 1 day CE PO (05/27/21) (chief complaint) Post op visit 1 Jose OD Jennie. [facility] [address], [address], [place], [place], [address], . tel:[phone] Referring Provider: Jordy Woody, [address], [place], [address] . tel:[phone] [facility], [address], [place], [place], [address], [place] tel:[phone] [facility] No Information 1 Justo Spence. [address] [facility] [address], [address], [place], [place], [address], . tel:[phone] Referring Provider: Jordy Woody, [address] [address], [place], [address] . tel:[phone] [facility], [address] [place] [address] [address], [place], [place], [address], [place] tel:[phone] SEC Blayne ESCOBEDO Professional No Information 1 Justo Spence. [address] [facility] [address], [address], [place], [place], [address], . tel:[phone] Referring Provider: Jordy Woody, [address] [facility] [address], [place], [address] . tel:[phone] Office/outpa tient Visit, [facility], [address] [place] [address] [address], [place], [place], [address], [place] tel:[phone] SEC [place] Professional Complete Exam (chief complaint) Age-related nuclear cataract, bilateralDruse n (degenerative) of macula, bilateralType 2 diabetes mellitus without complicationsH istory of laser assisted in situ keratomileusis Apr- 1 Justo Spence. [address] [facility], [address], [place], [place], [address], [place]. tel:[phone] Referring Provider: Jordy Woody, [address] [facility] [address], [place], [address] . tel:[phone] [facility], [address] [place] [address] [address], [place], [place], [address], [place] tel:[phone] [place] Professional Diabetic eye exam (chief complaint) Nuclear sclerosisDiabe bernadine 5 Gonzalez Becerril. [address] [facility], [address], [place], [place], [address], [place]. tel:[phone] Referring Provider: Jone Zapata, [address], [place], [address] . tel:[phone] Family History Family Member Type Diagnosis Age At Onset Sister Problem (finding) diabetes jarvis porter in first degree relative Payers Payer name Insurance type Covered republican ID Authorbassem moreau(s) [facility] Mdcr Adv CI [id number] Social History Type Description Quantity Date Captured Comments Alcohol Use Details No Caffeine Use Details No Tobacco Use Status Current non-smoker Smoking Status Never smoker Non-Smoking Tobacco Use Details : No Details Available : No Details Available Sex Female Chief Complaint And Reason For Visit From encounter dated '02/09/2024 12:45'. YAG PC (chief complaint). Description: The 68 year old patient presents for evaluation of YAG PC inthe right eye and left eye. Patient is NIDDM II, followed by PCP and last A1C was 6.5%. Patient states vision is overall doing well. Pt denies issues with reading, does well as long as she has OTC readers. Pt does not avoid night time driving but notices it's more difficult to see at night.Pt sees glare/halos around headlights at night while driving. Pt uses ATs PRN. Reason For Referral Reason For Referral No Information Plan Of Treatment Date Type Action Status Patient Education Learning About YAG Lase r Capsulotomy completed Patient Education Learning About Retinal Drusen completed Patient Education Type 2 Diabetes: Care I nstructions completed Patient Education Cataracts: Care Instruc tions completed History Of Present Illness Encounter Date Complaint History Of Prese nt Illness YAG PC The 68 year old patient presents for evaluation of YAG PC in the right eye and left eye. Patient is NIDDM II, followed by PCP and last A1C was 6.5%. Patient states vision is overall doing well. Pt denies issues with reading, does well as long as she has OTC readers. Pt does not avoid night time driving but notices it's more difficult to see at night. Pt sees glare/halos around headlights at night while driving. Pt uses ATs PRN. Follow up visit The 68 year old patient presents for evaluation of Follow up visit in the right eye and left eye. Pt states that starting about 3-4 months ago they noticed a pain in OU but more so in OS than OD, Pt states OU feels tender. Pt states that OU for distance seems blurry as well. Complete Exam The 67 year old patient presents for a complete Type II diabetic exam ou. Patient is pseudo ou. Patient has hx of Lasik ou. BS was 120 this am and last A1C was 6.9 and PCP treats DM. Patient denies any changes in vision ou. Patient sometimes wears OTC reading glasses. office visit The 66 year old patient presents for a 6 month IOL ou check. Patient is a Type II diabetic. Patient has hx of Lasik ou. Patient denies any changes in vision ou. Patient wears OTC reading glasses. 2 wk CE PO (06/19/21) The 66 yea r old female presents for evaluation of 1 month CE PO (06/19/21) in the right eye. Pt reports she has finished all CE PO gtts and isn't currently using any gtts, OU. Pt reports OD is doing fine and she can see better for DV since CE. post op The 66 year old female presents for a 1 week post op CE OD. Patient is using Pred, Vigamox and Ketorolac qid OD. Patient states OD is doing good. 1 day CE PO (06/19/21) The 66 ye ar old female presents for evaluation of 1 day CE PO (06/19/21) in the right eye. Pt reports she is using Vigamox QID OD, Pred QID OD, and Ketorolac QID OD. PO instructions were given, explained, and understood by pt. Pt reports OD is doing good and no pain or discomfort today. 2 wk po PCIOL OS (05/27/21) The 66 year old female presents for evaluation of 2 wk po PCIOL OS (05/27/21). Pt reports good comfort and vision OS. Pt reports taking Pred, Ketorolac, and Vigamox QID OS. Pt reports trouble driving ta night, she sees glare from oncoming headlights at night. Pt reports trouble seeing street signs and small print at near such as newspapers, books, and medicine bottles x many months OD. 1 day CE PO (05/27/21) The 66 ye ar old female presents for evaluation of 1 day CE PO (05/27/21) in the left eye. Pt reports she is using Vigamox QID OS, Pred QID OS, and Ketorolac QID OS. PO instructions were given, explained and understood by pt. Pt reports OS is doing fine and no pain or discomfort today. Complete Exam The 66 year old female presents for evaluation of Complete Exam in the right eye and left eye. Patient states she avoids driving at night due to glare with both eyes x years. Patient has some difficulty reading really small print with both eyes. Patient states if gas signs are to far away she has difficulty seeing the numbers with both eyes.. Patient is a Type 2 diab x 2 years, BS checked @ 150, a1c 7.4, and PCP treats her diab. Diabetic eye exam The 60 year ol d female presents for Complete Diabetes Exam. Pt was referred by Dr. Irlanda Sterling and was just told her blood sugar was high on 02/13/15. Pt does not check BS at home or take any DM medications currently. HX Lasik OU 1999 and beginning of Cataracts a few years ago. Pt has some problems with night driving. Functional Status Date Functional Assessmen t No Information Instructions Date Instruction Additional Infor rené Impression/Plan Related to Prese nce of intraocular lens Impression/Plan Impression/Plan Impression/Plan Impression/Plan Impression/Plan Impression/Plan Impression/Plan Impression/Plan Impression/Plan Nuclear sclerosis - Educational material given Related to Nuclear sclerosis - Diabetes no backgr ound retinopathy, no signs of neovascularization noted. Discussed ocular and systemic benefits of blood sugar control. Discussed cataracts with pt and treatment options. pt also understands at this time vision does not qualify to have CE with insurance coverage, instructed pt to return sooner if vision worsens. DM letter to Dr Sterling. Return to clinic in 1 year for complete diabetic exam or sooner with any problems. Related to See list of assessments above - Return in 1 year shantelle Roth M.D. for Complete Exam , Diabetic Eval Related to Nuclear sclerosis Assessments Type Assessment Date assessment Presence of intraocular lens Feb impression Presence of intraocular lens: Z9 6.1 Patient Care Teams Name Effective Dates (start - stop) Status Members No Information
--- OUTSIDE RECORDS SUMMARY | 2024-11-01 12:44 | XMS_ITS | Clinical Summary ---
Author Organization [employer] [facility] Address [address] [place] [address] [place] [address] Phone Care Team Providers Care Senior Medical Technologist Name Role Phone Unavailable Primary Care Provider Unavailabl e Allergies Active Allergy Reactions Criticality Noted Date Comments Cephalexin Nausea and Vomiting Low 03/13/2010 Medications LEVOTHYROXINE SODIUM (LEVOTHYROXINE ORAL) Take by mouth. Active VERAPAMIL HCL (VERAPAMIL ORAL) Take by mouth. 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 Gender Identity Not on file Sexual Orientation Not on file Last Filed Vital Signs Vital Sign Reading Time Taken Comments Blood Pressure 125/56 03/25/2010 12:15 PM CDT Pulse 89 03/25/2010 12:15 PM CDT Temperature 36.2 C (97.2 F) 03/25/2010 12:15 PM CDT Respiratory Rate 18 03/25/2010 12:15 PM CDT Oxygen Saturation - - Inhaled Oxygen Concentration - - Weight - - Height - - Body Mass Index - - Plan of Treatment Health Maintenance Due Date Last Done Comments DTAP/TDAP/TD VACCINES (1 - Tdap) 02/21/1972 BREAST CANCER SCREENING 1993 COLORECTAL SCREENING 1998 Colorectal Cancer Screening 1998 FIT-DNA Q 3 years 1998 FIT/FOBT Q 1 year 1998 Flex Sig/CT Colonography Q 5 years 1998 PNEUMOCOCCAL VACCINE 50+ YEARS (1 of 1 - PCV) 02/21/20 03 ZOSTER VACCINE (1 of 2) 2003 OSTEOPOROSIS SCREENING 2018 INFLUENZA VACCINE (#1) 2024 RSV VACCINE (60+ or ) (1 - 1-dose 75+ series) 02/21/2028 Insurance
--- OUTSIDE RECORDS SUMMARY | 2024-11-01 12:44 | XMS_ITS | CONTINUITY OF CARE DOCUMENT ---
Author Name chepe, chepe Address Unknown Organization [facility] Address [address] [place] [address] Phone [phone] Care Team Providers Care Collar Setter Overlock Name Role Phone Kristian Broderick DO Unavailable [phone] ASTHISH FARIAS MD Unavailable SATHISH FARIAS MD Unavailable [phone] PROBLEMS Condition Status Date Provider Notes Presence of implantable loop recorder active Rochelle White RN Reveal Linq - Me dtronic Stroke, crypotogenic active Rochelle White RN Hypothyroidism active Rochelle White RN Atrial fibrillation active Rochelle White RN Syncope active Rachele Jaimes ENCOUNTERS Date Type Provider Location Encounter Diagnosis - In-person encounter Office Visit Kristian Joseph [facility] VITAL SIGNS Date Observation Value Provider blood pressure, diastolic 80 mm[Hg] Lobito Cordoba'Valdo blood pressure, systolic 112 mm[Hg] Danitza Cordoba'Valdo pulse rate 62 /min Vanda O'Valdo oxygen saturation, oximetry 94 % Vanda O'Vadlo respiratory rate E&M 16 /min Vanda O'Valdo Body Mass Index (Ratio) 39.42 kg/m2 Kyler crooks O'Valdo weight E&M 267 [lb_av] Vanda O'Valdo height E&M 69 [in_i] Vanda O'Valdo ALLERGIES Allergy Name Onset Date Reaction Criticality Status KEFLEX High Criticality active HISTORY OF MEDICATION USE Medication Status Instructions Dates Provider Indications Com ments COZAAR 50 MG ORAL TABLET active once daily 2 Vanda Wyatt LISINOPRIL 10 MG ORAL TABLET completed ONE TAB. DAILY 7 - 2 Vanda Wyatt [facility] OMEPRAZOLE 20 MG ORAL TABLET DELAYED RELEASE active once daily 7 Stacy Linchandana LEVOTHYROXINE SODIUM 150 MCG ORAL TABLET active ONE TAB. DAILY 7 Stacy Linson ELIQUIS 5 MG ORAL TABLET active twice daily 7 Stacy Linson LIPITOR 10 MG ORAL TABLET active ONE TAB. DAILY 7 Stacy Dumontson SOCIAL HISTORY Date Observation Value Provider smoking status Never smoker Vanda Wyatt FAMILY HISTORY Family Member Condition Full Brother Family History of Co ronary Artery Disease: Mother Family History of Co ronary Artery Disease: INSURANCE PROVIDERS Payer name Policy type / Coverage type [place] red green party ID [id number] PAY [id number] TREATMENT PLAN Date Name Performer Cardiology/EP:unclea r etiol. cont to monitor with Reveal. on Eliquis for now. Kristian Mckinnonck DO Cardiology/EP:no episodes per Re veal checks Kristian Abdullahicock DO Cardiology/EP:no further episode s since last appt Kristian Abdullahicock DO Cardiology/EP Kristian Abdullahicock DO HISTORY OF PROCEDURES Procedure Date Procedure Name Provider Procedure Notes S tatus Loop Recorder Interrogation, Remote Kristian Providence DO INTERROGATION EVALUATION REMOTE </30 D ILR SYS completed ICM Interrogation, Remote (Tech) Kristian Providence DO INTERROGATION EVAL REMOTE </30 D TECH REVIEW completed Loop Recorder Interrogation, Remote Kristian [place] DO INTERROGATION EVALUATION REMOTE </30 D ILR SYS completed ICM Interrogation, Remote (Tech) Kristian Providence DO INTERROGATION EVAL REMOTE </30 D TECH REVIEW completed Loop Recorder Interrogation, Remote Kristian [place] DO INTERROGATION EVALUATION REMOTE </30 D ILR SYS completed ICM Interrogation, Remote (Tech) Kristian Providence DO INTERROGATION EVAL REMOTE </30 D TECH REVIEW completed Loop Recorder Interrogation, Remote Kristian [place] DO INTERROGATION EVALUATION REMOTE </30 D ILR SYS completed ICM Interrogation, Remote (Tech) Kristian Providence DO INTERROGATION EVAL REMOTE </30 D TECH REVIEW completed Loop Recorder Interrogation, Remote Kristian [place] DO INTERROGATION EVALUATION REMOTE </30 D ILR SYS completed ICM Interrogation, Remote (Tech) Kristian Providence DO INTERROGATION EVAL REMOTE </30 D TECH REVIEW completed Loop Recorder Interrogation, Remote Kristian Providence DO INTERROGATION EVALUATION REMOTE </30 D ILR SYS completed ICM Interrogation, Remote (Tech) Kristian Providence DO INTERROGATION EVAL REMOTE </30 D TECH REVIEW completed Loop Recorder Interrogation, Remote Kristian Providence DO INTERROGATION EVALUATION REMOTE </30 D ILR SYS completed ICM Interrogation, Remote (Tech) Kristian Providence DO INTERROGATION EVAL REMOTE </30 D TECH REVIEW completed Loop Recorder Interrogation, Remote Kristian Providence DO INTERROGATION EVALUATION REMOTE </30 D ILR SYS completed ICM Interrogation, Remote (Tech) Kristian Providence DO INTERROGATION EVAL REMOTE </30 D TECH REVIEW completed Loop Recorder Interrogation, Remote Kristian Providence DO INTERROGATION EVALUATION REMOTE </30 D ILR SYS completed ICM Interrogation, Remote (Tech) Kristian Providence DO INTERROGATION EVAL REMOTE </30 D TECH REVIEW completed Loop Recorder Interrogation, Remote Kristian [place] DO INTERROGATION EVALUATION REMOTE </30 D ILR SYS completed ICM Interrogation, Remote (Tech) Kristian Providence DO INTERROGATION EVAL REMOTE </30 D TECH REVIEW completed Loop Recorder Interrogation, Remote Kristian Providence DO INTERROGATION EVALUATION REMOTE </30 D ILR SYS completed ICM Interrogation, Remote (Tech) Kristian Providence DO INTERROGATION EVAL REMOTE </30 D TECH REVIEW completed Loop Recorder Interrogation, Remote Kristian Providence DO INTERROGATION EVALUATION REMOTE </30 D ILR SYS completed ICM Interrogation, Remote (Tech) Kristian Providence DO INTERROGATION EVAL REMOTE </30 D TECH REVIEW completed Loop Recorder Interrogation, Remote Kristian Providence DO INTERROGATION EVALUATION REMOTE </30 D ILR SYS completed ICM Interrogation, Remote (Tech) Kristian Providence DO INTERROGATION EVAL REMOTE </30 D TECH REVIEW completed EKG Kristian Providence DO completed SNOMED-CT: [id number] Current Medications Documented Kristian Providence DO completed Loop Recorder Interrogation, Remote Kristian Providence DO INTERROGATION EVALUATION REMOTE </30 D ILR SYS completed ICM Interrogation, Remote (Tech) Kristian Providence DO INTERROGATION EVAL REMOTE </30 D TECH REVIEW completed
--- NOTE | 2024-11-01 12:49 | ED_ITS ---
HPI - General Adult General Chief complaint: Arrhythmia/Palpitations Stated complaint: In Afib-sent by Dr He Time Seen by Provider: 11/01/24 12:18 History of Present Illness HPI narrative: 69-year-old female presented emergency department for evaluation for AFib. Patient does have known AFib and follows up with cardiology. Patient states that is paroxysmal. Patient is on Eliquis twice daily and metoprolol succinate 25 mg daily. Patient was found to be an AFib today and was told to increase her metoprolol to 50 mg once daily. Patient presented to the ED put did not take additional dose of her metoprolol yet. Patient denies any chest pain or shortness of breath but states he does have some intermittent dizziness. Related Data Home Medications ?Medication ?Instructions ?Recorded ?Confirmed ?Last Taken ?Type verapamil 120 mg 24 hr 120 mg PO DAILY 11/01/24 11/01/24 11/01/24 History capsule,extended release Allergies Allergy/AdvReac Type Severity Reaction Status Date / Time cephalexin AdvReac Intermediate Nausea and Verified 11/01/24 16:58 Vomiting and Diarrhea Review of Systems 2 Review of Systems: All systems reviewed & are unremarkable except as noted in HPI and below PMFSH Past Medical History Medical History (Updated 11/01/24 @ 15:05 by Xi Joseph APRN) CHF (congestive heart failure) Right knee DJD BMI 40.0-44.9, adult Breast cancer screening Abnormal mammogram of right breast Body mass index (BMI) of 40.1 to 44.9 in adult Brachial neuritis of both upper extremities TIA (transient ischemic attack) History of atrial fibrillation CVA (cerebral vascular accident) Acute right-sided muscle weakness Morbid obesity Bilateral cataracts Tinea pedis of left foot BMI greater than 40 Degenerative joint disease of knee Pain, joint, knee, left Acquired hypothyroidism Chronic kidney disease, stage 3 (moderate) Essential (primary) hypertension Hypersomnia Mixed hyperlipidemia 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, unspecified History of radioactive iodine thyroid ablation Surgical History Surgical History H/O cataract extraction History of arthroscopy of both shoulders Arthroplasty History of carpal tunnel release of both wrists ulnar nerve release as well History of hysterectomy History of cholecystectomy Family History Family History (Updated 11/01/24 @ 16:45 by Maite Metzger RN) Sibling Family history of cardiovascular disease, Onset Age: 62 Diabetes mellitus Family history of malignant neoplasm Mother Hypertension Patient's father is Father Patient's father is Other Family history of arthritis Social History Social History Social History: and has 3 children. She is a lifelong nonsmoker. She does not use any alcohol marijuana or illicit drugs. She is worked in a grocery store. Her is a durable power workers compensation defense attorney for healthcare. Code status full code. Smoking status: Never smoker Second hand tobacco smoke exposure: No Alcohol intake: never Substance use: never Substance use type: does not use Do You Feel Safe in your Home?: Yes Lack of Transportation: No Lack of Food: Never True Current Housing: I Have Housing Concerned About Future Housing: No Difficulty Paying Gas/Electric Bills: No Difficulty Paying for Meds: No Currently Unemployed: No Education: High School Diploma/GED Difficulty w/ Childcare or Family Care: No Living arrangements: with family Occupation/Education: retired Gender identity (if verbalized by the patient): Female Sexual Orientation (if Verbalized by the Patient): Straight or Heterosexual Spiritual care concerns: No Exam 2 Narrative: APPEARANCE: Well appearing, no pain, no distress, well-nourished. HEAD: normocephalic, atraumatic. EYES: PERRLA/EOMI, conjunctivae clear. NOSE: Normal no drainage EARS:TMS clear with good light reflex. THROAT: Pharynx clear, no exudate. NECK: Supple. No adenopathy, no masses. RESPIRATORY: Airway patent, respirations nonlabored. Clear to auscultation bilaterally, no rales, rhonchi, wheezing. CARDIOVASCULAR: Regular rate and rhythm without murmurs rubs or gallops. ABDOMINAL: Soft, nontender, nondistended, normal bowel sounds MUSCULOSKELETAL: Moves all extremities. Strength/ROM intact, No edema, No calf tenderness. NEURO: Alert. Cranial nerves II through XII intact. Good gait. Good coordination SKIN: Warm, dry. Normal Color Course Vital Signs Vital signs: Vital Signs Temperature 98 F 11/01/24 11:35 Pulse Rate 104 H 11/01/24 11:35 Blood Pressure 133/87 11/01/24 11:35 Pulse Oximetry 99 11/01/24 11:35 Temperature 97.8 F 11/01/24 20:00 Pulse Rate 108 H 11/01/24 20:00 Respiratory Rate 18 11/01/24 20:00 Blood Pressure 114/63 11/01/24 20:00 Pulse Oximetry 96 11/01/24 20:00 Oxygen Delivery Room Air 11/01/24 17:36 Medical Decision Making MDM Narrative Medical decision making narrative: 69-year-old female presents emergency department for evaluation for proximal AFib has currently AFib with RVR. Patient does take 25 mg metoprolol succinate and was treated with an additional 25 mg of metoprolol p.o. along with 5 mg of IV Lopressor and this did not help her heart rate. Patient was started on a Cardizem bolus and infusion. Patient is currently afebrile with no leukocytosis. UA was concerning for urinary tract infection, being both leukocyte esterase and nitrate positive. 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 Patient is being started on meropenem. Case was discussed with hospitalist patient was admitted to the IMU on a Cardizem infusion and meropenem. Patient was updated on the results of workup plan for admission. Differential Diagnosis Differential Diagnosis: AFib, UTI, pneumonia, CHF, COVID, RSV, influenza Vital Signs Vital Signs: Vital Signs Temperature 98 F 11/01/24 11:35 Pulse Rate 104 H 11/01/24 11:35 Blood Pressure 133/87 11/01/24 11:35 Pulse Oximetry 99 11/01/24 11:35 Temperature 97.8 F 11/01/24 20:00 Pulse Rate 108 H 11/01/24 20:00 Respiratory Rate 18 11/01/24 20:00 Blood Pressure 114/63 11/01/24 20:00 Pulse Oximetry 96 11/01/24 20:00 Oxygen Delivery Room Air 11/01/24 17:36 Lab Data Lab results reviewed: Yes I reviewed the patient's lab results. 11/01/24 13:51 11/01/24 13:51 Labs: Lab Results 11/01/24 11/01/24 Range/Units 13:11 13:51 WBC 7.5 (4.5-10.0) K/mm3 RBC 4.12 L (4.2-5.4) M/mm3 Hgb 12.1 (12.0-15.0) g/dL Hct 39.5 (37.0-47.0) % MCV 95.9 (80-100) fl MCH 29.4 (26-34) pg MCHC 30.6 L (32-36) g/dl RDW 13.5 (11.5-14.5) % Plt Count 212 (150-375) k/mm3 MPV 11.5 H (7.4-10.4) fl Immature Gran % (Auto) 0.3 (0-0.5) % Neut % (Auto) 57.3 (45.5-73.1) % Lymph % (Auto) 30.9 (18.3-44.2) % Morehouse % (Auto) 7.5 (2.6-8.5) % Eos % (Auto) 3.1 (0-4.4) % Baso % (Auto) 0.9 (0.2-1.2) % Lymph # (Auto) 2.31 (0.9-3.2) K/mm3 Morehouse # (Auto) 0.6 (0.1-0.6) K/mm3 Eos # (Auto) 0.2 (0-0.3) K/mm3 Baso # (Auto) 0.1 (0.0-0.1) K/mm3 Abs Immat Gran (auto) 0.02 (0.00-0.031) K/mm3 Absolute Neuts (auto) 4.3 (1.3-6.7) K/mm3 Absolute Nucleated RBC 0.000 (0.0-0.012) K/mm3 Nucleated RBC % 0.0 (0.0-0.2) % Sodium 138 (137-145) mmol/L Potassium 4.4 (3.4-5.0) mmol/L Chloride 109 H (98-107) mmol/L Carbon Dioxide 19 L (22-30) mmol/L Anion Gap 10 (4-12) mmol/L BUN 16 (7-17) mg/dL Creatinine 1.01 H (0.7-1.0) mg/dL Estim Creat Clear Calc 61 ml/min Estimated GFR 54 L (59 - ) Glucose 156 H (65-110) mg/dL Calcium 9.1 (8.4-10.2) mg/dL Magnesium 1.6 (1.6-2.3) mg/dL Total Bilirubin 0.3 (0.2-1.3) mg/dL AST 18 (14-36) U/L ALT 15 (6-35) U/L Alkaline Phosphatase 69 (38-126) U/L NT-Pro-B Natriuret Pep 1990 H (19.9-100) pg/mL Total Protein 7.0 (6.3-8.2) g/dL Albumin 3.9 (3.5-5.1) g/dL TSH (Reflex) 0.792 (0.465-4.68) uIU/mL Urine Color Yellow (Yellow) Urine Appearance Sl cloudy (Clear) Urine pH 6.0 (5.0-9.0) Ur Specific Magnolia 1.010 (1.001-1.035) Urine Protein Negative (Negative) mg/dL Urine Glucose (UA) Negative (Negative) mg/dL Urine Ketones Negative (Negative) mg/dL Ur Blood (Man) Negative (Negative) Urine Nitrate Positive H (Negative) Urine Bilirubin Negative (Negative) Urine Urobilinogen 0.2 (<2.0) mg/dL Leukocyte Esterase Rfl 1+ H (Negative) JITENDRA/UL Urine RBC 0-2 (0-2) /hpf Urine WBC 6-10 H (0-3) /hpf Ur Squamous Epith Cells Occasional (Few) /hpf Urine Bacteria 4+ H /hpf Urine Casts 0-2 Influenza A (RT-PCR) Negative (Negative) Influenza B (RT-PCR) Negative (Negative) RSV (RT-PCR) Negative (Negative) SARS-CoV-2 RNA (RT-PCR) Negative (Negative) Critical Care Time Critical Care Time Critical Care Time: Yes Total Critical Care Time: 35 Discharge Plan Discharge Clinical Impression: Urinary tract infection, Atrial fibrillation with rapid ventricular response Patient Disposition: Still a Patient Condition: Serious
[2024-11-01] MEDS: METOPROLOL SUCCINATE EXT REL 25 MG TABCR PO (13:15)
--- OUTSIDE RECORDS SUMMARY | 2024-11-01 13:32 | XMS_ITS | CONTINUITY OF CARE DOCUMENT ---
Author Name chepe, chepe Address Unknown Organization [facility] Address [address] [place] [address] Phone [phone] Care Team Providers Care Grain Roaster Name Role Phone Kristian Broderick DO Unavailable [phone] SATHISH FARIAS MD Unavailable SATHISH FARIAS MD Unavailable PROBLEMS Condition Status Date Provider Notes Presence [...] O'Valdo oxygen saturation, oximetry 94 % Vanda O'Valdo respiratory rate E&M 16 /min Vanda O'Valdo [...] Payer name Policy type / Coverage type [place] red [employer] party ID SELF PAY [id number] TREATMENT PLAN Date Name Performer Cardiology/EP:unclea r etiol. cont to monitor with Reveal. on Eliquis for now. Kristian Mckinnonck DO Cardiology/EP:no episodes per Re veal checks Kristian Abdullahicock DO Cardiology/EP:no further episode s since last appt Kristian Abdullahicock DO Cardiology/EP Kristian Abdullahicock DO HISTORY OF PROCEDURES Procedure Date Procedure Name Provider Procedure Notes S tatus Loop Recorder Interrogation, Remote Kristian Worcester DO INTERROGATION EVALUATION REMOTE </30 D ILR SYS completed ICM Interrogation, Remote (Tech) Kristian Worcester DO INTERROGATION EVAL REMOTE </30 D TECH REVIEW completed Loop Recorder Interrogation, Remote Kristian Worcester DO INTERROGATION EVALUATION REMOTE </30 D ILR SYS completed ICM Interrogation, Remote (Tech) Kristian Worcester DO INTERROGATION EVAL REMOTE </30 D TECH REVIEW completed Loop Recorder Interrogation, Remote Kristian [place] DO INTERROGATION EVALUATION REMOTE </30 D ILR SYS completed ICM Interrogation, Remote (Tech) Kristian Worcester DO INTERROGATION EVAL REMOTE </30 D TECH REVIEW completed Loop Recorder Interrogation, Remote Kristian Worcester DO INTERROGATION EVALUATION REMOTE </30 D ILR SYS completed ICM Interrogation, Remote (Tech) Kristian Worcester DO INTERROGATION EVAL REMOTE </30 D TECH REVIEW completed Loop Recorder Interrogation, Remote Kristian Worcester DO INTERROGATION EVALUATION REMOTE </30 D ILR SYS completed ICM Interrogation, Remote (Tech) Kristian Worcester DO INTERROGATION EVAL REMOTE </30 D TECH REVIEW completed Loop Recorder Interrogation, Remote Kristian Worcester DO INTERROGATION EVALUATION REMOTE </30 D ILR SYS completed ICM Interrogation, Remote (Tech) Kristian Worcester DO INTERROGATION EVAL REMOTE </30 D TECH REVIEW completed Loop Recorder Interrogation, Remote Kristian Worcester DO INTERROGATION EVALUATION REMOTE </30 D ILR SYS completed ICM Interrogation, Remote (Tech) Kristian Worcester DO INTERROGATION EVAL REMOTE </30 D TECH REVIEW completed Loop Recorder Interrogation, Remote Kristian Worcester DO INTERROGATION EVALUATION REMOTE </30 D ILR SYS completed ICM Interrogation, Remote (Tech) Kristian Worcester DO INTERROGATION EVAL REMOTE </30 D TECH REVIEW completed Loop Recorder Interrogation, Remote Kristian Worcester DO INTERROGATION EVALUATION REMOTE </30 D ILR SYS completed ICM Interrogation, Remote (Tech) Kristian Worcester DO INTERROGATION EVAL REMOTE </30 D TECH REVIEW completed Loop Recorder Interrogation, Remote Kristian Worcester DO INTERROGATION EVALUATION REMOTE </30 D ILR SYS completed ICM Interrogation, Remote (Tech) Kristian Worcester DO INTERROGATION EVAL REMOTE </30 D TECH REVIEW completed Loop Recorder Interrogation, Remote Kristian Worcester DO INTERROGATION EVALUATION REMOTE </30 D ILR SYS completed ICM Interrogation, Remote (Tech) Kristian Worcester DO INTERROGATION EVAL REMOTE </30 D TECH REVIEW completed Loop Recorder Interrogation, Remote Kristian Worcester DO INTERROGATION EVALUATION REMOTE </30 D ILR SYS completed ICM Interrogation, Remote (Tech) Kristian Worcester DO INTERROGATION EVAL REMOTE </30 D TECH REVIEW completed Loop Recorder Interrogation, Remote Kristian Worcester DO INTERROGATION EVALUATION REMOTE </30 D ILR SYS completed ICM Interrogation, Remote (Tech) Kristian Worcester DO INTERROGATION EVAL REMOTE </30 D TECH REVIEW completed EKG Kristian Worcester DO completed SNOMED-CT: [id number] Current Medications Documented Kristian Worcester DO completed Loop Recorder Interrogation, Remote Kristian Worcester DO INTERROGATION EVALUATION REMOTE </30 D ILR SYS completed ICM Interrogation, Remote (Tech) Kristian Worcester DO INTERROGATION EVAL REMOTE </30 D TECH REVIEW completed
--- OUTSIDE RECORDS SUMMARY | 2024-11-01 13:32 | XMS_ITS | Clinical Summary ---
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
--- OUTSIDE RECORDS SUMMARY | 2024-11-01 13:32 | XMS_ITS | Continuity of Care Document ---
Author Organization [facility] Address [address] [facility] [address] [place] [id number] Phone Care Team Providers Care Metal Stamping Machine Operator Name Role Phone Lázaro Perdomo MD, FACS [...] Providers Copied on Encounter Office/outpa tient Visit, [facility] [place], [address], [place], [place], [address], [place] tel:[phone] SEC [place] ESCOBEDO Professional Y[facility] (chief complaint) Presence of intraocular lens 4 Conor Sesay. [address], [address], [place], [place], [address], [place]. tel:[phone] Referring Provider: Jordy Woody, [address] [facility] [address], [place], [address] . tel:[phone] Office/outpa tient Visit, [facility] [place], [address], [place], [place], [address], [place] tel:[phone] SEC [place] Professional Follow up visit (chief complaint) Other secondary cataract, bilateralPrese nce of intraocular lensType 2 diabetes mellitus without complicationsD ry eye syndrome of bilateral lacrimal glands 4 Jose OD Jennie. [facility] [address], [address], [place], [place], [address], [place]. tel:[phone] Referring Provider: Jordy Woody, [address], [place], [address] . tel:[phone] [facility], [facility] [address], [place], [place], [address], [place] tel:[phone] SEC [place] Professional Complete Exam (chief complaint) Type 2 diabetes mellitus without complicationsP resence of intraocular lensHistory of laser assisted in situ keratomileusis Drusen (degenerative) of macula, bilateral 3 Jose OD Jennie. [facility] [employer], [address], [place], [place], [address], [place]. tel:[phone] Referring Provider: Jordy Woody, [address], [place], [address] . tel:[phone] [facility], [facility] [address], [place], [place], [address], [place] tel:[phone] SEC [place] Professional office visit (chief complaint) Type 2 diabetes mellitus without complicationsP resence of intraocular lensHistory of laser assisted in situ keratomileusis 2 Justo Spence. [address], [address], [place], [place], [address], [place]. tel:[phone] Referring Provider: Jordy Woody, [address], [place], [address] . tel:[phone] [facility], [facility] [address], [place], [place], [address], [place] tel:[phone] [place] Professional 2 wk CE PO (06/19/21) (chief complaint) Post op visit 2 Jose OD Jennie. [address] [employer], [address], [place], [place], [address], . tel:[phone] Referring Provider: Jordy Woody, [address], [place], [address] . tel:[phone] [facility], [address], [place], [place], [address], tel:[phone] [place] Professional post op (chief complaint) Post op visit 1 Jose OD Jennie. [facility] [employer], [address], [place], [place], [address], . tel:[phone] Referring Provider: Jordy Woody, [address], [place], [address] . tel:[phone] [facility], [address], [place], [place], [address], tel:[phone] SEC [place] Professional 1 day CE PO (06/19/21) (chief complaint) Post op visit 1 Jose OD Jennie. [address] [employer], [address], [place], [place], [address], [place]. tel:[phone] Referring Provider: Jordy Woody, [address], [place], [address] . tel:[phone] [facility], [address] [address], [place], [place], [address], tel:[phone] [facility] No Information 1 Justo Spence. [address], [place], [address], [place]. tel:[phone] Referring Provider: Jordy Woody, [address] [facility] [address], [place], [address] . tel:[phone] [facility] [employer] [facility], [address], [place], [place], [address], tel:[phone] SEC Blayne ESCOBEDO Professional No Information 1 Justo Spence. [address] [facility] [employer], [address], [place], [place], [address], . tel:[phone] Referring Provider: Jordy Woody, [address] [facility] [employer] [address], [place], [address] . tel:[phone] [facility], [address], [place], [place], [address], tel:[phone] [place] Professional 2 wk po PCIOL OS (05/27/21) (chief complaint) Post op visit 1 Jose OD Jennie. [facility] [employer], [address], [place], [place], [address], [place]. tel:[phone] Referring Provider: Jordy Woody, [address] [facility] [address], [place], [address] . tel:[phone] [facility], [address], [place], [place], [address], [place] tel:[phone] [place] Professional 1 day CE PO (05/27/21) (chief complaint) Post op visit 1 Jose OD Jennie. [facility] [employer], [address], [place], [place], [address], . tel:[phone] Referring Provider: Jordy Woody, [address] [facility] [address], [place], [address] . tel:[phone] [facility], [address], [place], [place], [address], [place] tel:[phone] [facility] No Information 1 Justo Spence. [address] [facility], [address], [place], [place], [address], . tel:[phone] Referring Provider: Jordy Woody, [address] [facility] [address], [place], [address] . tel:[phone] [facility], [address] [place] [address] [address], [place], [place], [address], [place] tel:[phone] SEC Blayne ESCOBEDO Professional No Information 1 Justo Spence. [address] [facility], [address], [place], [place], [address], . tel:[phone] Referring Provider: Jordy Woody, [address] [facility] [address], [place], [address] . tel:[phone] Office/outpa tient Visit, [facility], [address] [place] [address] [address], [place], [place], [address], [place] tel:[phone] SEC [place] Professional Complete Exam (chief complaint) Age-related nuclear cataract, bilateralDruse n (degenerative) of macula, bilateralType 2 diabetes mellitus without complicationsH istory of laser assisted in situ keratomileusis Apr- 1 Justo Spence. [address] [facility], [address], [place], [place], [address], [place]. tel:[phone] Referring Provider: Jordy Woody, [address] [facility] [address], [place], [address] . tel:[phone] [facility], [address] [place] [address] [address], [place], [place], [address], [place] tel:[phone] [place] Professional Diabetic eye exam (chief complaint) Nuclear sclerosisDiabe bernadine 5 Gonzalez Becerril. [address] [facility], [address], [place], [place], [address], [place]. tel:[phone] Referring Provider: Jone Zapata, [address], [place], [address] . tel:[phone] Family History Family Member Type Diagnosis Age At Onset Sister Problem (finding) diabetes jarvis porter in first degree relative Payers Payer name Insurance type Covered alliance party ID Authorbassem moreau(s) [facility] Mdcr Adv CI [id number] Social History Type Description Quantity Date Captured [...] Impression/Plan Impression/Plan Impression/Plan Impression/Plan Impression/Plan Impression/Plan Impression/Plan - Return in 1 year shantelle Roth M.D. for Complete Exam , Diabetic Eval Related to Nuclear sclerosis - Diabetes no [...] Related to See list of assessments above Nuclear sclerosis - Educational material given Related to Nuclear sclerosis Assessments Type Assessment Date assessment Presence of intraocular lens Feb impression Presence of intraocular lens: Z9 6.1 Patient Care Teams Name Effective Dates (start - stop) Status Members No Information
[2024-11-01] MEDS: LACTATED RINGERS 1,000 ML 999 ML IV CONT (13:50)
[2024-11-01 14:00] LABS: Basophils Absolute Auto 0.1 K/mm3 (0.0-0.1); Basophils Percent Auto 0.9 % (0.2-1.2); Eosinophils Absolute Auto 0.2 K/mm3 (0-0.3); Eosinophils Percent Auto 3.1 % (0-4.4); Hematocrit 39.5 % (37.0-47.0); Hemoglobin 12.1 g/dL (12.0-15.0); Immature Granulocyte Absolute 0.02 K/mm3 (0.00-0.031); Immature Granulocyte Percent A 0.3 % (0-0.5); Lymphocytes Absolute Auto 2.31 K/mm3 (0.9-3.2); Lymphocytes Percent Auto 30.9 % (18.3-44.2); Mean Corpuscular HGB Conc 30.6 g/dl (32-36); Mean Corpuscular Hemoglobin 29.4 pg (26-34); Mean Corpuscular Volume 95.9 fl (80-100); Mean Platelet Volume 11.5 fl (7.4-10.4); Monocytes Absolute Auto 0.6 K/mm3 (0.1-0.6); Monocytes Percent Auto 7.5 % (2.6-8.5); Neutrophils Absolute Auto 4.3 K/mm3 (1.3-6.7); Neutrophils Percent Auto 57.3 % (45.5-73.1); Platelet Count Result 212 k/mm3 (150-375); Red Blood Count 4.12 M/mm3 (4.2-5.4); Red Cell Distribution Width 13.5 % (11.5-14.5); White Blood Count 7.5 K/mm3 (4.5-10.0)
[2024-11-01 14:06] LABS: Bacteria Urine 4+ /hpf; Bilirubin Urine Negative (Negative); Blood Urine Negative (Negative); Color Urine Yellow (Yellow); Glucose Urine UA Negative (Negative); Ketones Urine Negative (Negative); Leukocyte Esterase Ur 1+ LEU/UL (Negative); Nitrate Urine Positive (Negative); Non Pathogenic Casts 0-2; Protein Urine Negative (Negative); RBC Urine 0-2 /hpf (0-2); Squamous Epithelial Cell Urine Occasional /hpf (Few); Urobilinogen Urine 0.2 mg/dL (<2.0)
[2024-11-01 14:11] LABS: Add Urine Microscopic? YES; Appearance Urine Sl Cloudy (Clear)
[2024-11-01 14:21] LABS: Alanine Aminotransferase 15 U/L (6-35); Albumin Level 3.9 g/dL (3.5-5.1); Alkaline Phosphatase 69 U/L (38-126); Anion Gap 10 mmol/L (4-12); Aspartate Amino Transferase 18 U/L (14-36); Bilirubin,Total 0.3 mg/dL (0.2-1.3); Blood Urea Nitrogen 16 mg/dL (7-17); Calcium 9.1 mg/dL (8.4-10.2); Carbon Dioxide 19 mmol/L (22-30); Chloride 109 mmol/L (98-107); Estimated CRCL calculation 61 ml/min; Estimated Glomerular Filt Rate 54; Glucose 156 mg/dL (65-110); Magnesium 1.6 mg/dL (1.6-2.3); Potassium 4.4 mmol/L (3.4-5.0); Sodium 138 mmol/L (137-145)
--- NOTE | 2024-11-01 14:29 | P.HP_ITS ---
H&P: HPI History of Present Illness Date/Time: 11/01/24 14:29 Chief Complaint: A fib RVR Narrative: This is a 69-year-old female with a significant past medical history of TIA, CVA with residual right-sided weakness, atrial fibrillation, morbid obesity, chronic kidney disease stage 3, hyperlipidemia, hypertension, type 2 diabetes mellitus, cataracts status post cataract extraction, vitamin-D deficiency, osteoarthritis who presented to the hospital with complaints of AFib RVR. Patient states that she noticed increased shortness of breath when she got dressed this morning to go to her doctor's appointment. She states that it felt like her heart was racing. At her doctor's office they found that she was in AFib and told her to take another 25 mg of her metoprolol however she decided to present here for further evaluation. She is followed by Dr. Davis glass block bender on an outpatient basis. She denies any recent illness, fever, chills, nausea, vomiting, diarrhea, abdominal pain, chest pain. Workup in the hospital included initial labs which showed a normal white blood cell count of 7.5, bicarb 19, creatinine 1.01, EGFR 54, blood sugar 156 with last hemoglobin A1c 6.9 on 09/05/2024. UA was obtained which showed positive nitrate, 1+ leukocyte, 6-10 urine WBC, 4+ urine bacteria. Urine culture was obtained and pending. EKG showing AFib with RVR with a rate of 127, QTC 438. Patient was given 5 mg IV push buttock and 25 mg metoprolol succinate while in the ED with little response to control in the heart rate. Patient was also given 1 L of LR, Cardizem bolus with infusion. She was also started on meropenem considering she has had ESBL in the past. Review of Systems Review of Systems: All systems reviewed & are unremarkable except as noted in HPI and below [facility] Past Medical History Medical History (Updated 11/01/24 @ 15:05 by Xi Joseph APRN) CHF (congestive heart failure) Right knee DJD BMI 40.0-44.9, adult Breast cancer screening Abnormal mammogram of right breast Body mass index (BMI) of 40.1 to 44.9 in adult Brachial neuritis of both upper extremities TIA (transient ischemic attack) History of atrial fibrillation CVA (cerebral vascular accident) Acute right-sided muscle weakness Morbid obesity Bilateral cataracts Tinea pedis of left foot BMI greater than 40 Degenerative joint disease of knee Pain, joint, knee, left Acquired hypothyroidism Chronic kidney disease, stage 3 (moderate) Essential (primary) hypertension Hypersomnia Mixed hyperlipidemia 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, unspecified History of radioactive iodine thyroid ablation Surgical History Surgical History H/O cataract extraction History of arthroscopy of both shoulders Arthroplasty History of carpal tunnel release of both wrists ulnar nerve release as well History of hysterectomy History of cholecystectomy Family History Family History (Updated 11/01/24 @ 16:45 by Maite Metzger RN) Sibling Family history of cardiovascular disease, Onset Age: 62 Diabetes mellitus Family history of malignant neoplasm Mother Hypertension Patient's father is Father Patient's father is Other Family history of arthritis Social History Social History Social History: and has 3 children. She is a lifelong nonsmoker. She does not use any alcohol marijuana or illicit drugs. She is worked in a grocery store. Her is a durable power deputy commonwealth's attorney for healthcare. Code status full code. Smoking status: Never smoker Second hand tobacco smoke exposure: No Alcohol intake: never Substance use: never Substance use type: does not use Do You Feel Safe in your Home?: Yes Lack of Transportation: No Lack of Food: Never True Current Housing: I Have Housing Concerned About Future Housing: No Difficulty Paying Gas/Electric Bills: No Difficulty Paying for Meds: No Currently Unemployed: No Education: High School Diploma/GED Difficulty w/ Childcare or Family Care: No Living arrangements: with family Occupation/Education: retired Gender identity (if verbalized by the patient): Female Sexual Orientation (if Verbalized by the Patient): Straight or Heterosexual Spiritual care concerns: No Meds Home Medications and Allergies Home Medications ?Medication ?Instructions ?Recorded ?Confirmed ?Type blood sugar diagnostic (OneTouch #100 ea 05/26/23 11/01/24 Rx Verio test strips) levothyroxine 137 mcg tablet 137 mcg PO DAILY #90 tabs 02/26/24 11/01/24 Rx apixaban 5 mg tablet (Eliquis) 5 mg PO BID #60 tabs 08/15/24 11/01/24 Rx omeprazole 20 mg capsule,delayed 20 mg PO DAILY #90 caps 08/15/24 11/01/24 Rx release atorvastatin 10 mg tablet See Rx Instructions .Route 09/12/24 11/01/24 Rx .COMPLEX #90 tabs metoprolol succinate 25 mg 25 mg PO DAILY #30 tabs 11/01/24 11/01/24 Rx tablet,extended release 24 hr (Toprol XL) verapamil 120 mg 24 hr 120 mg PO DAILY 11/01/24 11/01/24 History capsule,extended release Allergies Allergy/AdvReac Type Severity Reaction Status Date / Time cephalexin AdvReac Intermediate Nausea and Verified 11/01/24 16:58 Vomiting and Diarrhea Vital Signs Vital Signs - 24 hr 11/01/24 11:35 11/01/24 12:29 11/01/24 13:15 Temperature 98 F Pulse Rate 104 H 138 H 110 H Blood Pressure 133/87 Pulse Oximetry 99 Exam Narrative: General: In no acute distress, well nourished Head: atraumatic, no encephalopathy Eyes: PERRLA, sclera clear ENT: moist mucous membranes, nasal passages clear Neck: supple, no JVD, no adenopathy, trachea midline Cardiac: Normal S1 and S2. Irregular rhythm No murmur, gallops or friction rubs, peripheral pulses intact. Respiratory: Lungs clear to auscultation, no adventitious lung sounds, currently on room air Gastrointestinal: soft, non-distended, non-tender, normoactive bowel sounds. : voiding without difficulty. Extremities: moves all extremities well, no edema\ Skin: clean, dry, intact. No wounds or lesions. Neuro: Alert and oriented x4, cranial nerves intact, no neuro deficits. Psych: normal mood, normal affect, interactive H&P: Results Labs Labs: Short CBC 11/01/24 Range/Units 13:51 WBC 7.5 (4.5-10.0) K/mm3 Hgb 12.1 (12.0-15.0) g/dL Hct 39.5 (37.0-47.0) % Plt Count 212 (150-375) k/mm3 BMP 11/01/24 13:51 Sodium 138 Potassium 4.4 Chloride 109 H Carbon Dioxide 19 L BUN 16 Creatinine 1.01 H Glucose 156 H Calcium 9.1 Liver Function 11/01/24 Range/Units 13:51 Total Bilirubin 0.3 (0.2-1.3) mg/dL AST 18 (14-36) U/L ALT 15 (6-35) U/L Alkaline Phosphatase 69 (38-126) U/L Albumin 3.9 (3.5-5.1) g/dL Urine 11/01/24 Range/Units 13:11 Urine Color Yellow (Yellow) Urine Appearance Sl cloudy (Clear) Urine pH 6.0 (5.0-9.0) Ur Specific Douglas 1.010 (1.001-1.035) Urine Protein Negative (Negative) mg/dL Urine Glucose (UA) Negative (Negative) mg/dL Imaging Chest x-ray: Radiologist's impression: XR chest 1V portable Ordering provider: Xi Joseph History: 69 years Female with . SOB . Comparison: May 30, 2024 FINDINGS: MEDIASTINUM: The cardiac silhouette is moderately enlarged. Device projecting over the left hemithorax. Congestive anna. LUNGS: No infiltrates, effusions or pneumothorax. Minimal bilateral interstitial thickening. OTHER: No free air under the diaphragm. Degenerative changes of the spine. IMPRESSION: Cardiomegaly with cardiac decompensation and pulmonary edema are highly suggestive. Superimposed pneumonitis cannot be excluded Reviewed, dictated and finalized at location A. Assessment and Plan Assessment and plan (1) Atrial fibrillation with rapid ventricular response: Code(s): I48.91 - Unspecified atrial fibrillation Status: Acute Assessment and Plan: Patient has history of AFib and sees Dr. Davis on an outpatient basis * Cardizem bolus and drip started in the ED * Patient was also given 25 mg metoprolol succinate and 5 mg IV push metoprolol tartrate while in the ED * Continue cardiac monitoring * Chest x-ray shown cardiomegaly with cardiac decompensation and pulmonary edema * Patient was given a dose of 40 mg IV push Lasix * Admit to IMU * Hold metoprolol for now * Continue Eliquis (2) Urinary tract infection: Code(s): N39.0 - Urinary tract infection, site not specified Status: Acute Assessment and Plan: * UA showed positive nitrate, 1+ leukocyte, 6-10 urine WBC, 4+ urine bacteria * Urine culture obtained and pending * Previous culture reviewed showing E coli and Klebsiella pneumoniae with marked resistance * Patient started on meropenem (3) CHF (congestive heart failure): Code(s): I50.9 - Heart failure, unspecified Status: Acute Assessment and Plan: Diastolic dysfunction * Previous echo from 09/28/2023 shown normal LV systolic function with an estimated EF of 60-65%, grade 1 diastolic dysfunction * Patient was given 40 mg IV push Lasix * Chest x-ray showing cardiomegaly with cardiac decompensation and pulmonary edema (4) Type 2 diabetes mellitus: Code(s): E11.9 - Type 2 diabetes mellitus without complications Status: Acute Assessment and Plan: * Blood sugar 156 * Hgb A1C 6.9 on 09/05/2024 * Accu checks AC/HS * High-dose SSI ordered * hypoglycemic protocol in place * Diabetic diet ordered (5) Essential (primary) hypertension: Code(s): I10 - Essential (primary) hypertension Status: Acute Assessment and Plan: * Blood pressure ranging 133/87 to 160/104 * Continue verapamil * Hydralazine ordered for systolic greater than 160 (6) Chronic kidney disease, stage 3 (moderate): Code(s): N18.3 - Chronic kidney disease, stage 3 (moderate) Status: Acute Assessment and Plan: * Creatinine 1.01, EGFR 54 which is below patient's baseline * Baseline appears to be 1.20-1.7 on previous labs * Continue to trend (7) Mixed hyperlipidemia: Code(s): E78.2 - Mixed hyperlipidemia Status: Acute Assessment and Plan: * Continue atorvastatin (8) GERD (gastroesophageal reflux disease): Code(s): K21.9 - Gastro-esophageal reflux disease without esophagitis Status: Acute Assessment and Plan: * Start Protonix (9) Morbid obesity: Code(s): E66.01 - Morbid (severe) obesity due to excess calories Status: Acute Assessment and Plan: * BMI 37.6, 115.5 kg * Educate on diet and exercise program Quality VTE Prophylaxis VTE prophylaxis: pharmacologic ordered Hospitalist MIPS Advance Care Plan I have confirmed that the patient's Advanced Care Plan is present, code status is documented, or surrogate decision maker is listed in patient medical record.: Yes Medication Reconciliation I have utilized all available resources to obtain, update and review the patients current medications (includes all prescriptions, OTC, herbals, cannabis, and nutritional supplements).: Yes
[2024-11-01 14:33] LABS: Influenza A QL RT-PCR Negative (Negative); Influenza B QL RT-PCR Negative (Negative); RSV RNA, RT-PCR Negative (Negative); SARS-CoV-2 RNA PCR Negative (Negative)
[2024-11-01] MEDS: dilTIAZem 100 MG/100 ML 100 MG/100 ML BAG IV CONT (14:34)
[2024-11-01] MEDS: dilTIAZem HCl INJ 25 MG/5 ML VIAL 10 MG IV PUSH (14:35)
[2024-11-01 14:52] LABS: Thyroid Stimulating Hormone Reflex 0.792 uIU/mL (0.465-4.68)
[2024-11-01 15:43] LABS: NT Pro B Type Natriuretic Pept 1990 pg/mL (19.9-100)
[2024-11-01] MEDS: MEROPENEM 1 GM/NS 100 ML 1 GM/100 ML BAG IVPB ×2 (15:46→20:53)
--- NOTE | 2024-11-01 16:40 | ADMGEN ---
This patient, Mery Gutierrez, was admitted to IMU Room 202-. Patient/family oriented to hospital policies and general routines including ID bracelet, bed and alarms, visiting hours, pain management, procedures, bathroom and other care routines, personal items, smoking policy, room service/diet, and visiting hours. Information on how to activate the Rapid Response Team has been discussed. Patient/Family are encouraged to report perceived risks to care and to ask questions if they do not understand what they are told or what they should do.
[2024-11-01 16:57] LABS: Glucose Point of Care 138 mg/dl (65-105)
[2024-11-01] MEDS: FUROSEMIDE INJ 40 MG/4 ML VIAL IV PUSH (17:32)
--- NOTE | 2024-11-01 17:59 | PC.NURSE ---
This patient, Mery Gutierrez, was admitted to IMU Room 202-01 at 1603. Patient/family oriented to hospital policies and general routines including ID bracelet, bed and alarms, visiting hours, pain management, procedures, bathroom and other care routines, personal items, smoking policy, room service/diet, and visiting hours. Information on how to activate the Rapid Response Team has been discussed. Patient/Family are encouraged to report perceived risks to care and to ask questions if they do not understand what they are told or what they should do.
[2024-11-01 20:18] LABS: Glucose Point of Care 143 mg/dl (65-105)
[2024-11-01] MEDS: APIXABAN 5 MG TABLET PO (23:20)
[2024-11-02] VITALS (21 sets, daily range): BP systolic 94–148; BP diastolic 42–81; PULSE 60–124; RESP 16–20; TEMP 36.4–36.8; O2SAT 95–100
[2024-11-02] MEDS: dilTIAZem 100 MG/100 ML 100 MG/100 ML BAG IV CONT (04:30)
[2024-11-02 04:49] LABS: Basophils Absolute Auto 0.1 K/mm3 (0.0-0.1); Basophils Percent Auto 0.7 % (0.2-1.2); Eosinophils Absolute Auto 0.3 K/mm3 (0-0.3); Hematocrit 40.9 % (37.0-47.0); Hemoglobin 12.9 g/dL (12.0-15.0); Immature Granulocyte Absolute 0.03 K/mm3 (0.00-0.031); Immature Granulocyte Percent A 0.4 % (0-0.5); Lymphocytes Absolute Auto 2.63 K/mm3 (0.9-3.2); Lymphocytes Percent Auto 32.5 % (18.3-44.2); Mean Corpuscular HGB Conc 31.5 g/dl (32-36); Mean Corpuscular Hemoglobin 29.1 pg (26-34); Mean Corpuscular Volume 92.1 fl (80-100); Mean Platelet Volume 11.1 fl (7.4-10.4); Monocytes Absolute Auto 0.7 K/mm3 (0.1-0.6); Monocytes Percent Auto 8.3 % (2.6-8.5); Neutrophils Absolute Auto 4.4 K/mm3 (1.3-6.7); Neutrophils Percent Auto 54.1 % (45.5-73.1); Platelet Count Result 225 k/mm3 (150-375); Red Blood Count 4.44 M/mm3 (4.2-5.4); Red Cell Distribution Width 13.5 % (11.5-14.5); White Blood Count 8.1 K/mm3 (4.5-10.0)
[2024-11-02 05:01] LABS: Alanine Aminotransferase 15 U/L (6-35); Albumin Level 4.1 g/dL (3.5-5.1); Alkaline Phosphatase 77 U/L (38-126); Anion Gap 11 mmol/L (4-12); Aspartate Amino Transferase 20 U/L (14-36); Bilirubin,Total 0.6 mg/dL (0.2-1.3); Blood Urea Nitrogen 15 mg/dL (7-17); Calcium 9.1 mg/dL (8.4-10.2); Carbon Dioxide 24 mmol/L (22-30); Chloride 105 mmol/L (98-107); Estimated CRCL calculation 65 ml/min; Estimated Glomerular Filt Rate 58; Glucose 155 mg/dL (65-110); Potassium 3.7 mmol/L (3.4-5.0); Sodium 140 mmol/L (137-145)
[2024-11-02] MEDS: MEROPENEM 1 GM/NS 100 ML 1 GM/100 ML BAG IVPB ×3 (05:01→20:23)
[2024-11-02] MEDS: LEVOTHYROXINE SODIUM 112 MCG, LEVOTHYROXINE SODIUM 25 MCG 137 MCG PO (05:42)
[2024-11-02 08:04] LABS: Glucose Point of Care 180 mg/dl (65-105)
[2024-11-02] MEDS: VERAPAMIL HCL ER 120 MG TABLET PO (08:24)
[2024-11-02] MEDS: PANTOPRAZOLE 40 MG TABLET PO (08:24)
[2024-11-02] MEDS: APIXABAN 5 MG TABLET PO ×2 (08:24→20:22)
[2024-11-02] MEDS: ATORVASTATIN 10 MG TABLET PO (08:24)
[2024-11-02 11:55] LABS: Glucose Point of Care 151 mg/dl (65-105)
--- NOTE | 2024-11-02 13:32 | P.PNIM_ITS ---
Progress Note: A&P Assessment and Plan (1) Atrial fibrillation with rapid ventricular response: Code(s): I48.91 - Unspecified atrial fibrillation Status: Acute Assessment and Plan: Patient has history of AFib and sees Dr. Davis on an outpatient basis * Patient was also given 25 mg metoprolol succinate and 5 mg IV push metoprolol tartrate while in the ED * Continue cardiac monitoring * Chest x-ray shown cardiomegaly with cardiac decompensation and pulmonary edema * Patient was given a dose of 40 mg IV push Lasix * Continue IMU status * Start metoprolol 25 mg p.o. b.i.d. * Continue Cardizem infusion * Continue Eliquis (2) Urinary tract infection: Code(s): N39.0 - Urinary tract infection, site not specified Status: Acute Assessment and Plan: * UA showed positive nitrate, 1+ leukocyte, 6-10 urine WBC, 4+ urine bacteria * Urine culture obtained and pending * Previous culture reviewed showing E coli and Klebsiella pneumoniae with marked resistance * Patient started on meropenem (3) CHF (congestive heart failure): Code(s): I50.9 - Heart failure, unspecified Status: Acute Assessment and Plan: Diastolic dysfunction * Previous echo from 09/28/2023 shown normal LV systolic function with an estimated EF of 60-65%, grade 1 diastolic dysfunction * Patient was given 40 mg IV push Lasix on admission * Will start Lasix 40 mg daily * Chest x-ray showing cardiomegaly with cardiac decompensation and pulmonary edema (4) Type 2 diabetes mellitus: Code(s): E11.9 - Type 2 diabetes mellitus without complications Status: Acute Assessment and Plan: * Blood sugar 155-180 * Hgb A1C 6.9 on 09/05/2024 * Accu checks AC/HS * High-dose SSI ordered * hypoglycemic protocol in place * Diabetic diet ordered (5) Essential (primary) hypertension: Code(s): I10 - Essential (primary) hypertension Status: Acute Assessment and Plan: * Blood pressure ranging 133/87 to 160/104 * Continue verapamil * Hydralazine ordered for systolic greater than 160 (6) Chronic kidney disease, stage 3 (moderate): Code(s): N18.3 - Chronic kidney disease, stage 3 (moderate) Status: Acute Assessment and Plan: * Creatinine 1.01, EGFR 54 which is below patient's baseline * Baseline appears to be 1.20-1.7 on previous labs * Continue to trend (7) Mixed hyperlipidemia: Code(s): E78.2 - Mixed hyperlipidemia Status: Acute Assessment and Plan: * Continue atorvastatin (8) GERD (gastroesophageal reflux disease): Code(s): K21.9 - Gastro-esophageal reflux disease without esophagitis Status: Acute Assessment and Plan: * Start Protonix (9) Morbid obesity: Code(s): E66.01 - Morbid (severe) obesity due to excess calories Status: Acute Assessment and Plan: * BMI 37.6, 115.5 kg * Educate on diet and exercise program Time Spent With Patient Time with patient: 15 - 25 minutes Subjective Date/time seen: 11/02/24 13:32 Interval history: interval history: This is a 69-year-old female with a significant past medical history of TIA, CVA with residual right-sided weakness, atrial fibrillation, morbid obesity, chronic kidney disease stage 3, hyperlipidemia, hypertension, type 2 diabetes mellitus, cataracts status post cataract extraction, vitamin-D deficiency, osteoarthritis who presented to the hospital with complaints of AFib RVR. Patient states that she noticed increased shortness of breath when she got dressed this morning to go to her doctor's appointment. She states that it felt like her heart was racing. At her doctor's office they found that she was in AFib and told her to take another 25 mg of her metoprolol however she decided to present here for further evaluation. She is followed by Dr. Davis [employer] worker on an outpatient basis. She denies any recent illness, fever, chills, nausea, vomiting, diarrhea, abdominal pain, chest pain. Workup in the hospital included initial labs which showed a normal white blood cell count of 7.5, bicarb 19, creatinine 1.01, EGFR 54, blood sugar 156 with last hemoglobin A1c 6.9 on 09/05/2024. UA was obtained which showed positive nitrate, 1+ leukocyte, 6-10 urine WBC, 4+ urine bacteria. Urine culture was obtained and pending. EKG showing AFib with RVR with a rate of 127, QTC 438. Patient was given 5 mg IV push buttock and 25 mg metoprolol succinate while in the ED with little response to control in the heart rate. Patient was also given 1 L of LR, Cardizem bolus with infusion. She was also started on meropenem considering she has had ESBL in the past. subjective: Patient denies any new complaints today. She did state that she did not sleep very well through the night. Her heart rate is still 90 to low 100s. Labs reviewed. Review of Systems Review of Systems: All systems reviewed & are unremarkable except as noted in HPI and below Exam Narrative: General: In no acute distress, well nourished Cardiac: Normal S1 and S2. Irregular rhythm No murmur, gallops or friction rubs, peripheral pulses intact. Respiratory: Lungs clear to auscultation, no adventitious lung sounds, currently on room air Gastrointestinal: soft, non-distended, non-tender, normoactive bowel sounds. : voiding without difficulty. Neuro: Alert and oriented x4 Objective Data Vital Signs Vital Signs: Vital Signs - 24 hr 11/01/24 13:56 11/01/24 14:00 11/01/24 14:01 Temperature Pulse Rate 131 H 114 H 112 H Respiratory Rate 17 12 14 Blood Pressure 138/98 H Pulse Oximetry Oxygen Delivery 11/01/24 14:15 11/01/24 14:16 11/01/24 14:33 Temperature Pulse Rate 128 H 109 H Respiratory Rate 13 10 L Blood Pressure 145/86 H Pulse Oximetry 51 L Oxygen Delivery 11/01/24 14:34 11/01/24 14:35 11/01/24 15:13 Temperature Pulse Rate 121 H 111 H 116 H Respiratory Rate 20 11 L Blood Pressure 160/104 H 160/104 H Pulse Oximetry 99 Oxygen Delivery 11/01/24 15:15 11/01/24 15:16 11/01/24 15:30 Temperature Pulse Rate 115 H 123 H 111 H Respiratory Rate 23 H 15 11 L Blood Pressure 161/108 H Pulse Oximetry 99 98 99 Oxygen Delivery 11/01/24 16:00 11/01/24 16:03 11/01/24 17:36 Temperature 98.7 F Pulse Rate 102 H 115 H Respiratory Rate 16 Blood Pressure 120/68 122/67 Pulse Oximetry 97 Oxygen Delivery Room Air 11/01/24 18:00 11/01/24 18:00 11/01/24 20:00 Temperature 97.8 F Pulse Rate 109 H 102 H 108 H Respiratory Rate 18 Blood Pressure 120/68 114/63 Pulse Oximetry 96 Oxygen Delivery 11/01/24 20:00 11/01/24 20:00 11/01/24 20:00 Temperature Pulse Rate 108 H 104 H 104 H Respiratory Rate 18 Blood Pressure 114/63 Pulse Oximetry 96 Oxygen Delivery Room Air 11/01/24 20:00 11/01/24 21:44 11/01/24 22:00 Temperature Pulse Rate 104 H 101 H 96 Respiratory Rate Blood Pressure 114/63 114/87 Pulse Oximetry Oxygen Delivery 11/01/24 22:11 11/01/24 23:45 11/02/24 00:00 Temperature 98.0 F Pulse Rate 118 H 124 H Respiratory Rate 19 Blood Pressure 114/87 105/53 L Pulse Oximetry 96 Oxygen Delivery 11/02/24 00:00 11/02/24 00:00 11/02/24 02:00 Temperature Pulse Rate 124 H 124 H 120 H Respiratory Rate 19 Blood Pressure 105/53 L Pulse Oximetry 96 Oxygen Delivery Room Air 11/02/24 02:00 11/02/24 02:00 11/02/24 04:00 Temperature 98.1 F Pulse Rate 120 H 118 H Respiratory Rate 18 Blood Pressure 114/72 114/72 115/58 L Pulse Oximetry 100 Oxygen Delivery 11/02/24 04:00 11/02/24 04:00 11/02/24 04:30 Temperature Pulse Rate 119 H 119 H 119 H Respiratory Rate 18 Blood Pressure 115/58 L Pulse Oximetry 100 Oxygen Delivery Room Air 11/02/24 05:50 11/02/24 06:00 11/02/24 06:26 Temperature Pulse Rate 104 H 104 H Respiratory Rate Blood Pressure 116/75 116/65 Pulse Oximetry Oxygen Delivery 11/02/24 08:00 11/02/24 08:00 11/02/24 08:00 Temperature 97.6 F Pulse Rate 91 123 H Respiratory Rate 16 Blood Pressure 148/80 H Pulse Oximetry 100 Oxygen Delivery Room Air 11/02/24 08:00 11/02/24 08:24 11/02/24 10:00 Temperature Pulse Rate 91 123 H 94 Respiratory Rate Blood Pressure 148/80 H 148/80 H Pulse Oximetry Oxygen Delivery 11/02/24 10:00 11/02/24 10:00 11/02/24 12:00 Temperature 97.6 F Pulse Rate 94 80 Respiratory Rate 20 Blood Pressure 124/48 L 124/48 L 94/69 L Pulse Oximetry 96 Oxygen Delivery 11/02/24 12:00 11/02/24 12:00 11/02/24 12:00 Temperature Pulse Rate 80 85 Respiratory Rate Blood Pressure 94/69 L Pulse Oximetry Oxygen Delivery Room Air Intake/Output Intake/Output: Intake & Output 10/30/24 10/31/24 11/01/24 11/02/24 23:59 23:59 23:59 23:59 Intake Total 1627.2 535.5 Output Total 2600 1300 Balance -972.8 -764.5 Meds/Results Medications: Active Medications Generic Name Dose Route Start Last Admin Trade Name Freq PRN Reason Stop Dose Admin Acetaminophen 650 mg 11/01/24 14:35 Acetaminophen 325 Mg Tablet PO Q4H PRN Mild Pain (1-3) or Fever Apixaban 5 mg 11/01/24 22:55 11/02/24 08:24 Apixaban 5 Mg Tablet PO 5 mg Q12HR CHRISSY Administration Atorvastatin Calcium 10 mg 11/02/24 09:00 11/02/24 08:24 Atorvastatin 10 Mg Tablet PO 10 mg DAILY CHRISSY Administration Dextrose 12.5 gm 11/01/24 14:35 Dextrose 50% 25 Gm/50 Ml Syringe IV PUSH PRN PRN Hypoglycemia Protocol Furosemide 40 mg 11/02/24 13:35 Furosemide 40 Mg Tablet PO DAILY CHRISSY Glucagon 1 mg 11/01/24 14:35 Glucagon For Inj 1 Mg Vial IM PRN PRN Hypoglycemia Protocol Glucose 15 gm 11/01/24 14:35 Glucose Oral Gel 15 Gm Of Glucse In 37.5 Gm Tube PO PRN PRN Hypoglycemia Protocol Hydralazine HCl 10 mg 11/01/24 15:01 Hydralazine Hcl 20 Mg/Ml Vial IV PUSH Q8H PRN Blood Pressure - High Meropenem 1 gm in 100 mls @ 200 mls/hr 11/01/24 22:00 11/02/24 13:05 IVPB 200 mls/hr Q8H CHRISSY Administration Dextrose 1,000 mls @ 100 mls/hr 11/01/24 14:35 Dextrose 5% 1,000 Ml IVPB PRN PRN Hypoglycemia Protocol Diltiazem HCl 100 mg in 100 mls @ 10 mls/hr 11/02/24 04:30 11/02/24 12:00 Cardizem 100 Mg/100 Ml IV CONT 10 mg/hr .Q10H CHRISSY 10 mls/hr Infusion 10 MG/HR Insulin Aspart 4 - 8 units 11/01/24 17:00 11/02/24 12:06 Insulin Aspart (*Bkc) 100 Units/Ml SUB-Q Not Given TIDWM [facility] Protocol Insulin Aspart 2 - 4 units 11/01/24 21:00 11/01/24 20:53 Insulin Aspart (*Bkc) 100 Units/Ml SUB-Q Not Given HS [facility] Protocol Levothyroxine Sodium 112 mcg/ 137 mcg 11/02/24 06:30 11/02/24 05:42 Levothyroxine Sodium 25 mcg PO 137 mcg DAILY@0630 CHRISSY Administration Ondansetron HCl 4 mg 11/01/24 14:35 Ondansetron Inj 4 Mg/2 Ml Vial IV PUSH Q6H PRN Nausea And Vomiting Pantoprazole Sodium 40 mg 11/02/24 09:00 11/02/24 08:24 Pantoprazole 40 Mg Tablet PO 40 mg QAM CHRISSY Administration Verapamil HCl 120 mg 11/02/24 09:00 11/02/24 08:24 Verapamil Hcl Er 120 Mg Tablet PO 120 mg DAILY CHRISSY Administration Radiology Results: ITS Impressions Chest X-Ray 11/01/24 14:50 IMPRESSION: Cardiomegaly with cardiac decompensation and pulmonary edema are highly suggestive. Superimposed pneumonitis cannot be excluded Labs Labs: Laboratory Results - last 24 hr 11/01/24 11/01/24 11/01/24 13:11 13:51 16:54 WBC 7.5 RBC 4.12 L Hgb 12.1 Hct 39.5 MCV 95.9 MCH 29.4 MCHC 30.6 L RDW 13.5 Plt Count 212 MPV 11.5 H Immature Gran % (Auto) 0.3 Neut % (Auto) 57.3 Lymph % (Auto) 30.9 Wallace % (Auto) 7.5 Eos % (Auto) 3.1 Baso % (Auto) 0.9 Lymph # (Auto) 2.31 Wallace # (Auto) 0.6 Eos # (Auto) 0.2 Baso # (Auto) 0.1 Abs Immat Gran (auto) 0.02 Absolute Neuts (auto) 4.3 Absolute Nucleated RBC 0.000 Nucleated RBC % 0.0 Sodium 138 Potassium 4.4 Chloride 109 H Carbon Dioxide 19 L Anion Gap 10 BUN 16 Creatinine 1.01 H Estim Creat Clear Calc 61 Estimated GFR 54 L Glucose 156 H POC Capillary Glucose 138 H Calcium 9.1 Magnesium 1.6 Total Bilirubin 0.3 AST 18 ALT 15 Alkaline Phosphatase 69 NT-Pro-B Natriuret Pep 1990 H Total Protein 7.0 Albumin 3.9 TSH (Reflex) 0.792 Urine Color Yellow Urine Appearance Sl cloudy Urine pH 6.0 Ur Specific [place] 1.010 Urine Protein Negative Urine Glucose (UA) Negative Urine Ketones Negative Ur Blood (Man) Negative Urine Nitrate Positive H Urine Bilirubin Negative Urine Urobilinogen 0.2 Leukocyte Esterase Rfl 1+ H Urine RBC 0-2 Urine WBC 6-10 H Ur Squamous Epith Cells Occasional Urine Bacteria 4+ H Urine Casts 0-2 Influenza A (RT-PCR) Negative Influenza B (RT-PCR) Negative RSV (RT-PCR) Negative SARS-CoV-2 RNA (RT-PCR) Negative 11/01/24 11/02/24 11/02/24 20:14 04:38 07:52 WBC 8.1 RBC 4.44 Hgb 12.9 Hct 40.9 MCV 92.1 MCH 29.1 MCHC 31.5 L RDW 13.5 Plt Count 225 MPV 11.1 H Immature Gran % (Auto) 0.4 Neut % (Auto) 54.1 Lymph % (Auto) 32.5 Wallace % (Auto) 8.3 Eos % (Auto) 4.0 Baso % (Auto) 0.7 Lymph # (Auto) 2.63 Wallace # (Auto) 0.7 H Eos # (Auto) 0.3 Baso # (Auto) 0.1 Abs Immat Gran (auto) 0.03 Absolute Neuts (auto) 4.4 Absolute Nucleated RBC 0.000 Nucleated RBC % 0.0 Sodium 140 Potassium 3.7 Chloride 105 Carbon Dioxide 24 Anion Gap 11 BUN 15 Creatinine 0.95 Estim Creat Clear Calc 65 Estimated GFR 58 L Glucose 155 H POC Capillary Glucose 143 H 180 H Calcium 9.1 Magnesium Total Bilirubin 0.6 AST 20 ALT 15 Alkaline Phosphatase 77 NT-Pro-B Natriuret Pep Total Protein 7.0 Albumin 4.1 TSH (Reflex) Urine Color Urine Appearance Urine pH Ur Specific [place] Urine Protein Urine Glucose (UA) Urine Ketones Ur Blood (Man) Urine Nitrate Urine Bilirubin Urine Urobilinogen Leukocyte Esterase Rfl Urine RBC Urine WBC Ur Squamous Epith Cells Urine Bacteria Urine Casts Influenza A (RT-PCR) Influenza B (RT-PCR) RSV (RT-PCR) SARS-CoV-2 RNA (RT-PCR) 11/02/24 11:20 WBC RBC Hgb Hct MCV MCH MCHC RDW Plt Count MPV Immature Gran % (Auto) Neut % (Auto) Lymph % (Auto) Wallace % (Auto) Eos % (Auto) Baso % (Auto) Lymph # (Auto) Wallace # (Auto) Eos # (Auto) Baso # (Auto) Abs Immat Gran (auto) Absolute Neuts (auto) Absolute Nucleated RBC Nucleated RBC % Sodium Potassium Chloride Carbon Dioxide Anion Gap BUN Creatinine Estim Creat Clear Calc Estimated GFR Glucose POC Capillary Glucose 151 H Calcium Magnesium Total Bilirubin AST ALT Alkaline Phosphatase NT-Pro-B Natriuret Pep Total Protein Albumin TSH (Reflex) Urine Color Urine Appearance Urine pH Ur Specific [place] Urine Protein Urine Glucose (UA) Urine Ketones Ur Blood (Man) Urine Nitrate Urine Bilirubin Urine Urobilinogen Leukocyte Esterase Rfl Urine RBC Urine WBC Ur Squamous Epith Cells Urine Bacteria Urine Casts Influenza A (RT-PCR) Influenza B (RT-PCR) RSV (RT-PCR) SARS-CoV-2 RNA (RT-PCR) Quality VTE Prophylaxis VTE prophylaxis: pharmacologic ordered
[2024-11-02] MEDS: FUROSEMIDE 40 MG TABLET PO (14:52)
[2024-11-02] MEDS: dilTIAZem 100 MG/100 ML 100 MG/100 ML BAG 10 MG IV CONT (16:52)
[2024-11-02 18:14] LABS: Glucose Point of Care 125 mg/dl (65-105)
[2024-11-02 19:50] LABS: Glucose Point of Care 165 mg/dl (65-105)
[2024-11-02] MEDS: METOPROLOL TARTRATE 25 MG TABLET PO (20:22)
[2024-11-02] MEDS: MELATONIN 5 MG TABLET PO (22:14)
[2024-11-03] VITALS (23 sets, daily range): BP systolic 104–145; BP diastolic 57–97; PULSE 58–117; RESP 17–22; TEMP 36.3–37.1; O2SAT 90–98
[2024-11-03] MEDS: dilTIAZem 100 MG/100 ML 100 MG/100 ML BAG 10 MG IV CONT ×3 (02:09→21:28)
[2024-11-03 04:38] LABS: Basophils Absolute Auto 0.1 K/mm3 (0.0-0.1); Basophils Percent Auto 0.8 % (0.2-1.2); Eosinophils Absolute Auto 0.3 K/mm3 (0-0.3); Eosinophils Percent Auto 3.5 % (0-4.4); Hematocrit 39.9 % (37.0-47.0); Hemoglobin 12.6 g/dL (12.0-15.0); Immature Granulocyte Absolute 0.02 K/mm3 (0.00-0.031); Immature Granulocyte Percent A 0.3 % (0-0.5); Lymphocytes Absolute Auto 2.82 K/mm3 (0.9-3.2); Lymphocytes Percent Auto 37.7 % (18.3-44.2); Mean Corpuscular HGB Conc 31.6 g/dl (32-36); Mean Corpuscular Hemoglobin 29.4 pg (26-34); Mean Corpuscular Volume 93.2 fl (80-100); Mean Platelet Volume 11.7 fl (7.4-10.4); Monocytes Absolute Auto 0.6 K/mm3 (0.1-0.6); Monocytes Percent Auto 7.7 % (2.6-8.5); Neutrophils Absolute Auto 3.8 K/mm3 (1.3-6.7); Platelet Count Result 224 k/mm3 (150-375); Red Blood Count 4.28 M/mm3 (4.2-5.4); Red Cell Distribution Width 13.5 % (11.5-14.5); White Blood Count 7.5 K/mm3 (4.5-10.0)
[2024-11-03 04:50] LABS: Alanine Aminotransferase 15 U/L (6-35); Albumin Level 3.8 g/dL (3.5-5.1); Alkaline Phosphatase 76 U/L (38-126); Anion Gap 10 mmol/L (4-12); Aspartate Amino Transferase 19 U/L (14-36); Bilirubin,Total 0.6 mg/dL (0.2-1.3); Blood Urea Nitrogen 16 mg/dL (7-17); Calcium 8.8 mg/dL (8.4-10.2); Carbon Dioxide 25 mmol/L (22-30); Chloride 102 mmol/L (98-107); Estimated CRCL calculation 61 ml/min; Estimated Glomerular Filt Rate 54; Glucose 151 mg/dL (65-110); Potassium 3.6 mmol/L (3.4-5.0); Sodium 137 mmol/L (137-145)
[2024-11-03] MEDS: LEVOTHYROXINE SODIUM 112 MCG, LEVOTHYROXINE SODIUM 25 MCG 137 MCG PO (05:29)
[2024-11-03] MEDS: MEROPENEM 1 GM/NS 100 ML 1 GM/100 ML BAG IVPB (05:30)
[2024-11-03] MEDS: FUROSEMIDE 40 MG TABLET PO (08:51)
[2024-11-03] MEDS: PANTOPRAZOLE 40 MG TABLET PO (08:51)
[2024-11-03] MEDS: ATORVASTATIN 10 MG TABLET PO (08:52)
[2024-11-03] MEDS: METOPROLOL TARTRATE 25 MG TABLET PO (08:52)
[2024-11-03] MEDS: VERAPAMIL HCL ER 120 MG TABLET PO (08:52)
[2024-11-03] MEDS: APIXABAN 5 MG TABLET PO ×2 (08:52→21:19)
[2024-11-03 09:19] LABS: Glucose Point of Care 165 mg/dl (65-105)
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
--- NOTE | 2024-11-03 10:56 | P.PNIM_ITS ---
Progress Note: A&P Assessment and Plan (1) Atrial fibrillation with rapid ventricular response: Code(s): I48.91 - Unspecified atrial fibrillation Status: Acute Assessment and Plan: Patient has history of AFib and sees Dr. Davis on an outpatient basis * Patient was also given 25 mg metoprolol succinate and 5 mg IV push metoprolol tartrate while in the ED * Continue cardiac monitoring * Chest x-ray shown cardiomegaly with cardiac decompensation and pulmonary edema * Patient was given a dose of 40 mg IV push Lasix * Continue IMU status * Cardiology consulted and plans to start Sotalol tonight for rate control. * Continue Cardizem infusion * Continue Eliquis (2) Urinary tract infection: Code(s): N39.0 - Urinary tract infection, site not specified Status: Acute Assessment and Plan: * UA showed positive nitrate, 1+ leukocyte, 6-10 urine WBC, 4+ urine bacteria * Urine culture showing E coli on preliminary read * Previous culture reviewed showing E coli and Klebsiella pneumoniae with marked resistance * Meropenem changed to Macrobid per ID pharmacy recommendation (3) CHF (congestive heart failure): Code(s): I50.9 - Heart failure, unspecified Status: Acute Assessment and Plan: Diastolic dysfunction * Previous echo from 09/28/2023 shown normal LV systolic function with an estimated EF of 60-65%, grade 1 diastolic dysfunction * Patient was given 40 mg IV push Lasix on admission * Continue Lasix 40 mg daily * Chest x-ray showing cardiomegaly with cardiac decompensation and pulmonary edema (4) Type 2 diabetes mellitus: Code(s): E11.9 - Type 2 diabetes mellitus without complications Status: Acute Assessment and Plan: * Blood sugar 155-180 * Hgb A1C 6.9 on 09/05/2024 * Accu checks AC/HS * High-dose SSI ordered * hypoglycemic protocol in place * Diabetic diet ordered (5) Essential (primary) hypertension: Code(s): I10 - Essential (primary) hypertension Status: Acute Assessment and Plan: * Blood pressure ranging 133/87 to 160/104 * Continue verapamil * Hydralazine ordered for systolic greater than 160 (6) Chronic kidney disease, stage 3 (moderate): Code(s): N18.3 - Chronic kidney disease, stage 3 (moderate) Status: Acute Assessment and Plan: * Creatinine 1.01, EGFR 54 which is below patient's baseline * Baseline appears to be 1.20-1.7 on previous labs * Continue to trend (7) Mixed hyperlipidemia: Code(s): E78.2 - Mixed hyperlipidemia Status: Acute Assessment and Plan: * Continue atorvastatin (8) GERD (gastroesophageal reflux disease): Code(s): K21.9 - Gastro-esophageal reflux disease without esophagitis Status: Acute Assessment and Plan: * Start Protonix (9) Morbid obesity: Code(s): E66.01 - Morbid (severe) obesity due to excess calories Status: Acute Assessment and Plan: * BMI 37.6, 115.5 kg * Educate on diet and exercise program Time Spent With Patient Time with patient: 15 - 25 minutes Subjective Date/time seen: 11/03/24 10:56 Interval history: Interval history: This is a 69-year-old female with a significant past medical history of TIA, CVA with residual right-sided weakness, atrial fibrillation, morbid obesity, chronic kidney disease stage 3, hyperlipidemia, hypertension, type 2 diabetes mellitus, cataracts status post cataract extraction, vitamin-D deficiency, osteoarthritis who presented to the hospital with complaints of AFib RVR. Patient states that she noticed increased shortness of breath when she got dressed this morning to go to her doctor's appointment. She states that it felt like her heart was racing. At her doctor's office they found that she was in AFib and told her to take another 25 mg of her metoprolol however she decided to present here for further evaluation. She is followed by Dr. Davis carcass splitter on an outpatient basis. She denies any recent illness, fever, chills, nausea, vomiting, diarrhea, abdominal pain, chest pain. Workup in the hospital included initial labs which showed a normal white blood cell count of 7.5, bicarb 19, creatinine 1.01, EGFR 54, blood sugar 156 with last hemoglobin A1c 6.9 on 09/05/2024. UA was obtained which showed positive nitrate, 1+ leukocyte, 6-10 urine WBC, 4+ urine bacteria. Urine culture was obtained and pending. EKG showing AFib with RVR with a rate of 127, QTC 438. Patient was given 5 mg IV push buttock and 25 mg metoprolol succinate while in the ED with little response to control in the heart rate. Patient was also given 1 L of LR, Cardizem bolus with infusion. She was also started on meropenem considering she has had ESBL in the past. Subjective: Patient states she slept better last night. She denies any new complaints today. Labs reviewed. Review of Systems Review of Systems: All systems reviewed & are unremarkable except as noted in HPI and below Exam Narrative: General: In no acute distress, well nourished Cardiac: Normal S1 and S2. Irregular rhythm No murmur, gallops or friction rubs, peripheral pulses intact. Respiratory: Lungs clear to auscultation, no adventitious lung sounds, currently on room air Gastrointestinal: soft, non-distended, non-tender, normoactive bowel sounds. : voiding without difficulty. Neuro: Alert and oriented x4 Objective Data Vital Signs Vital Signs: Vital Signs - 24 hr 11/02/24 12:00 11/02/24 12:00 11/02/24 12:00 Temperature 97.6 F Pulse Rate 80 80 Respiratory Rate 20 Blood Pressure 94/69 L 94/69 L Pulse Oximetry 96 Oxygen Delivery Room Air 11/02/24 12:00 11/02/24 14:00 11/02/24 14:00 Temperature Pulse Rate 85 60 60 Respiratory Rate Blood Pressure 135/81 135/81 Pulse Oximetry 95 Oxygen Delivery 11/02/24 14:00 11/02/24 16:00 11/02/24 16:00 Temperature 98.2 F Pulse Rate 84 75 75 Respiratory Rate 18 Blood Pressure 129/57 L 129/57 L Pulse Oximetry 97 Oxygen Delivery 11/02/24 16:00 11/02/24 16:00 11/02/24 16:27 Temperature Pulse Rate 120 H 103 H Respiratory Rate Blood Pressure Pulse Oximetry Oxygen Delivery Room Air 11/02/24 16:52 11/02/24 18:00 11/02/24 18:00 Temperature Pulse Rate 103 H 74 74 Respiratory Rate Blood Pressure 121/57 L 121/57 L Pulse Oximetry 98 Oxygen Delivery 11/02/24 18:00 11/02/24 19:42 11/02/24 20:00 Temperature 97.7 F Pulse Rate 98 94 101 H Respiratory Rate 17 17 Blood Pressure 137/72 Pulse Oximetry 97 97 Oxygen Delivery Room Air 11/02/24 20:00 11/02/24 20:00 11/02/24 20:22 Temperature Pulse Rate 101 H 101 H 108 H Respiratory Rate Blood Pressure 137/42 L Pulse Oximetry Oxygen Delivery 11/02/24 22:00 11/02/24 22:00 11/02/24 22:00 Temperature Pulse Rate 104 H 98 98 Respiratory Rate Blood Pressure 133/59 L 133/59 L Pulse Oximetry Oxygen Delivery 11/02/24 23:54 11/03/24 00:00 11/03/24 00:00 Temperature 97.7 F Pulse Rate 94 101 H 101 H Respiratory Rate 18 18 Blood Pressure 125/69 Pulse Oximetry 98 98 Oxygen Delivery Room Air 11/03/24 00:00 11/03/24 02:00 11/03/24 02:00 Temperature Pulse Rate 101 H 83 89 Respiratory Rate Blood Pressure 125/69 132/64 Pulse Oximetry Oxygen Delivery 11/03/24 02:09 11/03/24 02:09 11/03/24 03:43 Temperature 98.4 F Pulse Rate 89 89 102 H Respiratory Rate 17 Blood Pressure 132/64 132/64 139/89 Pulse Oximetry 97 Oxygen Delivery 11/03/24 04:00 11/03/24 04:00 11/03/24 04:00 Temperature Pulse Rate 101 H 101 H 102 H Respiratory Rate 17 Blood Pressure 139/83 Pulse Oximetry 97 Oxygen Delivery Room Air 11/03/24 05:48 11/03/24 05:56 11/03/24 06:00 Temperature Pulse Rate 102 H 117 H 117 H Respiratory Rate 18 Blood Pressure 128/67 128/67 Pulse Oximetry Oxygen Delivery 11/03/24 08:00 11/03/24 08:52 11/03/24 09:10 Temperature 97.4 F L Pulse Rate 78 105 H Respiratory Rate 20 Blood Pressure 145/71 H Pulse Oximetry 94 94 Oxygen Delivery Room Air Intake/Output Intake/Output: Intake & Output 10/31/24 11/01/24 11/02/24 11/03/24 23:59 23:59 23:59 23:59 Intake Total 1627.2 2021.3 500.0 Output Total 2600 3050 550 Balance -972.8 -1028.7 -50.0 Meds/Results Medications: Active Medications Generic Name Dose Route Start Last Admin Trade Name Freq PRN Reason Stop Dose Admin Acetaminophen 650 mg 11/01/24 14:35 Acetaminophen 325 Mg Tablet PO Q4H PRN Mild Pain (1-3) or Fever Apixaban 5 mg 11/01/24 22:55 11/03/24 08:52 Apixaban 5 Mg Tablet PO 5 mg Q12HR CHRISSY Administration Atorvastatin Calcium 10 mg 11/02/24 09:00 11/03/24 08:52 Atorvastatin 10 Mg Tablet PO 10 mg DAILY CHRISSY Administration Dextrose 12.5 gm 11/01/24 14:35 Dextrose 50% 25 Gm/50 Ml Syringe IV PUSH PRN PRN Hypoglycemia Protocol Furosemide 40 mg 11/02/24 13:35 11/03/24 08:51 Furosemide 40 Mg Tablet PO 40 mg DAILY CHRISSY Administration Glucagon 1 mg 11/01/24 14:35 Glucagon For Inj 1 Mg Vial IM PRN PRN Hypoglycemia Protocol Glucose 15 gm 11/01/24 14:35 Glucose Oral Gel 15 Gm Of Glucse In 37.5 Gm Tube PO PRN PRN Hypoglycemia Protocol Hydralazine HCl 10 mg 11/01/24 15:01 Hydralazine Hcl 20 Mg/Ml Vial IV PUSH Q8H PRN Blood Pressure - High Dextrose 1,000 mls @ 100 mls/hr 11/01/24 14:35 Dextrose 5% 1,000 Ml IVPB PRN PRN Hypoglycemia Protocol Diltiazem HCl 100 mg in 100 mls @ 10 mls/hr 11/02/24 04:30 11/03/24 06:00 Cardizem 100 Mg/100 Ml IV CONT 10 mg/hr .Q10H CHRISSY 10 mls/hr Infusion 10 MG/HR Insulin Aspart 4 - 8 units 11/01/24 17:00 11/03/24 09:44 Insulin Aspart (*Bkc) 100 Units/Ml SUB-Q Not Given TIDWM [facility] Protocol Insulin Aspart 2 - 4 units 11/01/24 21:00 11/02/24 20:22 Insulin Aspart (*Bkc) 100 Units/Ml SUB-Q Not Given HS [facility] Protocol Levothyroxine Sodium 112 mcg/ 137 mcg 11/02/24 06:30 11/03/24 05:29 Levothyroxine Sodium 25 mcg PO 137 mcg DAILY@0630 CRHISSY Administration Melatonin 5 mg 11/02/24 21:00 11/02/24 22:14 Melatonin 5 Mg Tablet PO 5 mg HS CHRISSY Administration Nitrofurantoin Macrocrystals 100 mg 11/03/24 12:00 Nitrofurantoin Monohyd Macrocr 100 Mg Cap PO 11/07/24 21:01 Q12HR CHRISSY Ondansetron HCl 4 mg 11/01/24 14:35 Ondansetron Inj 4 Mg/2 Ml Vial IV PUSH Q6H PRN Nausea And Vomiting Pantoprazole Sodium 40 mg 11/02/24 09:00 11/03/24 08:51 Pantoprazole 40 Mg Tablet PO 40 mg QAM CHRISSY Administration Sotalol HCl 80 mg 11/03/24 09:50 Sotalol Hcl 80 Mg Tablet PO Q12HR [facility] Radiology Results: ITS Impressions Chest X-Ray 11/01/24 14:50 IMPRESSION: Cardiomegaly with cardiac decompensation and pulmonary edema are highly suggestive. Superimposed pneumonitis cannot be excluded Labs Labs: Laboratory Results - last 24 hr 11/02/24 11/02/24 11/02/24 11:20 16:10 19:47 WBC RBC Hgb Hct MCV MCH MCHC RDW Plt Count MPV Immature Gran % (Auto) Neut % (Auto) Lymph % (Auto) [place] % (Auto) Eos % (Auto) Baso % (Auto) Lymph # (Auto) [place] # (Auto) Eos # (Auto) Baso # (Auto) Abs Immat Gran (auto) Absolute Neuts (auto) Absolute Nucleated RBC Nucleated RBC % Sodium Potassium Chloride Carbon Dioxide Anion Gap BUN Creatinine Estim Creat Clear Calc Estimated GFR Glucose POC Capillary Glucose 151 H 125 H 165 H Calcium Total Bilirubin AST ALT Alkaline Phosphatase Total Protein Albumin 11/03/24 11/03/24 04:03 07:41 WBC 7.5 RBC 4.28 Hgb 12.6 Hct 39.9 MCV 93.2 MCH 29.4 MCHC 31.6 L RDW 13.5 Plt Count 224 MPV 11.7 H Immature Gran % (Auto) 0.3 Neut % (Auto) 50.0 Lymph % (Auto) 37.7 [place] % (Auto) 7.7 Eos % (Auto) 3.5 Baso % (Auto) 0.8 Lymph # (Auto) 2.82 [place] # (Auto) 0.6 Eos # (Auto) 0.3 Baso # (Auto) 0.1 Abs Immat Gran (auto) 0.02 Absolute Neuts (auto) 3.8 Absolute Nucleated RBC 0.000 Nucleated RBC % 0.0 Sodium 137 Potassium 3.6 Chloride 102 Carbon Dioxide 25 Anion Gap 10 BUN 16 Creatinine 1.01 H Estim Creat Clear Calc 61 Estimated GFR 54 L Glucose 151 H POC Capillary Glucose 165 H Calcium 8.8 Total Bilirubin 0.6 AST 19 ALT 15 Alkaline Phosphatase 76 Total Protein 7.0 Albumin 3.8 Quality VTE Prophylaxis VTE prophylaxis: pharmacologic ordered
[2024-11-03 11:34] LABS: Glucose Point of Care 187 mg/dl (65-105)
[2024-11-03 11:54] LABS: Magnesium 1.5 mg/dL (1.6-2.3)
[2024-11-03] MEDS: NITROFURANTOIN MONOHYD MACROCR 100 MG CAP PO ×2 (12:01→21:19)
[2024-11-03] MEDS: SOTALOL HCL 80 MG TABLET PO ×2 (12:16→21:19)
--- NOTE | 2024-11-03 12:53 | PC.NURSE ---
On 11/03/24, the student, [Alice Villaseñor], provided care and completed [facility] documentation on this patient. I have reviewed the student's documentation and agree with the findings.
--- NOTE | 2024-11-03 14:00 | ECG_ITS ---
Test Date: 2024-11-03 14:09:18 Measurements Intervals [place] Rate: 73 P: 0 W[place]: 0 QRS: 5 QRSD: 79 T: 28 QT: 408 QTc: 452 Interpretive Statements ATRIAL FLUTTER/TACHYCARDIA ABNORMAL RHYTHM ECG Compared to ECG 11/01/2024 11:28:22 Atrial fibrillation no longer present Left ventricular hypertrophy no longer present ST (T wave) deviation no longer present Electronically Signed On 11-04-2024 18:59:11 CDT by Matthew Huerta
[2024-11-03 17:24] LABS: Glucose Point of Care 144 mg/dl (65-105)
[2024-11-03 20:04] LABS: Glucose Point of Care 144 mg/dl (65-105)
[2024-11-03] MEDS: MELATONIN 5 MG TABLET PO (21:20)
--- NOTE | 2024-11-03 23:30 | ECG_ITS ---
Test Date: 2024-11-03 23:59:59 Measurements Intervals [place] Rate: 89 P: 0 MD: 0 QRS: -3 QRSD: 81 T: 10 QT: 416 QTc: 508 Interpretive Statements ATRIAL FLUTTER WITH VARIABLE BLOCK NONSPECIFIC ST & T-WAVE ABNORMALITY ABNORMAL RHYTHM ECG Compared to ECG 11/03/2024 14:09:18 T-wave abnormality now present Electronically Signed On 11-04-2024 19:08:22 CDT by Matthew Huerta
[2024-11-04] VITALS (21 sets, daily range): BP systolic 110–144; BP diastolic 52–87; PULSE 61–110; RESP 16–20; TEMP 36.6–36.9; O2SAT 93–98
[2024-11-04 04:39] LABS: Basophils Absolute Auto 0.1 K/mm3 (0.0-0.1); Basophils Percent Auto 0.8 % (0.2-1.2); Eosinophils Absolute Auto 0.2 K/mm3 (0-0.3); Eosinophils Percent Auto 2.2 % (0-4.4); Hematocrit 39.5 % (37.0-47.0); Immature Granulocyte Absolute 0.02 K/mm3 (0.00-0.031); Immature Granulocyte Percent A 0.3 % (0-0.5); Lymphocytes Absolute Auto 2.47 K/mm3 (0.9-3.2); Lymphocytes Percent Auto 31.8 % (18.3-44.2); Mean Corpuscular HGB Conc 32.9 g/dl (32-36); Mean Corpuscular Hemoglobin 29.9 pg (26-34); Mean Corpuscular Volume 90.8 fl (80-100); Mean Platelet Volume 11.2 fl (7.4-10.4); Monocytes Absolute Auto 0.7 K/mm3 (0.1-0.6); Monocytes Percent Auto 8.9 % (2.6-8.5); Neutrophils Absolute Auto 4.4 K/mm3 (1.3-6.7); Platelet Count Result 228 k/mm3 (150-375); Red Blood Count 4.35 M/mm3 (4.2-5.4); Red Cell Distribution Width 13.2 % (11.5-14.5); White Blood Count 7.8 K/mm3 (4.5-10.0)
[2024-11-04 04:47] LABS: Alanine Aminotransferase 17 U/L (6-35); Albumin Level 3.9 g/dL (3.5-5.1); Alkaline Phosphatase 80 U/L (38-126); Anion Gap 8 mmol/L (4-12); Aspartate Amino Transferase 21 U/L (14-36); Bilirubin,Total 0.7 mg/dL (0.2-1.3); Blood Urea Nitrogen 22 mg/dL (7-17); Calcium 8.8 mg/dL (8.4-10.2); Carbon Dioxide 27 mmol/L (22-30); Chloride 100 mmol/L (98-107); Estimated CRCL calculation 54 ml/min; Estimated Glomerular Filt Rate 47; Glucose 164 mg/dL (65-110); Magnesium 1.6 mg/dL (1.6-2.3); Potassium 3.7 mmol/L (3.4-5.0); Sodium 135 mmol/L (137-145)
[2024-11-04] MEDS: LEVOTHYROXINE SODIUM 112 MCG, LEVOTHYROXINE SODIUM 25 MCG 137 MCG PO (05:55)
--- NOTE | 2024-11-04 07:11 | P.PNCA_ITS ---
Progress Note: A&P Assessment and Plan (1) PAF (paroxysmal atrial fibrillation): Code(s): I48.0 - Paroxysmal atrial fibrillation Status: Acute Assessment and Plan: On Cardizem drip for rate control now. On Eliquis. Start Sotalol 80 mg BID per protocol on 11/03/24l, checking EKG with each dose for 5 doses. (2) Essential (primary) hypertension: Code(s): I10 - Essential (primary) hypertension Status: Acute Assessment and Plan: Stable. (3) Mixed hyperlipidemia: Code(s): E78.2 - Mixed hyperlipidemia Status: Acute Assessment and Plan: On Atorvastatin. (4) CHF (congestive heart failure): Code(s): I50.9 - Heart failure, unspecified Status: Acute Assessment and Plan: Acute on chronic diastolic heart failure. On Lasix 40 mg PO daily. (5) Urinary tract infection: Code(s): N39.0 - Urinary tract infection, site not specified Status: Acute Assessment and Plan: On antibiotics. Subjective Date/time seen: 11/04/24 07:11 Interval history: Denies chest pain or sob. Exam Const: General: cooperative, healthy appearing and comfortable Orientation/consciousness: oriented to person, oriented to place and oriented to time Resp: Auscultation: clear to auscultation bilaterally, no crackles, no rales, no rhonchi and no wheezes Cardio: Rate: regular rate Rhythm: abnormal rhythm Heart sounds: no murmurs Peripheral pulses: dorsalis pedis present Neuro: General: oriented to person, oriented to place and oriented to time Extrem: Right lower extremity: no edema Left lower extremity: no edema Objective Data Vital Signs Vital Signs: Vital Signs - 24 hr 11/03/24 08:00 11/03/24 08:00 11/03/24 08:00 Temperature 97.4 F L Pulse Rate 78 101 H Respiratory Rate 20 Blood Pressure 145/71 H Pulse Oximetry 94 Oxygen Delivery Room Air 11/03/24 08:00 11/03/24 08:52 11/03/24 09:10 Temperature Pulse Rate 78 105 H Respiratory Rate Blood Pressure 145/71 H Pulse Oximetry 94 Oxygen Delivery Room Air 11/03/24 09:15 11/03/24 10:00 11/03/24 10:00 Temperature Pulse Rate 98 100 Respiratory Rate 20 Blood Pressure 104/57 L Pulse Oximetry 97 Oxygen Delivery Room Air 11/03/24 10:00 11/03/24 12:00 11/03/24 12:00 Temperature 97.4 F L Pulse Rate 90 58 L 92 Respiratory Rate 20 Blood Pressure 104/57 L 126/62 Pulse Oximetry 90 Oxygen Delivery 11/03/24 12:09 11/03/24 12:15 11/03/24 12:16 Temperature Pulse Rate 96 96 96 Respiratory Rate Blood Pressure 126/62 126/62 Pulse Oximetry Oxygen Delivery 11/03/24 14:00 11/03/24 14:00 11/03/24 14:00 Temperature Pulse Rate 72 75 75 Respiratory Rate 18 Blood Pressure 125/73 125/73 Pulse Oximetry 96 Oxygen Delivery 11/03/24 15:41 11/03/24 16:00 11/03/24 16:00 Temperature 98.1 F Pulse Rate 93 79 Respiratory Rate 22 H Blood Pressure 145/76 H Pulse Oximetry 98 Oxygen Delivery Room Air 11/03/24 16:00 11/03/24 18:00 11/03/24 18:00 Temperature Pulse Rate 93 74 88 Respiratory Rate 18 Blood Pressure 145/76 H 129/67 Pulse Oximetry 94 Oxygen Delivery 11/03/24 18:00 11/03/24 20:00 11/03/24 20:00 Temperature 98.7 F Pulse Rate 88 73 92 Respiratory Rate 18 Blood Pressure 129/67 121/97 H 121/97 H Pulse Oximetry 96 Oxygen Delivery 11/03/24 20:00 11/03/24 20:00 11/03/24 21:19 Temperature Pulse Rate 92 92 92 Respiratory Rate 18 Blood Pressure Pulse Oximetry 96 Oxygen Delivery Room Air 11/03/24 21:28 11/03/24 21:28 11/03/24 21:55 Temperature Pulse Rate 90 90 90 Respiratory Rate Blood Pressure 121/73 121/73 Pulse Oximetry Oxygen Delivery 11/03/24 21:55 11/04/24 00:00 11/04/24 00:00 Temperature 98.2 F Pulse Rate 90 110 H 95 Respiratory Rate 16 16 Blood Pressure 121/73 117/87 Pulse Oximetry 96 96 Oxygen Delivery Room Air 11/04/24 00:00 11/04/24 00:00 11/04/24 02:00 Temperature Pulse Rate 95 110 H 97 Respiratory Rate Blood Pressure 117/87 111/52 L Pulse Oximetry Oxygen Delivery 11/04/24 02:00 11/04/24 02:00 11/04/24 04:00 Temperature 98.3 F Pulse Rate 88 97 98 Respiratory Rate 16 Blood Pressure 111/52 L 110/64 Pulse Oximetry 93 Oxygen Delivery 11/04/24 04:00 11/04/24 04:00 11/04/24 04:00 Temperature Pulse Rate 87 87 87 Respiratory Rate 16 Blood Pressure 110/64 Pulse Oximetry 93 Oxygen Delivery Room Air 11/04/24 06:00 11/04/24 06:00 11/04/24 06:01 Temperature Pulse Rate 92 92 92 Respiratory Rate Blood Pressure 114/72 114/72 Pulse Oximetry Oxygen Delivery Intake/Output Intake/Output: Intake & Output 11/01/24 11/02/24 11/03/24 11/04/24 23:59 23:59 23:59 23:59 Intake Total 1627.2 2021.3 1733.7 735.5 Output Total 2600 3050 1450 1600 Balance -972.8 -1028.7 283.7 -864.5 Meds/Results Medications: Active Medications Generic Name Dose Route Start Last Admin Trade Name Freq PRN Reason Stop Dose Admin Acetaminophen 650 mg 11/01/24 14:35 Acetaminophen 325 Mg Tablet PO Q4H PRN Mild Pain (1-3) or Fever Apixaban 5 mg 11/01/24 22:55 11/03/24 21:19 Apixaban 5 Mg Tablet PO 5 mg Q12HR CHRISSY Administration Atorvastatin Calcium 10 mg 11/02/24 09:00 11/03/24 08:52 Atorvastatin 10 Mg Tablet PO 10 mg DAILY CHRISSY Administration Dextrose 12.5 gm 11/01/24 14:35 Dextrose 50% 25 Gm/50 Ml Syringe IV PUSH PRN PRN Hypoglycemia Protocol Furosemide 40 mg 11/02/24 13:35 11/03/24 08:51 Furosemide 40 Mg Tablet PO 40 mg DAILY CHRISSY Administration Glucagon 1 mg 11/01/24 14:35 Glucagon For Inj 1 Mg Vial IM PRN PRN Hypoglycemia Protocol Glucose 15 gm 11/01/24 14:35 Glucose Oral Gel 15 Gm Of Glucse In 37.5 Gm Tube PO PRN PRN Hypoglycemia Protocol Hydralazine HCl 10 mg 11/01/24 15:01 Hydralazine Hcl 20 Mg/Ml Vial IV PUSH Q8H PRN Blood Pressure - High Dextrose 1,000 mls @ 100 mls/hr 11/01/24 14:35 Dextrose 5% 1,000 Ml IVPB PRN PRN Hypoglycemia Protocol Diltiazem HCl 100 mg in 100 mls @ 10 mls/hr 11/02/24 04:30 11/04/24 06:01 Cardizem 100 Mg/100 Ml IV CONT 10 mg/hr .Q10H CHRISSY 10 mls/hr Infusion 10 MG/HR Insulin Aspart 4 - 8 units 11/01/24 17:00 11/03/24 17:30 Insulin Aspart (*Bkc) 100 Units/Ml SUB-Q Not Given TIDWM CHRISSY Protocol Insulin Aspart 2 - 4 units 11/01/24 21:00 11/03/24 20:57 Insulin Aspart (*Bkc) 100 Units/Ml SUB-Q Not Given HS CHRISSY Protocol Levothyroxine Sodium 112 mcg/ 137 mcg 11/02/24 06:30 11/04/24 05:55 Levothyroxine Sodium 25 mcg PO 137 mcg DAILY@0630 CHRISSY Administration Melatonin 5 mg 11/02/24 21:00 11/03/24 21:20 Melatonin 5 Mg Tablet PO 5 mg HS CHRISSY Administration Nitrofurantoin Macrocrystals 100 mg 11/03/24 12:00 11/03/24 21:19 Nitrofurantoin Monohyd Macrocr 100 Mg Cap PO 11/07/24 21:01 100 mg Q12HR CHRISSY Administration Ondansetron HCl 4 mg 11/01/24 14:35 Ondansetron Inj 4 Mg/2 Ml Vial IV PUSH Q6H PRN Nausea And Vomiting Pantoprazole Sodium 40 mg 11/02/24 09:00 11/03/24 08:51 Pantoprazole 40 Mg Tablet PO 40 mg QAM CHRISSY Administration Sotalol HCl 80 mg 11/03/24 12:10 11/03/24 21:19 Sotalol Hcl 80 Mg Tablet PO 80 mg Q12HR CHRISSY Administration Radiology Results: ITS Impressions Chest X-Ray 11/01/24 14:50 IMPRESSION: Cardiomegaly with cardiac decompensation and pulmonary edema are highly suggestive. Superimposed pneumonitis cannot be excluded Labs Labs: Laboratory Results - last 24 hr 11/03/24 11/03/24 11/03/24 03:58 07:41 11:20 WBC RBC Hgb Hct MCV MCH MCHC RDW Plt Count MPV Immature Gran % (Auto) Neut % (Auto) Lymph % (Auto) [place] % (Auto) Eos % (Auto) Baso % (Auto) Lymph # (Auto) [place] # (Auto) Eos # (Auto) Baso # (Auto) Abs Immat Gran (auto) Absolute Neuts (auto) Absolute Nucleated RBC Nucleated RBC % Sodium Potassium Chloride Carbon Dioxide Anion Gap BUN Creatinine Estim Creat Clear Calc Estimated GFR Glucose POC Capillary Glucose 165 H 187 H Calcium Magnesium 1.5 L Total Bilirubin AST ALT Alkaline Phosphatase Total Protein Albumin 11/03/24 11/03/24 11/04/24 16:03 19:54 04:16 WBC 7.8 RBC 4.35 Hgb 13.0 Hct 39.5 MCV 90.8 MCH 29.9 MCHC 32.9 RDW 13.2 Plt Count 228 MPV 11.2 H Immature Gran % (Auto) 0.3 Neut % (Auto) 56.0 Lymph % (Auto) 31.8 [place] % (Auto) 8.9 H Eos % (Auto) 2.2 Baso % (Auto) 0.8 Lymph # (Auto) 2.47 [place] # (Auto) 0.7 H Eos # (Auto) 0.2 Baso # (Auto) 0.1 Abs Immat Gran (auto) 0.02 Absolute Neuts (auto) 4.4 Absolute Nucleated RBC 0.000 Nucleated RBC % 0.0 Sodium 135 L Potassium 3.7 Chloride 100 Carbon Dioxide 27 Anion Gap 8 BUN 22 H Creatinine 1.14 H Estim Creat Clear Calc 54 Estimated GFR 47 L Glucose 164 H POC Capillary Glucose 144 H 144 H Calcium 8.8 Magnesium 1.6 Total Bilirubin 0.7 AST 21 ALT 17 Alkaline Phosphatase 80 Total Protein 7.0 Albumin 3.9
[2024-11-04 07:32] LABS: Glucose Point of Care 149 mg/dl (65-105)
[2024-11-04] MEDS: SOTALOL HCL 80 MG TABLET PO ×2 (08:12→20:47)
[2024-11-04] MEDS: FUROSEMIDE 40 MG TABLET PO (08:12)
[2024-11-04] MEDS: NITROFURANTOIN MONOHYD MACROCR 100 MG CAP PO ×2 (08:12→20:47)
[2024-11-04] MEDS: ATORVASTATIN 10 MG TABLET PO (08:12)
[2024-11-04] MEDS: PANTOPRAZOLE 40 MG TABLET PO (08:12)
[2024-11-04] MEDS: dilTIAZem HCL 60 MG TABLET PO ×3 (08:13→17:34)
[2024-11-04] MEDS: APIXABAN 5 MG TABLET PO ×2 (08:13→20:47)
[2024-11-04 11:22] LABS: Glucose Point of Care 160 mg/dl (65-105)
--- NOTE | 2024-11-04 14:44 | P.PNIM_ITS ---
Progress Note: A&P Assessment and Plan (1) Atrial fibrillation with rapid ventricular response: Code(s): I48.91 - Unspecified atrial fibrillation Status: Acute Assessment and Plan: Patient has history of AFib and sees Dr. Davis on an outpatient basis * Patient was also given 25 mg metoprolol succinate and 5 mg IV push metoprolol tartrate while in the ED * Continue cardiac monitoring * Chest x-ray shown cardiomegaly with cardiac decompensation and pulmonary edema * Patient was given a dose of 40 mg IV push Lasix * Continue IMU status * Cardiology consulted * Continue sotalol for rate control, Cardizem infusion discontinued, started on oral Cardizem per Cardiology recommendation * 11/04/24 patient converted to normal sinus rhythm at 1:26 p.m. * Continue Eliquis (2) Urinary tract infection: Code(s): N39.0 - Urinary tract infection, site not specified Status: Acute Assessment and Plan: * UA showed positive nitrate, 1+ leukocyte, 6-10 urine WBC, 4+ urine bacteria * Urine culture showing E coli on preliminary read * Previous culture reviewed showing E coli and Klebsiella pneumoniae with marked resistance * Meropenem changed to Macrobid per ID pharmacy recommendation (3) CHF (congestive heart failure): Code(s): I50.9 - Heart failure, unspecified Status: Acute Assessment and Plan: Diastolic dysfunction * Previous echo from 09/28/2023 shown normal LV systolic function with an estimated EF of 60-65%, grade 1 diastolic dysfunction * Patient was given 40 mg IV push Lasix on admission * Continue Lasix 40 mg daily * Chest x-ray showing cardiomegaly with cardiac decompensation and pulmonary edema (4) Type 2 diabetes mellitus: Code(s): E11.9 - Type 2 diabetes mellitus without complications Status: Acute Assessment and Plan: * Blood sugar 155-180 * Hgb A1C 6.9 on 09/05/2024 * Accu checks AC/HS * High-dose SSI ordered * hypoglycemic protocol in place * Diabetic diet ordered (5) Essential (primary) hypertension: Code(s): I10 - Essential (primary) hypertension Status: Acute Assessment and Plan: * Blood pressure ranging 133/87 to 160/104 * Continue verapamil * Hydralazine ordered for systolic greater than 160 (6) Chronic kidney disease, stage 3 (moderate): Code(s): N18.3 - Chronic kidney disease, stage 3 (moderate) Status: Acute Assessment and Plan: * Creatinine 1.01, EGFR 54 which is below patient's baseline * Baseline appears to be 1.20-1.7 on previous labs * Continue to trend (7) Mixed hyperlipidemia: Code(s): E78.2 - Mixed hyperlipidemia Status: Acute Assessment and Plan: * Continue atorvastatin (8) GERD (gastroesophageal reflux disease): Code(s): K21.9 - Gastro-esophageal reflux disease without esophagitis Status: Acute Assessment and Plan: * Start Protonix (9) Morbid obesity: Code(s): E66.01 - Morbid (severe) obesity due to excess calories Status: Acute Assessment and Plan: * BMI 37.6, 115.5 kg * Educate on diet and exercise program (10) Sinusitis: Code(s): J32.9 - Chronic sinusitis, unspecified Status: Acute Assessment and Plan: * 11/04/24 Start Flonase, Claritin, Robitussin Subjective Date/time seen: 11/04/24 14:44 Interval history: Interval history: This is a 69-year-old female with a significant past medical history of TIA, CVA with residual right-sided weakness, atrial fibrillation, morbid obesity, chronic kidney disease stage 3, hyperlipidemia, hypertension, type 2 diabetes mellitus, cataracts status post cataract extraction, vitamin-D deficiency, osteoarthritis who presented to the hospital with complaints of AFib RVR. Patient states that she noticed increased shortness of breath when she got dressed this morning to go to her doctor's appointment. She states that it felt like her heart was racing. At her doctor's office they found that she was in AFib and told her to take another 25 mg of her metoprolol however she decided to present here for further evaluation. She is followed by Dr. Davis floral associate on an outpatient basis. She denies any recent illness, fever, chills, nausea, vomiting, diarrhea, abdominal pain, chest pain. Workup in the hospital included initial labs which showed a normal white blood cell count of 7.5, bicarb 19, creatinine 1.01, EGFR 54, blood sugar 156 with last hemoglobin A1c 6.9 on 09/05/2024. UA was obtained which showed positive nitrate, 1+ leukocyte, 6-10 urine WBC, 4+ urine bacteria. Urine culture was obtained and pending. EKG showing AFib with RVR with a rate of 127, QTC 438. Patient was given 5 mg IV push buttock and 25 mg metoprolol succinate while in the ED with little response to control in the heart rate. Patient was also given 1 L of LR, Cardizem bolus with infusion. She was also started on meropenem considering she has had ESBL in the past. Subjective: Patient reports coughing today and overnight. She denies any other complaints today. Labs reviewed. Review of Systems Review of Systems: All systems reviewed & are unremarkable except as noted in HPI and below Exam Narrative: General: In no acute distress, well nourished Cardiac: Normal S1 and S2. Irregular rhythm No murmur, gallops or friction rubs, peripheral pulses intact. Respiratory: Lungs clear to auscultation, no adventitious lung sounds, currently on room air, productive cough, postnasal drip Gastrointestinal: soft, non-distended, non-tender, normoactive bowel sounds. : voiding without difficulty. Neuro: Alert and oriented x4 Objective Data Vital Signs Vital Signs: Vital Signs - 24 hr 11/03/24 15:41 11/03/24 16:00 11/03/24 16:00 Temperature 98.1 F Pulse Rate 93 79 Respiratory Rate 22 H Blood Pressure 145/76 H Pulse Oximetry 98 Oxygen Delivery Room Air 11/03/24 16:00 11/03/24 18:00 11/03/24 18:00 Temperature Pulse Rate 93 74 88 Respiratory Rate 18 Blood Pressure 145/76 H 129/67 Pulse Oximetry 94 Oxygen Delivery 11/03/24 18:00 11/03/24 20:00 11/03/24 20:00 Temperature 98.7 F Pulse Rate 88 73 92 Respiratory Rate 18 Blood Pressure 129/67 121/97 H 121/97 H Pulse Oximetry 96 Oxygen Delivery 11/03/24 20:00 11/03/24 20:00 11/03/24 21:19 Temperature Pulse Rate 92 92 92 Respiratory Rate 18 Blood Pressure Pulse Oximetry 96 Oxygen Delivery Room Air 11/03/24 21:28 11/03/24 21:28 11/03/24 21:55 Temperature Pulse Rate 90 90 90 Respiratory Rate Blood Pressure 121/73 121/73 Pulse Oximetry Oxygen Delivery 11/03/24 21:55 11/04/24 00:00 11/04/24 00:00 Temperature 98.2 F Pulse Rate 90 110 H 95 Respiratory Rate 16 16 Blood Pressure 121/73 117/87 Pulse Oximetry 96 96 Oxygen Delivery Room Air 11/04/24 00:00 11/04/24 00:00 11/04/24 02:00 Temperature Pulse Rate 95 110 H 97 Respiratory Rate Blood Pressure 117/87 111/52 L Pulse Oximetry Oxygen Delivery 11/04/24 02:00 11/04/24 02:00 11/04/24 04:00 Temperature 98.3 F Pulse Rate 88 97 98 Respiratory Rate 16 Blood Pressure 111/52 L 110/64 Pulse Oximetry 93 Oxygen Delivery 11/04/24 04:00 11/04/24 04:00 11/04/24 04:00 Temperature Pulse Rate 87 87 87 Respiratory Rate 16 Blood Pressure 110/64 Pulse Oximetry 93 Oxygen Delivery Room Air 11/04/24 06:00 11/04/24 06:00 11/04/24 06:01 Temperature Pulse Rate 92 92 92 Respiratory Rate Blood Pressure 114/72 114/72 Pulse Oximetry Oxygen Delivery 11/04/24 07:50 11/04/24 08:00 11/04/24 08:11 Temperature 98.5 F Pulse Rate 75 87 96 Respiratory Rate 18 Blood Pressure 133/61 Pulse Oximetry 96 Oxygen Delivery 11/04/24 08:12 11/04/24 10:00 11/04/24 10:23 Temperature Pulse Rate 100 99 84 Respiratory Rate Blood Pressure Pulse Oximetry Oxygen Delivery 11/04/24 11:26 Temperature 98.2 F Pulse Rate 92 Respiratory Rate 20 Blood Pressure 144/86 H Pulse Oximetry 94 Oxygen Delivery Intake/Output Intake/Output: Intake & Output 11/01/24 11/02/24 11/03/24 11/04/24 23:59 23:59 23:59 23:59 Intake Total 1627.2 2021.3 1733.7 1320.0 Output Total 2600 3050 1450 1602 Balance -972.8 -1028.7 283.7 -282.0 Meds/Results Medications: Active Medications Generic Name Dose Route Start Last Admin Trade Name Freq PRN Reason Stop Dose Admin Acetaminophen 650 mg 11/01/24 14:35 Acetaminophen 325 Mg Tablet PO Q4H PRN Mild Pain (1-3) or Fever Apixaban 5 mg 11/01/24 22:55 11/04/24 08:13 Apixaban 5 Mg Tablet PO 5 mg Q12HR CHRISSY Administration Atorvastatin Calcium 10 mg 11/02/24 09:00 11/04/24 08:12 Atorvastatin 10 Mg Tablet PO 10 mg DAILY CHRISSY Administration Dextrose 12.5 gm 11/01/24 14:35 Dextrose 50% 25 Gm/50 Ml Syringe IV PUSH PRN PRN Hypoglycemia Protocol Diltiazem HCl 60 mg 11/04/24 07:20 11/04/24 11:34 Diltiazem Hcl 60 Mg Tablet PO 60 mg Q6HR CHRISSY Administration Furosemide 40 mg 11/02/24 13:35 11/04/24 08:12 Furosemide 40 Mg Tablet PO 40 mg DAILY CHRISSY Administration Glucagon 1 mg 11/01/24 14:35 Glucagon For Inj 1 Mg Vial IM PRN PRN Hypoglycemia Protocol Glucose 15 gm 11/01/24 14:35 Glucose Oral Gel 15 Gm Of Glucse In 37.5 Gm Tube PO PRN PRN Hypoglycemia Protocol Hydralazine HCl 10 mg 11/01/24 15:01 Hydralazine Hcl 20 Mg/Ml Vial IV PUSH Q8H PRN Blood Pressure - High Dextrose 1,000 mls @ 100 mls/hr 11/01/24 14:35 Dextrose 5% 1,000 Ml IVPB PRN PRN Hypoglycemia Protocol Insulin Aspart 4 - 8 units 11/01/24 17:00 11/04/24 11:33 Insulin Aspart (*Bkc) 100 Units/Ml SUB-Q Not Given TIDWM CHRISSY Protocol Insulin Aspart 2 - 4 units 11/01/24 21:00 11/03/24 20:57 Insulin Aspart (*Bkc) 100 Units/Ml SUB-Q Not Given HS CHRISSY Protocol Levothyroxine Sodium 112 mcg/ 137 mcg 11/02/24 06:30 11/04/24 05:55 Levothyroxine Sodium 25 mcg PO 137 mcg DAILY@0630 CHRISSY Administration Melatonin 5 mg 11/02/24 21:00 11/03/24 21:20 Melatonin 5 Mg Tablet PO 5 mg HS CHRISSY Administration Nitrofurantoin Macrocrystals 100 mg 11/03/24 12:00 11/04/24 08:12 Nitrofurantoin Monohyd Macrocr 100 Mg Cap PO 11/07/24 21:01 100 mg Q12HR CHRISSY Administration Ondansetron HCl 4 mg 11/01/24 14:35 Ondansetron Inj 4 Mg/2 Ml Vial IV PUSH Q6H PRN Nausea And Vomiting Pantoprazole Sodium 40 mg 11/02/24 09:00 11/04/24 08:12 Pantoprazole 40 Mg Tablet PO 40 mg QAM CHRISSY Administration Sotalol HCl 80 mg 11/03/24 12:10 11/04/24 08:12 Sotalol Hcl 80 Mg Tablet PO 80 mg Q12HR CHRISSY Administration Radiology Results: ITS Impressions Chest X-Ray 11/01/24 14:50 IMPRESSION: Cardiomegaly with cardiac decompensation and pulmonary edema are highly suggestive. Superimposed pneumonitis cannot be excluded Labs Labs: Laboratory Results - last 24 hr 11/03/24 11/03/24 11/04/24 16:03 19:54 04:16 WBC 7.8 RBC 4.35 Hgb 13.0 Hct 39.5 MCV 90.8 MCH 29.9 MCHC 32.9 RDW 13.2 Plt Count 228 MPV 11.2 H Immature Gran % (Auto) 0.3 Neut % (Auto) 56.0 Lymph % (Auto) 31.8 [place] % (Auto) 8.9 H Eos % (Auto) 2.2 Baso % (Auto) 0.8 Lymph # (Auto) 2.47 [place] # (Auto) 0.7 H Eos # (Auto) 0.2 Baso # (Auto) 0.1 Abs Immat Gran (auto) 0.02 Absolute Neuts (auto) 4.4 Absolute Nucleated RBC 0.000 Nucleated RBC % 0.0 Sodium 135 L Potassium 3.7 Chloride 100 Carbon Dioxide 27 Anion Gap 8 BUN 22 H Creatinine 1.14 H Estim Creat Clear Calc 54 Estimated GFR 47 L Glucose 164 H POC Capillary Glucose 144 H 144 H Calcium 8.8 Magnesium 1.6 Total Bilirubin 0.7 AST 21 ALT 17 Alkaline Phosphatase 80 Total Protein 7.0 Albumin 3.9 11/04/24 11/04/24 07:21 11:14 WBC RBC Hgb Hct MCV MCH MCHC RDW Plt Count MPV Immature Gran % (Auto) Neut % (Auto) Lymph % (Auto) [place] % (Auto) Eos % (Auto) Baso % (Auto) Lymph # (Auto) [place] # (Auto) Eos # (Auto) Baso # (Auto) Abs Immat Gran (auto) Absolute Neuts (auto) Absolute Nucleated RBC Nucleated RBC % Sodium Potassium Chloride Carbon Dioxide Anion Gap BUN Creatinine Estim Creat Clear Calc Estimated GFR Glucose POC Capillary Glucose 149 H 160 H Calcium Magnesium Total Bilirubin AST ALT Alkaline Phosphatase Total Protein Albumin Quality VTE Prophylaxis VTE prophylaxis: pharmacologic ordered
[2024-11-04 15:35] LABS: Glucose Point of Care 140 mg/dl (65-105)
[2024-11-04] MEDS: guaiFENesin/DEXTROMETHORPHAN 10 ML UDC PO (17:38)
[2024-11-04 19:45] LABS: Glucose Point of Care 152 mg/dl (65-105)
[2024-11-04] MEDS: MELATONIN 5 MG TABLET PO (20:47)
--- NOTE | 2024-11-04 23:00 | ECG_ITS ---
Test Date: 2024-11-04 23:07:56 Measurements Intervals [place] Rate: 61 P: 70 MO: 208 QRS: 4 QRSD: 92 T: 15 QT: 509 QTc: 513 Interpretive Statements SINUS RHYTHM WITH OCCASIONAL SUPRAVENTRICULAR PREMATURE COMPLEXES PROLONGED QT INTERVAL Compared to ECG 11/03/2024 23:59:59 Prolonged QT interval now present Atrial flutter no longer present T-wave abnormality no longer present Electronically Signed On 11-05-2024 11:44:58 CDT by Toño Ellis M.D.
[2024-11-05] VITALS (11 sets, daily range): BP systolic 112–129; BP diastolic 47–73; PULSE 53–64; RESP 16–20; TEMP 36.6–36.8; O2SAT 95–99
--- NOTE | 2024-11-05 | ECHO_ITS ---
Patient Info Name: Mery Gutierrez Age: 69 years : 1955 Gender: Female Ht: 69 in Wt: 243 lbs BSA: 2.36 m2 HR: 53 bpm BP: 112 / 47 mmHg Heart Rhythm: Sinus Rhythm Technical Quality: Good Exam Date: 11/05/2024 8:38 AM Exam Location: Echo Lab Patient Status: Inpatient Admit Date: 11/02/2024 Staff Ordering Physician: Benjamin Davis DO Custodian: Lisa Osborn RDCS Attending Provider: Charissa Moralez MD Referring Physician: Ryan OSEI; Exam Type: CA echo doppler color flow Study Info Indications - CHF Complete two-dimensional, color flow and Doppler transthoracic echocardiogram is performed. Summary 1. Complete two-dimensional, color flow and Doppler transthoracic echocardiogram is performed. 2. Left ventricular chamber dimension is normal. 3. Left ventricular systolic function is normal, estimated at 55-60%. 4. The left ventricular diastolic function is abnormal. 5. E/e' 20 is elevated. 6. Left atrial chamber dimension is severely enlarged. 7. Right atrial chamber dimension is mildly enlarged. 8. There is mild to moderate aortic valve regurgitation. 9. The mitral valve has severely calcified leaflets. 10. There is mild mitral valve stenosis with mean gradient 3 mmHg. 11. There is moderate mitral valve regurgitation. 12. There is moderate tricuspid valve regurgitation. 13. No pulmonary hypertension, estimated pulmonary arterial systolic pressure is 29 mmHg. 14. There is trivial pericardial effusion. Left Ventricle E/e' 20 is elevated. Left ventricular chamber dimension is normal. Left ventricular systolic function is normal, estimated at 55-60%. The left ventricular diastolic function is abnormal. Right Ventricle Right ventricular systolic function is normal and with normal TAPSE 2.1 cm. Right ventricular chamber dimension is normal. Left Atria Left atrial chamber dimension is severely enlarged. Right Atria Right atrial chamber dimension is mildly enlarged. Aortic Valve The aortic valve is trileaflet. There is no aortic valve stenosis. There is mild to moderate aortic valve regurgitation. Pulmonic Valve There is no pulmonic regurgitation. Mitral Valve The mitral valve has severely calcified leaflets. There is mild mitral valve stenosis with mean gradient 3 mmHg. There is moderate mitral valve regurgitation. Tricuspid Valve There is moderate tricuspid valve regurgitation. No pulmonary hypertension, estimated pulmonary arterial systolic pressure is 29 mmHg. Pericardium/Pleural There is trivial pericardial effusion. Inferior Vena Cava Normal inferior vena cava with >50% collapse upon inspiration consistent with normal right atrial pressure, 5 mmHg. Aorta The aortic root size at the sinus of Valsalva is normal. Left Ventricular Outflow Tract Name Value Normal LVOT 2D LVOT Diameter 2.0 cm LVOT Doppler LVOT Peak Gradient 4 mmHg LVOT Mean Gradient 2 mmHg LVOT VTI 26 cm LVOT VTI/AV VTI Ratio 0.8 LVOT Stroke Volume 81 ml LVOT CO 14.2 l/min LVOT CI 6.0 l/min/m2 Pulmonic Valve Name Value Normal RVOT Doppler RVOT Peak Gradient 2 mmHg PV Doppler PV Peak Gradient 2 mmHg Mitral Valve Name Value Normal MV Doppler MV Peak Gradient 10 mmHg MV Mean Gradient 3 mmHg MV Decel Angelina 432 cm/s2 MV PHT 89 ms MV Area (PHT) 2.5 cm2 4.0-5.0 MV Area (Cont Eq VTI) 1.8 cm2 MV Regurgitation Doppler MR Peak Gradient 94 mmHg MV Diastolic Function MV E Peak Velocity 132 cm/s MV A Peak Velocity 75 cm/s MV E/A 1.8 MV Decel Time 306 ms MV Annular TDI MV E/e' (Septal) 18.5 <=8.0 MV E/e' (Lateral) 22.1 <=8.0 MV E/e' (Average) 20.3 Tricuspid Valve Name Value Normal TV Regurgitation Doppler TR Peak Velocity 246 cm/s TR Peak Gradient 24 mmHg Estimated PAP/RSVP RA Pressure 5 mmHg <=5 PA Systolic Pressure 29 mmHg <36 RV Systolic Pressure 29 mmHg <36 Aortic Valve Name Value Normal AV Doppler AV Peak Velocity 121 cm/s AV Peak Gradient 6 mmHg AV Mean Gradient 3 mmHg AV VTI 32 cm AV Area (Cont Eq VTI) 2.5 cm2 >=3.0 AV Area (Cont Eq Travis) 2.7 cm2 AV Regurgitation 2D LVOT Area 3.1 cm2 AV Regurgitation Doppler AR Decel Time 2,074 ms AR Decel Angelina 205 cm/s2 AR PHT 601 ms Ventricles Name Value Normal LV Dimensions 2D/MM IVS Diastolic Thickness (2D) 1.1 cm 0.6-1.0 LVID Diastole (2D) 5.8 cm 3.8-5.2 LVIW Diastolic Thickness (2D) 1.1 cm 0.6-0.9 LVID Systole (2D) 4.1 cm 2.2-3.5 LVOT Diameter 2.0 cm LV Mass (2D Cubed) 260.78 g 67.00-162.00 LV Mass Index (2D Cubed) 111 g/m2 43-95 Relative Wall Thickness (2D) 0.36 LV Fractional Shortening/Ejection Fraction 2D/MM LV Fractional Shortening (2D) 30 % 27-45 LV EF (2D Teicholz) 56 % 54-74 LV Diastolic Volume (4C MOD) 190 ml LV EF (4C MOD) 62 % LV Diastolic Volume (2C MOD) 164 ml LV EF (2C MOD) 50 % LV Diastolic Volume (BP MOD) 183 ml 46-106 LV Diastolic Volume Index (BP MOD) 78 ml/m2 29-61 LV Systolic Volume (BP MOD) 77 ml 14-42 LV Systolic Volume Index (BP MOD) 33 ml/m2 8-24 LV EF (BP MOD) 58 % 54-74 LV Diastolic Length (4C) 9.3 cm LV Systolic Length (4C) 7.3 cm LV Stroke Volume (4C MOD) 117 ml Atria Name Value Normal LA Dimensions LA Volume (4C A-L) 126 ml LA Volume (BP A-L) 143 ml RA Dimensions RA Area (4C) 24.2 cm2 <=18.0 Report Signatures
[2024-11-05] MEDS: dilTIAZem HCL 60 MG TABLET PO ×2 (00:09→05:51)
[2024-11-05 04:41] LABS: Basophils Absolute Auto 0.1 K/mm3 (0.0-0.1); Basophils Percent Auto 0.9 % (0.2-1.2); Eosinophils Absolute Auto 0.2 K/mm3 (0-0.3); Eosinophils Percent Auto 3.7 % (0-4.4); Hematocrit 38.6 % (37.0-47.0); Hemoglobin 12.4 g/dL (12.0-15.0); Immature Granulocyte Absolute 0.02 K/mm3 (0.00-0.031); Immature Granulocyte Percent A 0.3 % (0-0.5); Lymphocytes Absolute Auto 2.45 K/mm3 (0.9-3.2); Lymphocytes Percent Auto 38.1 % (18.3-44.2); Mean Corpuscular HGB Conc 32.1 g/dl (32-36); Mean Corpuscular Hemoglobin 29.2 pg (26-34); Mean Corpuscular Volume 90.8 fl (80-100); Mean Platelet Volume 11.7 fl (7.4-10.4); Monocytes Absolute Auto 0.6 K/mm3 (0.1-0.6); Monocytes Percent Auto 9.5 % (2.6-8.5); Neutrophils Absolute Auto 3.1 K/mm3 (1.3-6.7); Neutrophils Percent Auto 47.5 % (45.5-73.1); Platelet Count Result 208 k/mm3 (150-375); Red Blood Count 4.25 M/mm3 (4.2-5.4); Red Cell Distribution Width 13.4 % (11.5-14.5); White Blood Count 6.4 K/mm3 (4.5-10.0)
[2024-11-05 04:46] LABS: Alanine Aminotransferase 14 U/L (6-35); Albumin Level 3.8 g/dL (3.5-5.1); Alkaline Phosphatase 78 U/L (38-126); Anion Gap 12 mmol/L (4-12); Aspartate Amino Transferase 25 U/L (14-36); Bilirubin,Total 0.9 mg/dL (0.2-1.3); Blood Urea Nitrogen 28 mg/dL (7-17); Calcium 8.8 mg/dL (8.4-10.2); Carbon Dioxide 27 mmol/L (22-30); Chloride 95 mmol/L (98-107); Estimated CRCL calculation 47 ml/min; Estimated Glomerular Filt Rate 40; Glucose 142 mg/dL (65-110); Magnesium 1.5 mg/dL (1.6-2.3); Potassium 3.3 mmol/L (3.4-5.0); Sodium 134 mmol/L (137-145)
[2024-11-05] MEDS: LEVOTHYROXINE SODIUM 112 MCG, LEVOTHYROXINE SODIUM 25 MCG 137 MCG PO (05:44)
[2024-11-05] MEDS: POTASSIUM CHLORIDE 20 MEQ ER TABLET 40 MEQ PO (05:44)
[2024-11-05] MEDS: MAGNESIUM SULF 2 GM/WATER 50ML 2 GM/50 ML BAG IVPB (05:46)
[2024-11-05] MEDS: guaiFENesin/DEXTROMETHORPHAN 10 ML UDC PO (05:58)
[2024-11-05 07:36] LABS: Glucose Point of Care 173 mg/dl (65-105)
--- NOTE | 2024-11-05 08:22 | P.PNCA_ITS ---
Progress Note: A&P Assessment and Plan (1) PAF (paroxysmal atrial fibrillation): Code(s): I48.0 - Paroxysmal atrial fibrillation Status: Acute Assessment and Plan: Back in sinus rhythm. On Eliquis. Start Sotalol 80 mg BID per protocol on 11/03/24, checking EKG with each dose for 5 doses. QT interval is OK. After echo is done and 5th dose of Sotalol, then may d/c home from cardiology standpoint and f/u with me in 1 week. (2) Essential (primary) hypertension: Code(s): I10 - Essential (primary) hypertension Status: Acute Assessment and Plan: Stable. (3) Mixed hyperlipidemia: Code(s): E78.2 - Mixed hyperlipidemia Status: Acute Assessment and Plan: On Atorvastatin. (4) CHF (congestive heart failure): Code(s): I50.9 - Heart failure, unspecified Status: Acute Assessment and Plan: Acute on chronic diastolic heart failure. Decrease Lasix 20 mg PO daily. Check echo. (5) Urinary tract infection: Code(s): N39.0 - Urinary tract infection, site not specified Status: Acute Assessment and Plan: On antibiotics. Subjective Date/time seen: 11/05/24 08:22 Interval history: Denies chest pain or sob. Exam Const: General: cooperative, healthy appearing and comfortable Orientation/consciousness: oriented to person, oriented to place and oriented to time Resp: Auscultation: clear to auscultation bilaterally, no crackles, no rales, no rhonchi and no wheezes Cardio: Rate: bradycardic Rhythm: regular rhythm Heart sounds: no murmurs Peripheral pulses: dorsalis pedis present Neuro: General: oriented to person, oriented to place and oriented to time Extrem: Right lower extremity: no edema Left lower extremity: no edema Objective Data Vital Signs Vital Signs: Vital Signs - 24 hr 11/04/24 10:00 11/04/24 10:23 11/04/24 11:26 Temperature 98.2 F Pulse Rate 99 84 92 Respiratory Rate 20 Blood Pressure 144/86 H Pulse Oximetry 94 Oxygen Delivery 11/04/24 12:00 11/04/24 14:00 11/04/24 15:40 Temperature 98.2 F Pulse Rate 91 64 65 Respiratory Rate 18 Blood Pressure 142/66 H Pulse Oximetry 98 Oxygen Delivery 11/04/24 16:00 11/04/24 18:00 11/04/24 19:54 Temperature 97.8 F Pulse Rate 65 71 67 Respiratory Rate 18 Blood Pressure 133/62 Pulse Oximetry 96 Oxygen Delivery 11/04/24 20:00 11/04/24 20:45 11/04/24 20:47 Temperature Pulse Rate 65 63 Respiratory Rate Blood Pressure Pulse Oximetry Oxygen Delivery Room Air 11/04/24 22:00 11/05/24 00:00 11/05/24 00:00 Temperature 98.3 F Pulse Rate 61 64 61 Respiratory Rate 16 Blood Pressure 118/61 Pulse Oximetry 97 Oxygen Delivery 11/05/24 00:00 11/05/24 02:00 11/05/24 04:00 Temperature 97.8 F Pulse Rate 58 L 55 L Respiratory Rate 18 Blood Pressure 112/47 L Pulse Oximetry 95 Oxygen Delivery Room Air 11/05/24 04:00 11/05/24 04:15 11/05/24 06:00 Temperature Pulse Rate 56 L 57 L Respiratory Rate Blood Pressure Pulse Oximetry Oxygen Delivery Room Air 11/05/24 07:51 Temperature 97.8 F Pulse Rate 55 L Respiratory Rate 20 Blood Pressure 129/66 Pulse Oximetry 99 Oxygen Delivery Intake/Output Intake/Output: Intake & Output 11/02/24 11/03/24 11/04/24 11/05/24 23:59 23:59 23:59 23:59 Intake Total 2021.3 1733.7 2060.0 800 Output Total 3050 1450 2702 150 Balance -1028.7 283.7 -642.0 650 Meds/Results Medications: Active Medications Generic Name Dose Route Start Last Admin Trade Name Freq PRN Reason Stop Dose Admin Acetaminophen 650 mg 11/01/24 14:35 Acetaminophen 325 Mg Tablet PO Q4H PRN Mild Pain (1-3) or Fever Apixaban 5 mg 11/01/24 22:55 11/04/24 20:47 Apixaban 5 Mg Tablet PO 5 mg Q12HR CHRISSY Administration Atorvastatin Calcium 10 mg 11/02/24 09:00 11/04/24 08:12 Atorvastatin 10 Mg Tablet PO 10 mg DAILY CHRISSY Administration Dextrose 12.5 gm 11/01/24 14:35 Dextrose 50% 25 Gm/50 Ml Syringe IV PUSH PRN PRN Hypoglycemia Protocol Fluticasone Propionate 2 spray 11/05/24 09:00 Fluticasone Propionate 0.05% Na Spr 16 Gm Btl (*Bkc) NASAL QAM CHRISSY Furosemide 20 mg 11/05/24 09:00 Furosemide 20 Mg Tablet PO DAILY CHRISSY Glucagon 1 mg 11/01/24 14:35 Glucagon For Inj 1 Mg Vial IM PRN PRN Hypoglycemia Protocol Glucose 15 gm 11/01/24 14:35 Glucose Oral Gel 15 Gm Of Glucse In 37.5 Gm Tube PO PRN PRN Hypoglycemia Protocol Guaifenesin/Dextromethorphan 10 ml 11/04/24 16:02 11/05/24 05:58 Guaifenesin/Dextromethorphan 10 Ml Udc PO 10 ml Q4H PRN Administration Cough Hydralazine HCl 10 mg 11/01/24 15:01 Hydralazine Hcl 20 Mg/Ml Vial IV PUSH Q8H PRN Blood Pressure - High Dextrose 1,000 mls @ 100 mls/hr 11/01/24 14:35 Dextrose 5% 1,000 Ml IVPB PRN PRN Hypoglycemia Protocol Insulin Aspart 4 - 8 units 11/01/24 17:00 11/04/24 17:34 Insulin Aspart (*Bkc) 100 Units/Ml SUB-Q Not Given TIDWM [facility] Protocol Insulin Aspart 2 - 4 units 11/01/24 21:00 11/04/24 20:46 Insulin Aspart (*Bkc) 100 Units/Ml SUB-Q Not Given HS [facility] Protocol Levothyroxine Sodium 112 mcg/ 137 mcg 11/02/24 06:30 11/05/24 05:44 Levothyroxine Sodium 25 mcg PO 137 mcg DAILY@0630 CHRISSY Administration Loratadine 10 mg 11/05/24 09:00 Loratadine 10 Mg Tablet PO QAM CHRISSY Melatonin 5 mg 11/02/24 21:00 11/04/24 20:47 Melatonin 5 Mg Tablet PO 5 mg HS CHRISSY Administration Nitrofurantoin Macrocrystals 100 mg 11/03/24 12:00 11/04/24 20:47 Nitrofurantoin Monohyd Macrocr 100 Mg Cap PO 11/07/24 21:01 100 mg Q12HR CHRISSY Administration Ondansetron HCl 4 mg 11/01/24 14:35 Ondansetron Inj 4 Mg/2 Ml Vial IV PUSH Q6H PRN Nausea And Vomiting Pantoprazole Sodium 40 mg 11/02/24 09:00 11/04/24 08:12 Pantoprazole 40 Mg Tablet PO 40 mg QAM CHRISSY Administration Perflutren Lipid Microsphere 0 ml 11/05/24 06:44 Perflutren Lipid Microspheres 1.5 Ml Vial Diluted To 10 Ml Total Volume IV PUSH 11/08/24 06:44 ONCE PRN adequate visualization Protocol Sotalol HCl 80 mg 11/03/24 12:10 11/04/24 20:47 Sotalol Hcl 80 Mg Tablet PO 80 mg Q12HR CHRISSY Administration Radiology Results: ITS Impressions Chest X-Ray 11/01/24 14:50 IMPRESSION: Cardiomegaly with cardiac decompensation and pulmonary edema are highly suggestive. Superimposed pneumonitis cannot be excluded Labs Labs: Laboratory Results - last 24 hr 11/04/24 11/04/24 11/04/24 11:14 15:29 19:39 WBC RBC Hgb Hct MCV MCH MCHC RDW Plt Count MPV Immature Gran % (Auto) Neut % (Auto) Lymph % (Auto) [place] % (Auto) Eos % (Auto) Baso % (Auto) Lymph # (Auto) [place] # (Auto) Eos # (Auto) Baso # (Auto) Abs Immat Gran (auto) Absolute Neuts (auto) Absolute Nucleated RBC Nucleated RBC % Sodium Potassium Chloride Carbon Dioxide Anion Gap BUN Creatinine Estim Creat Clear Calc Estimated GFR Glucose POC Capillary Glucose 160 H 140 H 152 H Calcium Magnesium Total Bilirubin AST ALT Alkaline Phosphatase Total Protein Albumin 11/05/24 11/05/24 03:53 07:28 WBC 6.4 RBC 4.25 Hgb 12.4 Hct 38.6 MCV 90.8 MCH 29.2 MCHC 32.1 RDW 13.4 Plt Count 208 MPV 11.7 H Immature Gran % (Auto) 0.3 Neut % (Auto) 47.5 Lymph % (Auto) 38.1 [place] % (Auto) 9.5 H Eos % (Auto) 3.7 Baso % (Auto) 0.9 Lymph # (Auto) 2.45 [place] # (Auto) 0.6 Eos # (Auto) 0.2 Baso # (Auto) 0.1 Abs Immat Gran (auto) 0.02 Absolute Neuts (auto) 3.1 Absolute Nucleated RBC 0.000 Nucleated RBC % 0.0 Sodium 134 L Potassium 3.3 L Chloride 95 L Carbon Dioxide 27 Anion Gap 12 BUN 28 H Creatinine 1.30 H Estim Creat Clear Calc 47 Estimated GFR 40 L Glucose 142 H POC Capillary Glucose 173 H Calcium 8.8 Magnesium 1.5 L Total Bilirubin 0.9 AST 25 ALT 14 Alkaline Phosphatase 78 Total Protein 7.0 Albumin 3.8
[2024-11-05] MEDS: SOTALOL HCL 80 MG TABLET PO (09:13)
[2024-11-05] MEDS: PANTOPRAZOLE 40 MG TABLET PO (09:13)
[2024-11-05] MEDS: ATORVASTATIN 10 MG TABLET PO (09:13)
[2024-11-05] MEDS: NITROFURANTOIN MONOHYD MACROCR 100 MG CAP PO (09:14)
[2024-11-05] MEDS: APIXABAN 5 MG TABLET PO (09:14)
[2024-11-05] MEDS: LORATADINE 10 MG TABLET PO (09:14)
[2024-11-05] MEDS: FUROSEMIDE 20 MG TABLET PO (09:14)
[2024-11-05 11:23] LABS: Glucose Point of Care 170 mg/dl (65-105)
--- NOTE | 2024-11-05 13:21 | PM.DS ---
DS: Admitting Diagnosis Discharge Date 11/05/24 Admitting Diagnosis A fib RVR DS: Summary Hospital Course Hospital Course: This is a 69-year-old female with a significant past medical history of TIA, CVA with residual right-sided weakness, atrial fibrillation, morbid obesity, chronic kidney disease stage 3, hyperlipidemia, hypertension, type 2 diabetes mellitus, cataracts status post cataract extraction, vitamin-D deficiency, osteoarthritis who presented to the hospital with complaints of AFib RVR. Patient states that she noticed increased shortness of breath when she got dressed this morning to go to her doctor's appointment. She states that it felt like her heart was racing. At her doctor's office they found that she was in AFib and told her to take another 25 mg of her metoprolol however she decided to present here for further evaluation. She is followed by Dr. Davis functional architect on an outpatient basis. She denies any recent illness, fever, chills, nausea, vomiting, diarrhea, abdominal pain, chest pain. Workup in the hospital included initial labs which showed a normal white blood cell count of 7.5, bicarb 19, creatinine 1.01, EGFR 54, blood sugar 156 with last hemoglobin A1c 6.9 on 09/05/2024. UA was obtained which showed positive nitrate, 1+ leukocyte, 6-10 urine WBC, 4+ urine bacteria. Urine culture was obtained and pending. EKG showing AFib with RVR with a rate of 127, QTC 438. Patient was given 5 mg IV push buttock and 25 mg metoprolol succinate while in the ED with little response to control in the heart rate. Patient was also given 1 L of LR, Cardizem bolus with infusion. She was also started on meropenem considering she has had ESBL in the past. Patient was managed for Afib RVR, cardiology was consulted, She was started on Sotalol and susccessfully monitored on the first 5 doses, cardiology satisfied with the results of the EKG adn ECHO and recommended discharge today. Metoprolol and Verapamil discontinued per cards Also managed for UTI and now discharged on Nitrofurantoin per Urine culture for 3 more days Continue other home medication F/u with PCP in 3-5 days F/u with cardiology as instructed Time Spent with Patient Time attestation: Total time spent providing and/or coordinating discharge services: DS: Data Data Completed and Pending Labs on day of discharge: Labs from last 24 hours 11/05/24 11/05/24 11/05/24 11:15 07:28 03:53 WBC 6.4 RBC 4.25 Hgb 12.4 Hct 38.6 MCV 90.8 MCH 29.2 MCHC 32.1 RDW 13.4 Plt Count 208 MPV 11.7 H Immature Gran % (Auto) 0.3 Neut % (Auto) 47.5 Lymph % (Auto) 38.1 [place] % (Auto) 9.5 H Eos % (Auto) 3.7 Baso % (Auto) 0.9 Lymph # (Auto) 2.45 [place] # (Auto) 0.6 Eos # (Auto) 0.2 Baso # (Auto) 0.1 Abs Immat Gran (auto) 0.02 Absolute Neuts (auto) 3.1 Absolute Nucleated RBC 0.000 Nucleated RBC % 0.0 Sodium 134 L Potassium 3.3 L Chloride 95 L Carbon Dioxide 27 Anion Gap 12 BUN 28 H Creatinine 1.30 H Estim Creat Clear Calc 47 Estimated GFR 40 L Glucose 142 H POC Capillary Glucose 170 H 173 H Calcium 8.8 Magnesium 1.5 L Total Bilirubin 0.9 AST 25 ALT 14 Alkaline Phosphatase 78 Total Protein 7.0 Albumin 3.8 11/04/24 11/04/24 19:39 15:29 WBC RBC Hgb Hct MCV MCH MCHC RDW Plt Count MPV Immature Gran % (Auto) Neut % (Auto) Lymph % (Auto) [place] % (Auto) Eos % (Auto) Baso % (Auto) Lymph # (Auto) [place] # (Auto) Eos # (Auto) Baso # (Auto) Abs Immat Gran (auto) Absolute Neuts (auto) Absolute Nucleated RBC Nucleated RBC % Sodium Potassium Chloride Carbon Dioxide Anion Gap BUN Creatinine Estim Creat Clear Calc Estimated GFR Glucose POC Capillary Glucose 152 H 140 H Calcium Magnesium Total Bilirubin AST ALT Alkaline Phosphatase Total Protein Albumin Discharge Plan Discharge Attending physician on discharge: Charissa Moralez Consulting providers: Benjamin Davis Discharging Clinician: Cahrissa Moralez Anticipated Discharge Date/Time: 11/05/24 13:13 Patient Disposition: Home Activity: as tolerated Diet: as tolerated and heart healthy Patient Instructions: Antibiotic Form Patient Language: Luxembourger Stand Alone Forms: General Discharge Information Follow-up/Referrals: Jordy He MD [Primary Care Provider] - (F/u with PCP in 3-5 days ) Benjamin Davis DO [Physician] - (F/u with cardiology as insturcted ) Discharge Medications: New pantoprazole 40 mg Tablet,Delayed Release (Dr/Ec) 40 mg PO QAM 14 Days Qty: 14 0RF nitrofurantoin monohyd/m-cryst [Macrobid] 100 mg Capsule 100 mg PO Q12HR 3 Days Qty: 6 0RF sotalol 80 mg Tablet 80 mg PO Q12HR 30 Days Qty: 60 1RF furosemide 20 mg Tablet 20 mg PO DAILY 30 Days Qty: 30 0RF Continued levothyroxine 137 mcg tablet 137 mcg PO DAILY Qty: 90 2RF (DME) OneTouch Verio test strips Strip See Rx Instructions .Route Qty: 100 6RF Rx Instructions: As directed to check glucose once daily Eliquis 5 mg tablet 5 mg PO BID Qty: 60 5RF omeprazole 20 mg capsule,delayed release(DR/EC) 20 mg PO DAILY Qty: 90 1RF atorvastatin 10 mg tablet See Rx Instructions .ROUTE .COMPLEX Qty: 90 1RF Dose Instruction: Take 1 tablet by mouth once daily Rx Instructions: Take 1 tablet by mouth once daily Discontinued metoprolol succinate [Toprol XL] 25 mg tablet extended release 24 hr 25 mg PO DAILY Qty: 30 5RF verapamil 120 mg capsule,ext rel. pellets 24 hr 120 mg PO DAILY Date of admission: 11/02/24 16:21 Primary Care Provider: Jordy He Admitting Provider: Charissa Moralez Attending physician on admission: Charissa Moralez Condition: Serious
--- NOTE | 2024-11-06 07:59 | ECG_ITS ---
Test Date: 2024-11-05 11:38:09 Measurements Intervals [place] Rate: 51 P: 67 AR: 189 QRS: 13 QRSD: 102 T: 24 QT: 521 QTc: 484 Interpretive Statements SINUS BRADYCARDIA PROLONGED QT INTERVAL Compared to ECG 11/04/2024 23:07:56 Sinus rhythm no longer present Electronically Signed On 11-06-2024 15:55:18 CDT by Matthew Huerta
== END 2024-11-05 14:35 | disposition home or self-care (01) | DRG 308 ==
LOC: ANHED 12:34 → ANHIMU 15:26
PROVIDERS: Internal Medicine Cardiovascular Disease; Nurse Practitioner Acute Care; Admitting Provider Internal Medicine; Emergency Provider Emergency Medicine; PCP Family Medicine; Visit Provider Internal Medicine
DX: I48.0 Paroxysmal atrial fibrillation (principal); I50.33 Acute on chronic diastolic (congestive) heart failure; I13.0 Hypertensive heart and chronic kidney disease with heart failure and stage 1 through stage 4 chronic kidney disease, or unspecified chronic kidney disease; N39.0 Urinary tract infection, site not specified; B96.20 Unspecified Escherichia coli [E. coli] as the cause of diseases classified elsewhere; E78.2 Mixed hyperlipidemia; E11.22 Type 2 diabetes mellitus with diabetic chronic kidney disease; N18.30 Chronic kidney disease, stage 3 unspecified; E89.0 Postprocedural hypothyroidism; J32.9 Chronic sinusitis, unspecified; K21.9 Gastro-esophageal reflux disease without esophagitis; M19.90 Unspecified osteoarthritis, unspecified site; Z20.822 Contact with and (suspected) exposure to COVID-19; E66.01 Morbid (severe) obesity due to excess calories; Z68.35 Body mass index [BMI] 35.0-35.9, adult; Z79.01 Long term (current) use of anticoagulants; Z79.899 Other long term (current) drug therapy; Z86.73 Personal history of transient ischemic attack (TIA), and cerebral infarction without residual deficits; Z98.49 Cataract extraction status, unspecified eye
CPT/HCPCS: 36415; 71045; 80053; 81001; 82948; 83735; 83880; 84443; 85025; 87086; 87186; 87637; 93005; 93306; 96361; 96366; 96368; 96374; 96375; 99285; A9270; G0378; J1938; J2185; J3475; J7120

== ENCOUNTER 2024-12-13 09:36 | Outpatient (CLI) | payer MEDICARE, SELFPAY ==
--- OUTSIDE RECORDS SUMMARY | 2024-12-13 10:26 | XMS_ITS | CONTINUITY OF CARE DOCUMENT ---
Author Name chepe, chepe Address Unknown Organization [facility] [address] Address [address] [address] [address] [place] [address] Phone [phone] Care Team Providers Care Mechanical Piping Designer Name Role Phone Kristian Broderick DO Unavailable [phone] SATHISH FARIAS MD Unavailable SATHISH FARIAS MD [...] Provider blood pressure, diastolic 80 mm[Hg] Lobito fischer O'Valdo blood pressure, systolic 112 mm[Hg] Danitza Cordoba'Valdo [...] Payer name Policy type / Coverage type [employer] party ID [id number] PAY [id number] TREATMENT PLAN Date Name Performer Cardiology/EP:unclea r etiol. cont to monitor with Reveal. on Eliquis for now. Kristian Mckinnonck DO Cardiology/EP:no episodes per Re veal checks Kristian Abdullahicock DO Cardiology/EP:no further episode s since last appt Kristian Abdullahicock DO Cardiology/EP Kristian Abdullahicock DO HISTORY OF PROCEDURES Procedure Date Procedure Name Provider Procedure Notes S tatus Loop Recorder Interrogation, Remote Kristian Knott DO INTERROGATION EVALUATION REMOTE </30 D ILR SYS completed ICM Interrogation, Remote (Tech) Kristian Knott DO INTERROGATION EVAL REMOTE </30 D TECH REVIEW completed Loop Recorder Interrogation, Remote Kristian Knott DO INTERROGATION EVALUATION REMOTE </30 D ILR SYS completed ICM Interrogation, Remote (Tech) Kristian Knott DO INTERROGATION EVAL REMOTE </30 D TECH REVIEW completed Loop Recorder Interrogation, Remote Kristian Knott DO INTERROGATION EVALUATION REMOTE </30 D ILR SYS completed ICM Interrogation, Remote (Tech) Kristian Knott DO INTERROGATION EVAL REMOTE </30 D TECH REVIEW completed Loop Recorder Interrogation, Remote Kristian Knott DO INTERROGATION EVALUATION REMOTE </30 D ILR SYS completed ICM Interrogation, Remote (Tech) Kristian Knott DO INTERROGATION EVAL REMOTE </30 D TECH REVIEW completed Loop Recorder Interrogation, Remote Kristian Knott DO INTERROGATION EVALUATION REMOTE </30 D ILR SYS completed ICM Interrogation, Remote (Tech) Kristian Knott DO INTERROGATION EVAL REMOTE </30 D TECH REVIEW completed Loop Recorder Interrogation, Remote Kristian Knott DO INTERROGATION EVALUATION REMOTE </30 D ILR SYS completed ICM Interrogation, Remote (Tech) Kristian Knott DO INTERROGATION EVAL REMOTE </30 D TECH REVIEW completed Loop Recorder Interrogation, Remote Kristian Knott DO INTERROGATION EVALUATION REMOTE </30 D ILR SYS completed ICM Interrogation, Remote (Tech) Kristian Knott DO INTERROGATION EVAL REMOTE </30 D TECH REVIEW completed Loop Recorder Interrogation, Remote Kristian Knott DO INTERROGATION EVALUATION REMOTE </30 D ILR SYS completed ICM Interrogation, Remote (Tech) Kristian Knott DO INTERROGATION EVAL REMOTE </30 D TECH REVIEW completed Loop Recorder Interrogation, Remote Kristian Knott DO INTERROGATION EVALUATION REMOTE </30 D ILR SYS completed ICM Interrogation, Remote (Tech) Kristian Knott DO INTERROGATION EVAL REMOTE </30 D TECH REVIEW completed Loop Recorder Interrogation, Remote Kristian Knott DO INTERROGATION EVALUATION REMOTE </30 D ILR SYS completed ICM Interrogation, Remote (Tech) Kristian Knott DO INTERROGATION EVAL REMOTE </30 D TECH REVIEW completed Loop Recorder Interrogation, Remote Kristian Knott DO INTERROGATION EVALUATION REMOTE </30 D ILR SYS completed ICM Interrogation, Remote (Tech) Kristian Knott DO INTERROGATION EVAL REMOTE </30 D TECH REVIEW completed Loop Recorder Interrogation, Remote Kristian Knott DO INTERROGATION EVALUATION REMOTE </30 D ILR SYS completed ICM Interrogation, Remote (Tech) Kristian Knott DO INTERROGATION EVAL REMOTE </30 D TECH REVIEW completed Loop Recorder Interrogation, Remote Kristian Knott DO INTERROGATION EVALUATION REMOTE </30 D ILR SYS completed ICM Interrogation, Remote (Tech) Kristian Knott DO INTERROGATION EVAL REMOTE </30 D TECH REVIEW completed EKG Kristian Knott DO completed SNOMED-CT: [id number] Current Medications Documented Kristian Knott DO completed Loop Recorder Interrogation, Remote Kristian Knott DO INTERROGATION EVALUATION REMOTE </30 D ILR SYS completed ICM Interrogation, Remote (Tech) Kristian Knott DO INTERROGATION EVAL REMOTE </30 D TECH REVIEW completed
--- OUTSIDE RECORDS SUMMARY | 2024-12-13 10:26 | XMS_ITS | Continuity of Care Document ---
Author Organization [facility] Address [address] [facility] [address] [place] [phone] Phone Care Team Providers Care Diagnostic Tech Name Role Phone Lázaro Perdomo MD, FACS Unavailable Unavailab le Allergies, Adverse Reactions, Alerts Substance Reaction Status Criticality CEPHALEXIN MONOHYDRATE Active No In formation Medications Medication Instructions Dosage Effective Dates (start - stop) Status Comments Synthroid 137 mcg tablet take 1 tablet by oral route every day 137 MCG - Active Celebrex 200 mg capsule take 1 capsule by oral route 2 times every day as needed 200 MG - Active verapamil 120 mg tablet take 1 tablet by oral route 3 times every day 120 MG - Active losartan 100 mg-hydrochlorothiaz josephine 12.5 mg tablet take 1 tablet by oral route every day 1.00 tablet - Active Lipitor 10 mg tablet take 1 tablet by oral route every day 10 MG - Active Trulicity 0.75 mg/0.5 mL subcutaneous pen injector inject (0.75MG) by subcutaneous route every week 0.75 MG - Active Januvia 25 mg tablet take [...] Providers Copied on Encounter Office/outpa tient Visit, [facility], [address], [place], [place], [address], [place] tel:[phone] SEC [place] ESC[place] Professional YAG PC (chief complaint) Presence of intraocular lens 4 Conor Sesay. [address], [address], [place], [place], [address], [place]. tel:[phone] Referring Provider: Jordy Wooyd, [address] [facility] [address], [place], [address] . tel:[phone] Office/outpa tient Visit, [facility], [address], [place], [place], [address], [place] tel:[phone] [place] Professional Follow up visit (chief complaint) Other secondary cataract, bilateralPrese nce of intraocular lensType 2 diabetes mellitus without complicationsD ry eye syndrome of bilateral lacrimal glands 4 Jose OD Jennie. [facility] [address], [address], [place], [place], [address], [place]. tel:[phone] Referring Provider: Jordy Woody, [address], [place], [address] . tel:[phone] [facility], [facility] [address], [place], [place], [address], [place] tel:[phone] [place] Complete Exam (chief complaint) Type 2 diabetes mellitus without complicationsP resence of intraocular lensHistory of laser assisted in situ keratomileusis Drusen (degenerative) of macula, bilateral 3 Jose OD Jennie. [facility] [employer], [address], [place], [place], [address], [place]. tel:[phone] Referring Provider: Jordy Woody, [address], [place], [address] . tel:[phone] [facility], [facility] [address], [place], [place], [address], [place] tel:[phone] [place] office visit (chief complaint) Type 2 diabetes mellitus without complicationsP resence of intraocular lensHistory of laser assisted in situ keratomileusis 2 Justo Spence. [address], [address], [place], [place], [address], [place]. tel:[phone] Referring Provider: Jordy Woody, [address], [place], [address] . tel:[phone] [facility], [facility] [address], [place], [place], [address], [place] tel:[phone] [place] 2 wk CE PO (06/19/21) (chief complaint) Post op visit 2 Jose OD Jennie. [address] [address], [address], [place], [place], [address], . tel:[phone] Referring Provider: Jordy Woody, [address], [place], [address] . tel:[phone] [facility]ly [facility] Eye [facility], [address], [place], [place], [address], tel:[phone] [place] Professional post op (chief complaint) Post op visit 1 Jose OD Jennie. [facility] [employer], [address], [place], [place], [address], . tel:[phone] Referring Provider: Jordy Woody, [address], [place], [address] . tel:[phone] [facility], [address], [place], [place], [address], tel:[phone] [place] 1 day CE PO (06/19/21) (chief complaint) Post op visit 1 Jose OD Jennie. [address] [employer], [address], [place], [place], [address], [place]. tel:[phone] Referring Provider: Jordy Woody, [address], [place], [address] . tel:[phone] [facility], [address], [place], [place], [address], tel:[phone] [facility] No Information 1 Justo Spence. [address], [place], [address], [place]. tel:[phone] Referring Provider: Jordy Woody, [address] [facility] [address], [place], [address] . tel:[phone] [facility], [address], [place], [place], [address], tel:[phone] SEC [place] ESCOBEDO Professional No Information 1 Justo Spence. [address] [facility] [address], [address], [place], [place], [address], . tel:[phone] Referring Provider: Jordy Woody, [address] [address], [place], [address] . tel:[phone] [facility], [address], [place], [place], [address], tel:[phone] [place] Professional 2 wk po PCIOL OS (05/27/21) (chief complaint) Post op visit 1 Jose OD Jennie. [facility] [employer], [address], [place], [place], [address], [place]. tel:[phone] Referring Provider: Jordy Woody, [address] [facility] [address], [place], [address] . tel:[phone] [facility], [address], [place], [place], [address], [place] tel:[phone] [place] Professional 1 day CE PO (05/27/21) (chief complaint) Post op visit 1 Jose OD Jennie. [facility] [employer], [address], [place], [place], [address], . tel:[phone] Referring Provider: Jordy Woody, [address] [facility] [address], [place], [address] . tel:[phone] [facility], [address], [place], [place], [address], [place] tel:[phone] [facility] No Information 1 Justo Spence. [address] [facility], [address], [place], [place], [address], . tel:[phone] Referring Provider: Jordy Woody, [address] [facility] [address], [place], [address] . tel:[phone] [facility], [address] [place] [address] [address], [place], [place], [address], [place] tel:[phone] SEC [place] ESCOBEDO Professional No Information 1 Justo Spence. [address] [facility], [address], [place], [place], [address], . tel:[phone] Referring Provider: Jordy Woody, [address] [facility] [address], [place], [address] . tel:[phone] Office/outpa tient Visit, [facility], [address] [place] [address] [address], [place], [place], [address], [place] tel:[phone] [place] Complete Exam (chief complaint) Age-related nuclear cataract, bilateralDruse n (degenerative) of macula, bilateralType 2 diabetes mellitus without complicationsH istory of laser assisted in situ keratomileusis Apr- 1 Justo Spence. [address] [facility], [address], [place], [place], [address], [place]. tel:[phone] Referring Provider: Jordy Woody, [address] [facility] [address], [place], [address] . tel:[phone] [facility], [address] [place] [address] [address], [place], [place], [address], [place] tel:[phone] [place] Professional Diabetic eye exam (chief complaint) Nuclear sclerosisDiabe bernadine 5 Gonzalez Becerril. [address] [facility], [address], [place], [place], [address], [place]. tel:[phone] Referring Provider: Jone Zapata, [address], [place], [address] . tel:[phone] Family History Family Member Type Diagnosis Age At Onset Sister Problem (finding) diabetes jarvis porter in first degree relative Payers Payer name Insurance type Covered libertarian ID Authorbassem moreau(s) [facility] Mdcr Adv CI [id number] Social History Type Description Quantity Date Captured [...]
--- OUTSIDE RECORDS SUMMARY | 2024-12-13 10:26 | XMS_ITS | Clinical Summary ---
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
[2025-01-05 09:11] VITALS: BMI 36.9
--- NOTE | 2025-01-05 09:11 | WPDSLEEPSTUD ---
Sleep Study Date of Study: 12/13/24 Ordering Provider: Benjamin Davis DO Interpreting Physician: Cynthia Mcmahon DO Sleep Study Type: Polysomnogram Height: 1.75 m Weight: 113.398 kg Body Mass Index: 36.9 Neck Circumference (inches): 18 Carr: 3 Reason for Sleep Study Evaluation for LOVE due to multiple comorbidities. Sleep History The patient is a 69-year-old female that had a sleep study ordered by her medical administrative technician for evaluation of sleep apnea. The patient denies awakening at night with heartburn, belching or cough. She occasionally has trouble sleeping when she has a cold. She occasionally wakes up gasping for air throughout the night. She denies having breathing problems at night observed by herself or others. She occasionally sweats excessively at night. She denies having heart palpitations or irregular heartbeats during the night. She denies falling asleep during the day and while driving. She denies sleep paralysis, cataplexy and hypnagogic/ hypnopompic hallucinations. She denies having trouble at school or work due to sleepiness. She denies feeling afraid of going to sleep. She denies having nightmares. She occasionally remembers her dreams. She occasionally has thoughts racing through her mind. She denies feeling sad or depressed. She occasionally has anxiety. She occasionally has muscular tension. She occasionally notices parts of her body jerk. She occasionally kicks during the night she occasionally has crawling and aching feelings legs and frequently has leg pain during the night. She frequently grinds her teeth during sleep but never awakens with morning jaw pain. She is frequently bothered by pain during the day and occasionally awakened by pain during the night. She frequently wakes up feeling stiff in the morning. She occasionally wakes up with sore or achy muscles. She frequently wakes up with pain in the neck, spine and other joints. She goes to bed 10:00 p.m. on weekdays and between 10-11 p.m. on the weekends. She is able to fall asleep relatively quickly. She wakes up 3-4 times throughout the night to urinate and is able to fall back asleep immediately. She wakes up at 8:00 a.m. every morning. She typically gets 6-8 hours of sleep per night. She will stay in bed for 1 hour after waking up in the morning. She currently lives with her . She denies consuming any caffeinated beverages within 2 hours of bedtime. She denies engaging in physical exercise before bedtime. She will watch television before falling asleep. She denies reading before falling asleep. She denies taking naps in the afternoon or the evening. She denies consuming any caffeinated beverages throughout the day. She denies tobacco, alcohol and recreational drug use. [facility] Past Medical History Medical History Patellar bursitis of right knee CHF (congestive heart failure) Right knee DJD BMI 40.0-44.9, adult Breast cancer screening Abnormal mammogram of right breast Body mass index (BMI) of 40.1 to 44.9 in adult Brachial neuritis of both upper extremities TIA (transient ischemic attack) History of atrial fibrillation CVA (cerebral vascular accident) Acute right-sided muscle weakness Bilateral cataracts Tinea pedis of left foot Degenerative joint disease of knee Acquired hypothyroidism Chronic kidney disease, stage 3 (moderate) Essential (primary) hypertension Hypersomnia Mixed hyperlipidemia Tricompartment osteoarthritis of left knee Vitamin D deficiency, unspecified History of radioactive iodine thyroid ablation Surgical History Surgical History H/O cataract extraction History of arthroscopy of both shoulders Arthroplasty History of carpal tunnel release of both wrists ulnar nerve release as well History of hysterectomy History of cholecystectomy Family History Family History Sibling Family history of cardiovascular disease, Onset Age: 62 Diabetes mellitus Family history of malignant neoplasm Mother Hypertension Patient's father is Father Patient's father is Other Family history of arthritis Social History Social History Social History: and has 3 children. She is a lifelong nonsmoker. She does not use any alcohol marijuana or illicit drugs. She is worked in a grocery store. Her is a durable power chartered wealth manager for healthcare. Code status full code. Smoking status: Never smoker Second hand tobacco smoke exposure: No Alcohol intake: never Substance use: never Substance use type: does not use Do You Feel Safe in your Home?: Yes Lack of Transportation: No Lack of Food: Never True Current Housing: I Have Housing Concerned About Future Housing: No Difficulty Paying Gas/Electric Bills: No Difficulty Paying for Meds: No Currently Unemployed: No Education: High School Diploma/GED Difficulty w/ Childcare or Family Care: No Living arrangements: with family Occupation/Education: retired Gender identity (if verbalized by the patient): Female Sexual Orientation (if Verbalized by the Patient): Straight or Heterosexual Spiritual care concerns: No Medications Home Medications ?Medication ?Instructions ?Recorded ?Confirmed ?Type blood sugar diagnostic (OneTouch #100 ea 05/26/23 11/10/24 Rx Verio test strips) levothyroxine 137 mcg tablet 137 mcg PO DAILY #90 tabs 02/26/24 11/10/24 Rx apixaban 5 mg tablet (Eliquis) 5 mg PO BID #60 tabs 08/15/24 11/10/24 Rx atorvastatin 10 mg tablet See Rx Instructions .Route 09/12/24 11/10/24 Rx .COMPLEX #90 tabs furosemide 20 mg tablet 20 mg PO DAILY 30 days #30 tabs 11/05/24 11/10/24 Rx nitrofurantoin 100 mg PO Q12HR 3 days #6 caps 11/05/24 11/10/24 Rx monohydrate/macrocrystals 100 mg capsule (Macrobid) pantoprazole 40 mg tablet,delayed 40 mg PO QAM 14 days #14 tabs 11/05/24 11/10/24 Rx release sotalol 80 mg tablet 80 mg PO Q12HR 30 days #60 tabs 11/05/24 11/10/24 Rx ketoconazole 2 % topical cream 1 applic topical BID #60 grams 12/08/24 Rx Sleep Procedure A full night polysomnogram using the Celtax[employer] multi-channel system recorded the standard physiologic parameters including EEG, EOG, submentalis EMG, anterior tibialis EMG, EKG, body position, nasal and oral airflow using nasal pressure sensor and thermistor.? Respiratory parameters of chest and abdominal movements were recorded with Respiratory Inductance Plethysmography belts. Oxygen saturation was recorded by pulse oximetry. Video monitoring was also performed. Sleep stages, periodic limb movements, and EEG arousals were scored in 30 second epochs according to the criteria of the AASM Scoring Manual. The Apnea-Hypopnea Index was calculated using CMS guidelines for definition of hypopnea with 4% O2 desaturations while scoring respiratory events. Sleep Architecture The total recording time was 464.5 minutes.? The total sleep time was 122.5 minutes. Sleep latency was 84.3 minutes. REM sleep was not achieved during this study. Sleep efficiency was 26.4%. The patient had 45 awakenings for an awakening index of 22.0. Wake after sleep onset time was 257.5 minutes. The patient spent 66.5 minutes, 54.3% of total sleep time in Stage N1. The patient spent 56.0 minutes, 45.7% in Stage N2. The patient spent 0.0 minutes, 0.0% in Stage N3. The patient spent 0.0 minutes, 0.0% in Stage REM sleep. Respiratory Analysis The patient had 8 hypopneas and 1 obstructive apnea for an overall Apnea Hypopnea Index of 4.4. The REM Apnea Hypopnea Index was 0. The NREM Apnea Hypopnea Index was 4.4. The patient had a Central Apnea Hypopnea Index of 0. There was no evidence of Collin-Rocha Respirations. Arousals There were 101 total arousals for an arousal index of 49.5. There were 30 spontaneous arousals for an index of 14.7. There were 25 arousals due to respiratory events for an index of 12.2. There were 36 arousals due to periodic limb movements for an index of 17.6.? There were 16 arousals due to isolated limb movements for an index of 7.8. Periodic Limb Movements The patient had 41 isolated limb movements with an index of 20.1. The patient had 154 periodic limb movements with an index of 75.4, which is elevated (normal < 15). Patient had a total of 195 limb movements with a total limb movement index of 95.5. Oximetry Data The patient had an average oxygen saturation of 97.4% in sleep with a minimum oxygen saturation of 90.0% and a maximum oxygen saturation of 99.0%. The patient had 10 oxygen desaturations that were 4% or greater resulting in an Oxygen Desaturation Index of 4.9.? The patient spent 0 minutes of total sleep time with an oxygen saturation below 88%. Snoring Profile Snoring was present throughout the study. Cardiac Profile The EKG showed normal sinus rhythm with frequent PVCs and intermittent trigeminy.?The patient had an average pulse rate of 55.3 bpm with a minimum pulse of rate of 45.0 bpm and a maximum pulse rate of 69.0 bpm.? EEG Profile No signs of seizure activity seen. Assessment and Plan Assessment and Plan (1) Sleep disturbances: Code(s): G47.9 - Sleep disorder, unspecified Status: Acute Assessment and Plan: The patient had an overall AHI 4.4 with desaturation down to 90%. This is not consistent with sleep disordered breathing. The patient had a sleep efficiency of 26.4%, which is extremely poor. Due to the patient's poor sleep efficiency and lack of REM sleep, the results of this study are not as accurate. Her AHI was likely underestimated. I recommend that the patient repeat the polysomnogram with the use of a hypnotic to ensure we obtain enough sleep data. (2) PLMD (periodic limb movement disorder): Code(s): G47.61 - Periodic limb movement disorder Status: Acute Assessment and Plan: The patient had a significant number of limb movements during the study with the majority being periodic in nature. Approximately 25% of the periodic limb movements caused arousals in the patient's sleep. The patient's sleep history is somewhat suggestive of Restless Leg Syndrome. I recommend that the patient have a serum ferritin drawn for evaluation of iron deficiency anemia. If the patient has a serum ferritin less than 75 ng/mL, I recommend starting a daily iron supplement and a Vitamin C supplement for better absorption. If the serum ferritin is greater than 75 ng/mL, I recommend starting a dopamine agonist and titrating the dose until symptoms resolve. There are nonpharmacological methods to treat limb movements including daily exercise, stretching calf muscles before bed, avoiding excessive amounts of caffeine and alcohol, vitamin B supplementation, magnesium lotion massaged into legs before bed, and use of a weighted blanket. Data The data obtained during this sleep study is adequate for interpretation. Certification This sleep study has been reviewed by a board certified sleep medicine physician.
== END 2024-12-14 05:50 | disposition home or self-care (01) ==
LOC: ANHCSM 09:45
PROVIDERS: PCP Family Medicine; Visit Provider Internal Medicine Cardiovascular Disease
DX: G47.9 Sleep disorder, unspecified (principal); G47.10 Hypersomnia, unspecified
CPT/HCPCS: 95810

== ENCOUNTER 2025-05-29 08:19 | Outpatient (CLI) | payer MEDICARE, SELFPAY ==
--- NOTE | ~2025-05-29 | DEXA_ITS ---
Bone Density Report Name: KIAH OSCAR Age: 70 Sex: Female Ethnicity: White Date of : 1955 Indication: postmenopausal; screening for osteoporosis; height loss; hysterectomy; Referring Provider: EVELYNE CAMPBELL Study: Bone densitometry was performed. Exam Date: May 29, 2025 Accession number: [id number] Bone Density: Region BMD T-score Z-score Classification AP Spine(L1-L4) 1.000 -0.4 1.8 Normal Femoral Neck (Left) 0.721 -1.1 0.8 Osteopenia Total Hip (Left) 0.838 -0.9 0.8 Normal Femoral Neck (Right) 0.542 -2.8 -0.8 Osteoporosis Total Hip (Right) 0.728 -1.8 -0.1 Osteopenia Total Hip Mean 0.783 -1.4 0.4 Osteopenia World Health Organization criteria for BMD impression classify patients as: Normal (T-score at or above -1.0), Osteopenia (T-score between -1.0 and -2.5), or Osteoporosis (T-score at or below -2.5). 10-year Fracture Risk: FRAX not reported because: Some T-score for Spine Total or Hip Total or Femoral Neck at or below -2.5 Previous Exams: -- Region Exam Age BMD T-score BMD Change BMD Change Date g/cm2 vs Baseline vs Previous -- AP Spine (L1-L4) 05/29/2025 70 1.000 -0.4 -2.8%* -2.8%* 09/01/2020 65 1.028 -0.2 Total Hip(Left) 05/29/2025 70 0.838 -0.9 -11.3%# -11.3%# 09/01/2020 65 0.944 0.0 Total Hip(Right) 05/29/2025 70 0.728 -1.8 -12.7%# -12.7%# 09/01/2020 65 0.833 -0.9 -- *Denotes significance at 95% confidence level, LSC for AP Spine = 0.022 g/cm2, LSC for Total Hip = 0.027 g/cm2 # Denotes dissimilar scan types or analysis methods Clinical Information Provided by Patient: Has used the following medications: Vitamin D Has the following medical conditions: Hysterectomy, hypothyroid Patient maximum height was 69 Menopause Age: 53 No regular weight bearing exercise Does not regularly consume dairy products Onset of menses at age 11 Number of children 3 Impression: The patient has osteoporosis, based on the Right Femoral Neck T-score. The BMD for the AP Spine (L1-L4) decreased, changing by -2.8% since the last DXA exam. Discussion: INCREASED RISK OF FRACTURE. BONE DENSITY IS UNDESIRABLY LOW AT ONE OR MORE SKELETAL SITES, CONSISTENT WITH POSTMENOPAUSAL OSTEOPOROSIS. This patient's lowest T-score meets the World Health Organization's (WHO) criteria for osteoporosis at one or more sites (T-score -2.5 or below). In untreated patients, the risk of osteoporotic fracture increases approximately two-fold for each 1.0 SD decrease in T-score. Low bone density is not the only risk factor for fracture; also consider factors such as patient's age, frailty or poor health, risk of falling, risk of injury, previous osteoporotic fracture, family history of osteoporosis, cigarette smoking, low body weight, etc. Not everyone with low bone mineral density has osteoporosis; osteomalacia and other metabolic bone disorders should also be considered. Patients who have osteoporosis should be evaluated for specific diseases and conditions (secondary causes) that may cause or contribute to bone loss. The [place] Association of Clinical Endocrinologists (AACE) and National Osteoporosis Foundation (NOF) recommend pharmacologic intervention for all postmenopausal women whose T-score is in this range. The patient should follow a healthful lifestyle (good nutrition with adequate calcium and vitamin D, and appropriate weight-bearing exercise). Follow-Up: Consider a repeat BMD and Vertebral Fracture Assessment (VFA) exam in 2 years or sooner if medically necessary, to reassess this patient's status. Reported by: HEATH on 05/29/2025 8:42:00 AM. Reviewed, dictated and finalized at location A.
== END 2025-05-29 08:20 | disposition home or self-care (01) ==
LOC: MICIMG 08:20
PROVIDERS: PCP Family Medicine; Visit Provider Physician Assistant
DX: M81.0 Age-related osteoporosis without current pathological fracture (principal); Z78.0 Asymptomatic menopausal state; Z13.820 Encounter for screening for osteoporosis; Z12.31 Encounter for screening mammogram for malignant neoplasm of breast
CPT/HCPCS: 77080